=== PATIENT | male | born 1950 | race Caucasian/White ===

== ENCOUNTER 2018-10-20 14:41 | Emergency (ER) | payer MEDICARE, OTHER ==
[~2018-10-20] VITALS: Ht 172.7 cm; Wt 79.8 kg
[~2018-10-20 14:41] MED LIST: ASP81TEC PO; AZTH250C PO; ENLP5T PO; GLYB5TAB6 PO; INSU100I10 SQ; LEVO500T69 PO; SIMV20TA3 PO; SITA100T PO
--- OUTSIDE RECORDS SUMMARY | 2018-10-20 14:47 | XMS REPORT | CCD ---
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 Name Role Phone PP Unavailable CCM Unavailable Summary Purpose Interface Exchange Insurance Providers Payer name Policy type / Coverage type Covered constitution party ID Effective Begin Date Effective End Date [employer] Commercial Insurance [id number] Unknown Unknown WPS Medicare Part B Commercial Insurance [id number] Unknown Unknown Family history Mother Diagnosis Age At Onset Hypertension Unknown Father Diagnosis Age At Onset Cancer Unknown Social History Social History Element Codes Description Effective Dates Tobacco history SNOMED CT: 339644090 Currently uses smokeless tobacco Chews 11/26/2015 Frequency of drinks SNOMED CT: 938821335 14 drinks per week About 2 beers per night- More on Fridays11/26/2015 Marital status Unknown [place] 11/11/2014 Number of children Unknown 3 11/11/[address]: 710190 Currently drinks alcohol beer 11/11/2014 Allergies, Adverse Reactions, Alerts Substance Reaction Codes Entered Date Inactivated Date Status * NO KNOWN FOOD ALLERGIES Unknown 11/11/2014 No Inactive Date Active * NO KNOWN DRUG ALLERGIES Unknown 11/11/2014 No Inactive Date Active Past Medical History Illness Codes Condition Status Onset Date Resolved Date Essential (primary) hypertension ICD-9: 401.1 ICD-10: I10 Active 06/23/2016 Unknown Mixed hyperlipidemia ICD-9: 272.2 ICD-10: E78.2 Active 06/13/2017 Unknown Type 2 diabetes mellitus with hyperglycemia ICD-9: 250.02 ICD-10: E11.65 Active 11/10/2014 Unknown Diabetes Unknown Active 06/13/2017 Unknown Dysuria ICD-9: 788.1 ICD-10: R30.0 Active 06/13/2017 Unknown Type 2 diabetes mellitus without complications ICD-9: 250.00 ICD-10: E11.9 Active 02/24/2016 Unknown Essential (primary) hypertension ICD-9: 401.9 ICD-10: I10 Active 11/10/2014 Unknown Hyperlipidemia, unspecified ICD-9: 272.4 ICD-10: E78.5 Active 11/10/2014 Unknown ESSENTIAL HYPERTENSION ICD-9: 401.9 Active 11/10/2014 Unknown Hyperlipidemia Unknown Active 11/11/2014 Unknown Hypertension Unknown Active 11/11/2014 Unknown Diabetes mellitus out of control ICD-9: 250.02 Active 2014 Unknown HYPERLIPIDEMIA ICD-9: 272.4 Active 11/10/2014 Unknown Problems Condition Codes Effective Dates Condition Status Essential (primary) hypertension ICD-9: 401.1 ICD-10: I10 06/23/2016 Active Mixed hyperlipidemia ICD-9: 272.2 ICD-10: E78.2 06/13/2017 Active Type 2 diabetes mellitus with hyperglycemia ICD-9: 250.02 ICD-10: E11.65 11/10/2014 Active Diabetes Unknown 06/13/2017 Active Dysuria ICD-9: 788.1 ICD-10: R30.0 06/13/2017 Active Type 2 diabetes mellitus without complications ICD-9: 250.00 ICD-10: E11.9 02/24/2016 Active Essential (primary) hypertension ICD-9: 401.9 ICD-10: I10 11/10/2014 Active Hyperlipidemia, unspecified ICD-9: 272.4 ICD-10: E78.5 11/10/2014 Active ESSENTIAL HYPERTENSION ICD-9: 401.9 11/10/2014 Active Hyperlipidemia Unknown 11/11/2014 Active Hypertension Unknown 11/11/2014 Active Diabetes mellitus out of control ICD-9: 250.02 11/10/2014 Active HYPERLIPIDEMIA ICD-9: 272.4 11/10/2014 Active Medications Medication Codes Instructions Start Date Stop Date Status Fill Instructions Lantus Solostar U-100 Insulin 100 unit/mL (3 mL) subcutaneous pen RxNorm: 942530 INJECT 30 UNITS UNDER THE SKIN TWO TIMES A DAY 10/0603/04/2019 Active Lantus Solostar U-100 Insulin 100 unit/mL (3 mL) subcutaneous pen RxNorm: 083683 INJECT 30 UNITS UNDER THE SKIN TWO TIMES A DAY 08/0110/05/2018 Inactive Lantus Solostar U-100 Insulin 100 unit/mL (3 mL) subcutaneous pen RxNorm: 108658 Unit(s) INJECT 35 UNITS UNDER THE SKIN TWO TIMES A DAY 07/10/2018 07/31/2018 Inactive Updated script atorvastatin 40 mg tablet RxNorm: 072084 TAKE ONE TABLET BY MOUTH DAILY 06/15/2018 12/11/2018 Active Lantus Solostar U-100 Insulin 100 unit/mL (3 mL) subcutaneous pen RxNorm: 981785 INJECT 30 UNITS UNDER THE SKIN TWO TIMES A DAY 05/0407/09/2018 Inactive Lantus Solostar U-100 Insulin 100 unit/mL (3 mL) subcutaneous pen RxNorm: 183262 INJECT 30 UNITS UNDER THE SKIN TWO TIMES A DAY 01/2004/29/2018 Inactive atorvastatin 40 mg tablet RxNorm: 253228 TAKE ONE TABLET BY MOUTH DAILY 12/12/2017 06/09/2018 Inactive Lantus Solostar U-100 Insulin 100 unit/mL (3 mL) subcutaneous pen RxNorm: 121058 INJECT 30 UNITS UNDER THE SKIN TWO TIMES A DAY 11/0701/19/2018 Inactive enalapril maleate 10 mg tablet RxNorm: 277311 1 Tablet(s) PO daily TAKE ONE TABLET BY MOUTH DAILY 10/11/20172018 Active enalapril maleate 10 mg tablet RxNorm: 827291 TAKE ONE TABLET BY MOUTH DAILY 07/11/2017 10/10/2017 Inactive enalapril maleate 10 mg tablet RxNorm: 843643 1 Tablet(s) PO daily TAKE ONE TABLET BY MOUTH DAILY 07/11/20172017 Inactive Lantus Solostar 100 unit/mL (3 mL) subcutaneous insulin pen RxNorm: 947699 INJECT 55 UNITS UNDER THE SKIN DAILY 07/05/2017 07/09/2018 Inactive Request already responded to by other means (e.g. phone or fax) OneTouch Verio strips RxNorm: USE TO TEST BLOOD SUGAR DAILY 11/06/2017 Inactive Lantus Solostar U-100 Insulin 100 unit/mL (3 mL) subcutaneous pen RxNorm: 033697 30 Unit(s) SQ BID 06/28/201707/2017 Inactive Lantus Solostar 100 unit/mL (3 mL) subcutaneous insulin pen RxNorm: 175398 30 Unit(s) BID 06/14/2017 06/17/2017 Inactive Lantus Solostar 100 unit/mL (3 mL) subcutaneous insulin pen RxNorm: 362809 INJECT 55 UNITS UNDER THE SKIN DAILY 03/09/2017 06/13/2017 Inactive enalapril maleate 10 mg tablet RxNorm: 325157 TAKE ONE TABLET BY MOUTH DAILY 12/31/2016 06/28/2017 Inactive atorvastatin 40 mg tablet RxNorm: 799602 TAKE ONE TABLET BY MOUTH DAILY 11/19/2016 11/13/2017 Inactive Lantus Solostar 100 unit/mL (3 mL) subcutaneous insulin pen RxNorm: 737687 55 Unit(s) daily 10/12/2016 03/08/2017 Inactive Lantus Solostar 100 unit/mL (3 mL) subcutaneous insulin pen RxNorm: 909001 INJECT 40 UNITS UNDER THE SKIN EVERY EVENING 07/22/2016 10/11/2016 Inactive enalapril maleate 10 mg tablet RxNorm: 830419 TAKE ONE TABLET BY MOUTH DAILY 03/23/2016 12/17/2016 Inactive Lantus Solostar 100 unit/mL (3 mL) subcutaneous insulin pen RxNorm: 063679 40 Unit(s) SQ QPM 01/14/2016 07/21/2016 Inactive atorvastatin 40 mg tablet RxNorm: 393486 1 Tablet(s) PO daily 11/20/2015 11/13/2016 Inactive Lantus Solostar 100 unit/mL (3 mL) subcutaneous insulin pen RxNorm: 312283 40 Unit(s) SQ QPM 01/22/2015 01/13/2016 Inactive please use for next fill 90 day supply OneTouch Verio strips RxNorm: 1 test Miscellaneous TID as needed 01/22/2015 06/27/2017 Inactive BD Pen Mini subcutaneous RxNorm: 1 SQ daily 01/21/2015 No Stop Date Active needles to fit lantus pen Lantus Solostar 100 unit/mL (3 mL) subcutaneous insulin pen RxNorm: 183579 35 u x 3 days then 40 u daily there after Unit(s) SQ QPM 201401/21/2015 Inactive please use for next fill 90 day supply glyburide 5 mg tablet RxNorm: 797641 1 Tablet(s) PO BID 201401/17/2015 Inactive enalapril maleate 10 mg tablet RxNorm: 893274 1 Tablet(s) PO daily 11/11/2014 11/10/2014 Inactive atorvastatin 40 mg tablet RxNorm: 123599 1 Tablet(s) PO daily 11/11/2014 11/10/2014 Inactive Lantus Solostar 100 unit/mL (3 mL) subcutaneous insulin pen RxNorm: 214882 30 Unit(s) SQ QPM 11/11/2014 01/20/2015 Inactive atorvastatin 40 mg tablet RxNorm: 804824 1 Tablet(s) PO daily 11/11/2014 11/05/2015 Inactive enalapril maleate 10 mg tablet RxNorm: 577226 1 Tablet(s) PO daily 11/11/2014 11/05/2015 Inactive BD Pen Mini subcutaneous RxNorm: 1 SQ daily No Start Date 01/20/2015 Inactive needles to fit lantus pen glyburide 5 mg tablet RxNorm: 766402 1 Tablet(s) PO daily No Start Date 11/10/2014 Inactive Medication Administered No Medication Administered data Immunizations No Immunization data Assessments Condition Codes Effective Dates Type 2 diabetes mellitus with hyperglycemia ICD-10: E11.65 ICD-9: 250.02 07/05/2018 Mixed hyperlipidemia ICD-10: E78.2 ICD-9: 272.2 07/05/2018 Essential (primary) hypertension ICD-10: I10 ICD-9: 401.1 07/05/2018 Type 2 diabetes mellitus without complications ICD-10: E11.9 ICD-9: 250.00 06/13/2017 Dysuria ICD-10: R30.0 ICD-9: 788.1 06/13/2017 Essential (primary) hypertension ICD-10: I10 ICD-9: 401.9 11/26/2015 Hyperlipidemia, unspecified ICD-10: E78.5 ICD-9: 272.4 11/20/2015 ESSENTIAL HYPERTENSION ICD-9: 401.9 01/22 Diabetes mellitus out of control ICD-9: 250.02 01/22/2015 HYPERLIPIDEMIA ICD-9: 272.4 11/11/2014 Reason For Visit Reason For Visit Effective Dates Notes diabetes mellitus 07/05/2018 diabetes mellitus 06/13/2017 diabetes mellitus 10/12/2016 diabetes mellitus 06/23/2016 diabetes mellitus 02/25/2016 diabetes mellitus 01/14/2016 diabetes mellitus 12/10/2015 diabetes mellitus 11/26/2015 diabetes mellitus 01/22/2015 diabetes mellitus 11/11/2014 Results Observation Observation Code Item Item Code Result Date Lipid Ord30 CHOL 106 mg/dL 07/06/2018 Lipid Ord30 HDL 33.0 mg/dl 07/06/2018 Lipid Ord30 TRIG 76 mg/dL 07/06/2018 Lipid Ord30 LDL 58 mg/dL 07/06/2018 Lipid Ord30 C/HDL 3.2 Ratio 07/06/2018 Comp Metabolic Tbd630 NA 140 mEq/L 07/06/2018 Comp Metabolic Hmp015 K 4.4 mEq/L 07/06/2018 Comp Metabolic Liv181 CL 103 mEq/L 07/06/2018 Comp Metabolic Gtj373 CO2 31.0 mEq/L 07/06/2018 Comp Metabolic Ngl462 ANION GAP 10 07/06/2018 Comp Metabolic Hve407 GLUCOSE 151 mg/dL 07/06/2018 Comp Metabolic Mzd683 Creat 0.8 mg/dL 07/06/2018 Comp Metabolic Hwi037 eGFR 105 ml/min/1.73m2 07/06/2018 Comp Metabolic Fiw329 BUN 10 mg/dL 07/06/2018 Comp Metabolic Ahb545 B/C Ratio 12.8 Ratio 07/06/2018 Comp Metabolic Kln430 CALCIUM 8.8 mg/dL 07/06/2018 Comp Metabolic Ozm049 ALK PHOS 87 U/L 07/06/2018 Comp Metabolic Moi641 AST(SGOT) 16 U/L 07/06/2018 Comp Metabolic Fzc280 ALT(SGPT) 23 U/L 07/06/2018 Comp Metabolic Bom934 BILI T 1.0 mg/dL 07/06/2018 Comp Metabolic Soo653 ALBUMIN 4.1 g/dL 07/06/2018 Comp Metabolic Cxi181 TPRO 6.4 g/dL 07/06/2018 Comp Metabolic Muu055 GLOB 2.3 g/dL 07/06/2018 Comp Metabolic Yub618 A/G Ratio 1.8 Ratio 07/06/2018 Comp Metabolic Ymh539 Osmo 281 mOsmo 07/06/2018 Cbc With Differential Ord2 WBC 7.46 K/ul 07/06/2018 Cbc With Differential Ord2 RBC 4.71 M/ul 07/06/2018 Cbc With Differential Ord2 HGB 14.3 g/dl 07/06/2018 Cbc With Differential Ord2 HCT 43.0 % 07/06/2018 Cbc With Differential Ord2 Neut% 62.9 % 07/06/2018 Cbc With Differential Ord2 MCV 91.3 fl 07/06/2018 Cbc With Differential Ord2 Lymph% 26.8 % 07/06/2018 Cbc With Differential Ord2 MCH 30.4 pg 07/06/2018 Cbc With Differential Ord2 [place]% 8.8 % 07/06/2018 Cbc With Differential Ord2 MCHC 33.3 pg 07/06/2018 Cbc With Differential Ord2 Eos% 1.2 % 07/06/2018 Cbc With Differential Ord2 PLT 220 K/ul 07/06/2018 Cbc With Differential Ord2 Baso% 0.3 % 07/06/2018 Cbc With Differential Ord2 RDW 13.9 % 07/06/2018 Cbc With Differential Ord2 Neut ABS# 4.69 K/ul 07/06/2018 Cbc With Differential Ord2 Lymph ABS# 2.00 K/ul 07/06/2018 Cbc With Differential Ord2 [place] ABS# 0.7 K/ul 07/06/2018 Cbc With Differential Ord2 Eos ABS# 0.1 K/ul 07/06/2018 Cbc With Differential Ord2 Baso ABS# 0.0 K/ul 07/06/2018 %Hba1C Bmw516 % HbA1c 40404-2 7.9 % 07/06/2018 %Hba1C Jiy826 Gluc Ave 180 mg/dL 07/06/2018 Total Psa Ord10 PSA 1.18 ng/mL 07/06/2018 Tsh Ord6 TSH (3rd IS) 2.07 uIU/mL 07/06/2018 Microalbumin Hln581 MicroAlb <0.7 mg/dL 06/13/2017 Urinalysis Ord28 U-Color Yellow 06/13/2017 Urinalysis Ord28 U-Clarity Clear 06/13/2017 Urinalysis Ord28 U-Gluc 100 mg/dL 06/13/2017 Urinalysis Ord28 U-Bili Negative 06/13/2017 Urinalysis Ord28 U-Ketone Negative 06/13/2017 Urinalysis Ord28 U-SG 1.020 06/13/2017 Urinalysis Ord28 U-Blood Negative 06/13/2017 Urinalysis Ord28 U-pH 5.5 06/13/2017 Urinalysis Ord28 U-Protein Negative 06/13/2017 Urinalysis Ord28 U-Urobilin 0.2 E.U./dL E.U./dL 06/13/2017 Urinalysis Ord28 U-Nitrites Negative 06/13/2017 Urinalysis Ord28 U-Leuk Negative 06/13/2017 Urinalysis Ord28 U-Bact None 06/13/2017 Urinalysis Ord28 U-Squamous Epi 0-5 per/HPF 06/13/2017 Urinalysis Ord28 U-Crystal None per/HPF 06/13/2017 Urinalysis Ord28 U-Mucus 1+ 06/13/2017 Urinalysis Ord28 U-Renal tubular epi None 06/13/2017 Urinalysis Ord28 U-RBC RARE per/HPF 06/13/2017 Urinalysis Ord28 U-Transitional epi None per/HPF 06/13/2017 Urinalysis Ord28 U-WBC None per/HPF 06/13/2017 Urinalysis Ord28 U-Cast None per/HPF 06/13/2017 Urinalysis Ord28 U-VOL VOLUME SUFFICIENT (10mL) 06/13/2017 Urinalysis Ord28 U-Yeast NEGATIVE 06/13/2017 Urinalysis Ord28 U-Com Urine saved if culture needed (specimen acceptable for 48 hours from collection if refrigerated) 06/13/2017 Cbc With Differential Ord2 WBC 8.36 K/ul 06/13/2017 Cbc With Differential Ord2 RBC 4.60 M/ul 06/13/2017 Cbc With Differential Ord2 HGB 14.2 g/dl 06/13/2017 Cbc With Differential Ord2 HCT 41.6 % 06/13/2017 Cbc With Differential Ord2 Neut% 68.1 % 06/13/2017 Cbc With Differential Ord2 MCV 90.4 fl 06/13/2017 Cbc With Differential Ord2 Lymph% 21.7 % 06/13/2017 Cbc With Differential Ord2 MCH 30.9 pg 06/13/2017 Cbc With Differential Ord2 [place]% 9.1 % 06/13/2017 Cbc With Differential Ord2 MCHC 34.1 pg 06/13/2017 Cbc With Differential Ord2 Eos% 0.7 % 06/13/2017 Cbc With Differential Ord2 PLT 230 K/ul 06/13/2017 Cbc With Differential Ord2 Baso% 0.4 % 06/13/2017 Cbc With Differential Ord2 RDW 13.8 % 06/13/2017 Cbc With Differential Ord2 Neut ABS# 5.70 K/ul 06/13/2017 Cbc With Differential Ord2 Lymph ABS# 1.81 K/ul 06/13/2017 Cbc With Differential Ord2 [place] ABS# 0.8 K/ul 06/13/2017 Cbc With Differential Ord2 Eos ABS# 0.1 K/ul 06/13/2017 Cbc With Differential Ord2 Baso ABS# 0.0 K/ul 06/13/2017 Lipid Ord30 CHOL 138 mg/dL 06/13/2017 Lipid Ord30 HDL 58.0 mg/dl 06/13/2017 Lipid Ord30 TRIG 83 mg/dL 06/13/2017 Lipid Ord30 LDL 63 mg/dL 06/13/2017 Lipid Ord30 C/HDL 2.4 Ratio 06/13/2017 Comp Metabolic Enr680 NA 140 mEq/L 06/13/2017 Comp Metabolic Zdh407 K 4.6 mEq/L 06/13/2017 Comp Metabolic Fct382 CL 105 mEq/L 06/13/2017 Comp Metabolic Jlf934 CO2 28.0 mEq/L 06/13/2017 Comp Metabolic Cii067 ANION GAP 12 06/13/2017 Comp Metabolic Qaf830 GLUCOSE 126 mg/dL 06/13/2017 Comp Metabolic Avu601 Creat 0.8 mg/dL 06/13/2017 Comp Metabolic Qxq330 eGFR 104 ml/min/1.73m2 06/13/2017 Comp Metabolic Qth036 BUN 14 mg/dL 06/13/2017 Comp Metabolic Blh801 B/C Ratio 17.7 Ratio 06/13/2017 Comp Metabolic Fhg368 CALCIUM 9.4 mg/dL 06/13/2017 Comp Metabolic Aac876 ALK PHOS 74 U/L 06/13/2017 Comp Metabolic Ekf953 AST(SGOT) 19 U/L 06/13/2017 Comp Metabolic Xqj319 ALT(SGPT) 22 U/L 06/13/2017 Comp Metabolic Rfm663 BILI T 1.2 mg/dL 06/13/2017 Comp Metabolic Lwy052 ALBUMIN 4.5 g/dL 06/13/2017 Comp Metabolic Ndx199 TPRO 6.6 g/dL 06/13/2017 Comp Metabolic Rin968 GLOB 2.1 g/dL 06/13/2017 Comp Metabolic Lam526 A/G Ratio 2.1 Ratio 06/13/2017 Comp Metabolic Eus912 Osmo 281 mOsmo 06/13/2017 %Hba1C Nsu388 % HbA1c 04467-4 7.6 % 06/13/2017 %Hba1C Xfi334 Gluc Ave 171 mg/dL 06/13/2017 Tsh Ord6 hTSH II 2.04 uIU/mL 09/14/2016 Comp Metabolic Uvn427 NA 138 mEq/L 09/14/2016 Comp Metabolic Ezk278 K 4.5 mEq/L 09/14/2016 Comp Metabolic Zyr259 CL 103 mEq/L 09/14/2016 Comp Metabolic Qtc823 CO2 29.0 mEq/L 09/14/2016 Comp Metabolic Wsd956 ANION GAP 11 09/14/2016 Comp Metabolic Scj967 GLUCOSE 234 mg/dL 09/14/2016 Comp Metabolic Rtt714 Creat 0.9 mg/dL 09/14/2016 Comp Metabolic Lvs661 eGFR 86 ml/min/1.73m2 09/14/2016 Comp Metabolic Qoh074 BUN 16 mg/dL 09/14/2016 Comp Metabolic Zfv276 B/C Ratio 17.2 Ratio 09/14/2016 Comp Metabolic Fxs841 CALCIUM 9.0 mg/dL 09/14/2016 Comp Metabolic Llm178 ALK PHOS 69 U/L 09/14/2016 Comp Metabolic Ogk907 AST(SGOT) 21 U/L 09/14/2016 Comp Metabolic Wvt431 ALT(SGPT) 26 U/L 09/14/2016 Comp Metabolic Rhv396 BILI T 1.1 mg/dL 09/14/2016 Comp Metabolic Ask803 ALBUMIN 4.2 g/dL 09/14/2016 Comp Metabolic Atj822 TPRO 6.2 g/dL 09/14/2016 Comp Metabolic Ibl117 GLOB 2.0 g/dL 09/14/2016 Comp Metabolic Jif989 A/G Ratio 2.1 Ratio 09/14/2016 Comp Metabolic Amb101 Osmo 284 mOsmo 09/14/2016 Cbc With Differential Ord2 WBC 6.67 K/ul 09/14/2016 Cbc With Differential Ord2 RBC 4.42 M/ul 09/14/2016 Cbc With Differential Ord2 HGB 13.9 g/dl 09/14/2016 Cbc With Differential Ord2 HCT 40.6 % 09/14/2016 Cbc With Differential Ord2 Neut% 66.8 % 09/14/2016 Cbc With Differential Ord2 MCV 91.9 fl 09/14/2016 Cbc With Differential Ord2 Lymph% 23.8 % 09/14/2016 Cbc With Differential Ord2 MCH 31.4 pg 09/14/2016 Cbc With Differential Ord2 [place]% 8.5 % 09/14/2016 Cbc With Differential Ord2 MCHC 34.2 pg 09/14/2016 Cbc With Differential Ord2 Eos% 0.6 % 09/14/2016 Cbc With Differential Ord2 PLT 192 K/ul 09/14/2016 Cbc With Differential Ord2 Baso% 0.3 % 09/14/2016 Cbc With Differential Ord2 RDW 14.3 % 09/14/2016 Cbc With Differential Ord2 Neut ABS# 4.45 K/ul 09/14/2016 Cbc With Differential Ord2 Lymph ABS# 1.59 K/ul 09/14/2016 Cbc With Differential Ord2 [place] ABS# 0.6 K/ul 09/14/2016 Cbc With Differential Ord2 Eos ABS# 0.0 K/ul 09/14/2016 Cbc With Differential Ord2 Baso ABS# 0.0 K/ul 09/14/2016 Lipid Ord30 CHOL 133 mg/dL 09/14/2016 Lipid Ord30 HDL 66.0 mg/dl 09/14/2016 Lipid Ord30 TRIG 50 mg/dL 09/14/2016 Lipid Ord30 LDL 57 mg/dL 09/14/2016 Lipid Ord30 C/HDL 2.0 Ratio 09/14/2016 %Hba1C Khp927 % HbA1c 54236-4 7.2 % 09/14/2016 %Hba1C Lgi954 Gluc Ave 160 mg/dL 09/14/2016 %Hba1C Zsh497 % HbA1c 15164-3 7.3 % 02/23/2016 %Hba1C Iab554 Gluc Ave 163 mg/dL 02/23/2016 Comp Metabolic Osg444 NA 137 mEq/L 11/24/2015 Comp Metabolic Kzb916 K 4.1 mEq/L 11/24/2015 Comp Metabolic Snk284 CL 102 mEq/L 11/24/2015 Comp Metabolic Ykb659 CO2 28.0 mEq/L 11/24/2015 Comp Metabolic Gxf840 ANION GAP 11 11/24/2015 Comp Metabolic Iok903 GLUCOSE 102 mg/dL 11/24/2015 Comp Metabolic Eep991 Creat 0.8 mg/dL 11/24/2015 Comp Metabolic Gnf523 eGFR 98 ml/min/1.73m2 11/24/2015 Comp Metabolic Rtu313 BUN 17 mg/dL 11/24/2015 Comp Metabolic Gcl589 B/C Ratio 20.5 Ratio 11/24/2015 Comp Metabolic Mif270 CALCIUM 8.8 mg/dL 11/24/2015 Comp Metabolic Dyr956 ALK PHOS 61 U/L 11/24/2015 Comp Metabolic Wbj294 AST(SGOT) 23 U/L 11/24/2015 Comp Metabolic Wwx713 ALT(SGPT) 24 U/L 11/24/2015 Comp Metabolic Tqs342 BILI T 1.1 mg/dL 11/24/2015 Comp Metabolic Rmc387 ALBUMIN 4.0 g/dL 11/24/2015 Comp Metabolic Exg745 TPRO 6.2 g/dL 11/24/2015 Comp Metabolic Sca437 GLOB 2.2 g/dL 11/24/2015 Comp Metabolic Kpz278 A/G Ratio 1.8 Ratio 11/24/2015 Comp Metabolic Bac279 Osmo 276 mOsmo 11/24/2015 %Hba1C Rqg874 % HbA1c 33613-0 10.2 % 11/24/2015 %Hba1C Exs015 Gluc Ave 246 mg/dL 11/24/2015 Cbc With Differential Ord2 WBC 7.78 K/ul 11/24/2015 Cbc With Differential Ord2 RBC 4.70 M/ul 11/24/2015 Cbc With Differential Ord2 HGB 14.5 g/dl 11/24/2015 Cbc With Differential Ord2 HCT 42.7 % 11/24/2015 Cbc With Differential Ord2 Neut% 72.0 % 11/24/2015 Cbc With Differential Ord2 MCV 90.9 fl 11/24/2015 Cbc With Differential Ord2 Lymph% 14.4 % 11/24/2015 Cbc With Differential Ord2 MCH 30.9 pg 11/24/2015 Cbc With Differential Ord2 [place]% 12.1 % 11/24/2015 Cbc With Differential Ord2 MCHC 34.0 pg 11/24/2015 Cbc With Differential Ord2 Eos% 1.2 % 11/24/2015 Cbc With Differential Ord2 PLT 216 K/ul 11/24/2015 Cbc With Differential Ord2 Baso% 0.3 % 11/24/2015 Cbc With Differential Ord2 RDW 13.6 % 11/24/2015 Cbc With Differential Ord2 Neut ABS# 5.61 K/ul 11/24/2015 Cbc With Differential Ord2 Lymph ABS# 1.12 K/ul 11/24/2015 Cbc With Differential Ord2 [place] ABS# 0.9 K/ul 11/24/2015 Cbc With Differential Ord2 Eos ABS# 0.1 K/ul 11/24/2015 Cbc With Differential Ord2 Baso ABS# 0.0 K/ul 11/24/2015 Cbc With Differential Ord2 New Analyzer Notice Please note new ref ranges starting 07-16-2015 due to implemntation of new five part differential hematolgy analyzer. 11/24/2015 Tsh Ord6 hTSH II 1.40 uIU/mL 11/24/2015 Lipid Ord30 CHOL 137 mg/dL 11/24/2015 Lipid Ord30 HDL 63.0 mg/dl 11/24/2015 Lipid Ord30 TRIG 63 mg/dL 11/24/2015 Lipid Ord30 LDL 61 mg/dL 11/24/2015 Lipid Ord30 C/HDL 2.2 Ratio 11/24/2015 Comp Metabolic Yer593 NA 140 mEq/L 01/17/2015 Comp Metabolic Cdc823 K 4.3 mEq/L 01/17/2015 Comp Metabolic Sjg409 CL 104 mEq/L 01/17/2015 Comp Metabolic Bdn178 CO2 27.0 mEq/L 01/17/2015 Comp Metabolic Sxk171 ANION GAP 13 01/17/2015 Comp Metabolic Goi761 GLUCOSE 146 mg/dL 01/17/2015 Comp Metabolic Jad312 Creat 0.8 mg/dL 01/17/2015 Comp Metabolic Lyi847 eGFR 97 ml/min/1.73m2 01/17/2015 Comp Metabolic Dqf840 BUN 14 mg/dL 01/17/2015 Comp Metabolic Vyx898 B/C Ratio 16.7 Ratio 01/17/2015 Comp Metabolic Jmp993 CALCIUM 9.5 mg/dL 01/17/2015 Comp Metabolic Xzp033 ALK PHOS 70 U/L 01/17/2015 Comp Metabolic Ojm397 AST(SGOT) 19 U/L 01/17/2015 Comp Metabolic Hme403 ALT(SGPT) 27 U/L 01/17/2015 Comp Metabolic Aiu584 BILI T 1.3 mg/dL 01/17/2015 Comp Metabolic Huh584 ALBUMIN 4.3 g/dL 01/17/2015 Comp Metabolic Oru128 TPRO 6.7 g/dL 01/17/2015 Comp Metabolic Zlo732 GLOB 2.4 g/dL 01/17/2015 Comp Metabolic Fvb582 A/G Ratio 1.8 Ratio 01/17/2015 Comp Metabolic Xge765 Osmo 283 mOsmo 01/17/2015 Lipid Ord30 CHOL 131 mg/dL 01/17/2015 Lipid Ord30 HDL 58.0 mg/dl 01/17/2015 Lipid Ord30 TRIG 61 mg/dL 01/17/2015 Lipid Ord30 LDL 61 mg/dL 01/17/2015 Lipid Ord30 C/HDL 2.3 Ratio 01/17/2015 Cbc With Differential Ord2 WBC 7.7 K/uL 01/17/2015 Cbc With Differential Ord2 LYM 1.5 K/uL 01/17/2015 Cbc With Differential Ord2 LYM% 20.1 % 01/17/2015 Cbc With Differential Ord2 NEUT/GRAN 5.7 K/uL 01/17/2015 Cbc With Differential Ord2 NEUT/GRAN % 73.5 % 01/17/2015 Cbc With Differential Ord2 MID 0.5 K/uL 01/17/2015 Cbc With Differential Ord2 MID% 6.4 % 01/17/2015 Cbc With Differential Ord2 RBC 4.68 M/uL 01/17/2015 Cbc With Differential Ord2 HGB 14.5 g/dL 01/17/2015 Cbc With Differential Ord2 HCT 43.7 % 01/17/2015 Cbc With Differential Ord2 MCV 93 fL 01/17/2015 Cbc With Differential Ord2 MCH 31 pg 01/17/2015 Cbc With Differential Ord2 MCHC 33 g/dL 01/17/2015 Cbc With Differential Ord2 PLT 238 K/uL 01/17/2015 Cbc With Differential Ord2 RDW 14.0 % 01/17/2015 Tsh Ord6 hTSH II 1.88 uIU/mL 01/17/2015 %Hba1C Pgg432 % HbA1c 21616-1 8.8 % 01/17/2015 %Hba1C Avz680 Gluc Ave 206 mg/dL 01/17/2015 Review of Systems System Result Effective Dates Constitutional No recent illness 2018 Constitutional No chills 07/05/2018 Constitutional No fatigue 07/05/2018 Constitutional No fever 07/05/2018 Ears/Nose/Throat/Neck No dizziness 2018 Ears/Nose/Throat/Neck No headache 2018 Cardiovascular No chest pain/pressure 08/2018 Cardiovascular hypertension 07/05/2018 Cardiovascular No near-syncope/dizziness 07/05/2018 Cardiovascular No palpitations 2018 Respiratory No chest congestion 2018 Respiratory No cough 07/05/2018 Gastrointestinal No abdominal pain 2018 Gastrointestinal No constipation 2018 Gastrointestinal No diarrhea 07/05/2018 Gastrointestinal No nausea 07/05/2018 Gastrointestinal No vomiting 07/05/2018 Genitourinary/Nephrology No dysuria 07/05 Musculoskeletal No stiffness 07/05/2018 Musculoskeletal No arthralgia(s) 2018 Dermatologic No rash 07/05/2018 Dermatologic No scar 07/05/2018 Neurologic No alteration of consciousness 07/05/2018 Psychiatric No anxiety 07/05/2018 Psychiatric No depression 07/05/2018 Endocrine diabetes mellitus type 2 2018 Constitutional No recent illness 2016 Constitutional No chills 06/13/2017 Constitutional No fatigue 06/13/2017 Constitutional No fever 06/13/2017 Ears/Nose/Throat/Neck No dizziness 2016 Ears/Nose/Throat/Neck No headache 2016 Cardiovascular No chest pain/pressure 05/2017 Cardiovascular No near-syncope/dizziness 06/13/2017 Cardiovascular No palpitations 2016 Respiratory No chest congestion 2016 Respiratory No cough 06/13/2017 Gastrointestinal No abdominal pain 2016 Gastrointestinal No constipation 2016 Gastrointestinal No diarrhea 06/13/2017 Gastrointestinal No nausea 06/13/2017 Gastrointestinal No vomiting 06/13/2017 Genitourinary/Nephrology No dysuria 06/13 Musculoskeletal No stiffness 06/13/2017 Musculoskeletal No arthralgia(s) 2016 Dermatologic No rash 06/13/2017 Dermatologic No scar 06/13/2017 Neurologic No alteration of consciousness 06/13/2017 Psychiatric No anxiety 06/13/2017 Psychiatric No depression 06/13/2017 Endocrine diabetes mellitus type 2 2016 Cardiovascular hypertension 06/13/2017 Constitutional No recent illness 2016 Constitutional No chills 10/12/2016 Constitutional No fatigue 10/12/2016 Constitutional No fever 10/12/2016 Ears/Nose/Throat/Neck No dizziness 2016 Ears/Nose/Throat/Neck No headache 2016 Cardiovascular No chest pain/pressure 05/2017 Cardiovascular No near-syncope/dizziness 10/12/2016 Cardiovascular No palpitations 2016 Respiratory No chest congestion 2016 Respiratory No cough 10/12/2016 Gastrointestinal No abdominal pain 2016 Gastrointestinal No constipation 2016 Gastrointestinal No diarrhea 10/12/2016 Gastrointestinal No nausea 10/12/2016 Gastrointestinal No vomiting 10/12/2016 Genitourinary/Nephrology No dysuria 10/12 Musculoskeletal No stiffness 10/12/2016 Musculoskeletal No arthralgia(s) 2016 Dermatologic No rash 10/12/2016 Dermatologic No scar 10/12/2016 Neurologic No alteration of consciousness 10/12/2016 Psychiatric No anxiety 10/12/2016 Psychiatric No depression 10/12/2016 Endocrine diabetes mellitus type 2 2016 Constitutional No recent illness 2015 Constitutional No chills 06/23/2016 Constitutional No fever 06/23/2016 Cardiovascular No chest pain/pressure Cardiovascular No near-syncope/dizziness 06/23/2016 Cardiovascular No palpitations 2015 Respiratory No chest congestion 2015 Respiratory No cough 06/23/2016 Gastrointestinal No constipation 2015 Gastrointestinal No diarrhea 06/23/2016 Neurologic No alteration of consciousness 06/23/2016 Psychiatric No anxiety 06/23/2016 Psychiatric No depression 06/23/2016 Endocrine diabetes mellitus type 2 2015 Constitutional No fatigue 06/23/2016 Ears/Nose/Throat/Neck No dizziness 2015 Ears/Nose/Throat/Neck No headache 2015 Gastrointestinal No abdominal pain 2015 Gastrointestinal No nausea 06/23/2016 Gastrointestinal No vomiting 06/23/2016 Genitourinary/Nephrology No dysuria 06/23 Musculoskeletal No stiffness 06/23/2016 Musculoskeletal No arthralgia(s) 2015 Dermatologic No rash 06/23/2016 Dermatologic No scar 06/23/2016 Constitutional No recent illness 2015 Constitutional No chills 02/25/2016 Constitutional No fever 02/25/2016 Cardiovascular No chest pain/pressure Cardiovascular No near-syncope/dizziness 02/25/2016 Cardiovascular No palpitations 2015 Respiratory No chest congestion 2015 Respiratory No cough 02/25/2016 Gastrointestinal No constipation 2015 Gastrointestinal No diarrhea 02/25/2016 Neurologic No alteration of consciousness 02/25/2016 Psychiatric No anxiety 02/25/2016 Psychiatric No depression 02/25/2016 Endocrine diabetes mellitus type 2 2015 Constitutional No recent illness 2015 Constitutional No chills 01/14/2016 Constitutional No fatigue 01/14/2016 Constitutional No fever 01/14/2016 Ears/Nose/Throat/Neck No dizziness 2015 Ears/Nose/Throat/Neck No headache 2015 Cardiovascular No chest pain/pressure Cardiovascular No near-syncope/dizziness 01/14/2016 Cardiovascular No palpitations 2015 Respiratory No chest congestion 2015 Respiratory No cough 01/14/2016 Gastrointestinal No abdominal pain 2015 Gastrointestinal No constipation 2015 Gastrointestinal No diarrhea 01/14/2016 Gastrointestinal No nausea 01/14/2016 Gastrointestinal No vomiting 01/14/2016 Genitourinary/Nephrology No dysuria 01/13 Musculoskeletal No stiffness 01/14/2016 Musculoskeletal No arthralgia(s) 2015 Dermatologic No rash 01/14/2016 Dermatologic No scar 01/14/2016 Neurologic No alteration of consciousness 01/14/2016 Psychiatric No anxiety 01/14/2016 Psychiatric No depression 01/14/2016 Endocrine diabetes mellitus type 2 2015 Constitutional No recent illness 2015 Constitutional No chills 12/10/2015 Constitutional No fatigue 12/10/2015 Constitutional No fever 12/10/2015 Ears/Nose/Throat/Neck No dizziness 2015 Ears/Nose/Throat/Neck No headache 2015 Cardiovascular No chest pain/pressure 02/2016 Cardiovascular No near-syncope/dizziness 12/10/2015 Cardiovascular No palpitations 2015 Respiratory No chest congestion 2015 Respiratory No cough 12/10/2015 Gastrointestinal No abdominal pain 2015 Gastrointestinal No constipation 2015 Gastrointestinal No diarrhea 12/10/2015 Gastrointestinal No nausea 12/10/2015 Gastrointestinal No vomiting 12/10/2015 Genitourinary/Nephrology No dysuria 12/09 Musculoskeletal No stiffness 12/10/2015 Musculoskeletal No arthralgia(s) 2015 Dermatologic No rash 12/10/2015 Dermatologic No scar 12/10/2015 Neurologic No alteration of consciousness 12/10/2015 Psychiatric No anxiety 12/10/2015 Psychiatric No depression 12/10/2015 Endocrine diabetes mellitus type 2 2015 Constitutional No recent illness 2015 Constitutional No chills 11/26/2015 Constitutional No fatigue 11/26/2015 Constitutional No fever 11/26/2015 Ears/Nose/Throat/Neck No dizziness 2015 Ears/Nose/Throat/Neck No headache 2015 Cardiovascular No chest pain/pressure Cardiovascular No near-syncope/dizziness 11/26/2015 Cardiovascular No palpitations 2015 Respiratory No chest congestion 2015 Respiratory No cough 11/26/2015 Gastrointestinal No abdominal pain 2015 Gastrointestinal No constipation 2015 Gastrointestinal No diarrhea 11/26/2015 Gastrointestinal No nausea 11/26/2015 Gastrointestinal No vomiting 11/26/2015 Genitourinary/Nephrology No dysuria 11/25 Musculoskeletal No stiffness 11/26/2015 Musculoskeletal No arthralgia(s) 2015 Dermatologic No rash 11/26/2015 Dermatologic No scar 11/26/2015 Neurologic No alteration of consciousness 11/26/2015 Psychiatric No anxiety 11/26/2015 Psychiatric No depression 11/26/2015 Endocrine diabetes mellitus type 2 2015 Constitutional No recent illness 2014 Constitutional No chills 01/22/2015 Constitutional No fatigue 01/22/2015 Constitutional No fever 01/22/2015 Ears/Nose/Throat/Neck No dizziness 2014 Ears/Nose/Throat/Neck No headache 2014 Cardiovascular No chest pain/pressure Cardiovascular No near-syncope/dizziness 01/22/2015 Cardiovascular No palpitations 2014 Respiratory No chest congestion 2014 Respiratory No cough 01/22/2015 Gastrointestinal No abdominal pain 2014 Gastrointestinal No constipation 2014 Gastrointestinal No diarrhea 01/22/2015 Gastrointestinal No nausea 01/22/2015 Gastrointestinal No vomiting 01/22/2015 Genitourinary/Nephrology No dysuria 01/22 Musculoskeletal No stiffness 01/22/2015 Musculoskeletal No arthralgia(s) 2014 Dermatologic No rash 01/22/2015 Dermatologic No scar 01/22/2015 Neurologic No alteration of consciousness 01/22/2015 Psychiatric No anxiety 01/22/2015 Psychiatric No depression 01/22/2015 Endocrine diabetes mellitus type 2 2014 Constitutional No chills 11/11/2014 Constitutional No fatigue 11/11/2014 Constitutional No fever 11/11/2014 Constitutional No recent illness 2014 Ears/Nose/Throat/Neck No dizziness 2014 Ears/Nose/Throat/Neck No headache 2014 Cardiovascular No chest pain/pressure 05/2015 Cardiovascular No near-syncope/dizziness 11/11/2014 Cardiovascular No palpitations 2014 Respiratory No chest congestion 2014 Respiratory No cough 11/11/2014 Gastrointestinal No abdominal pain 2014 Gastrointestinal No constipation 2014 Gastrointestinal No diarrhea 11/11/2014 Gastrointestinal No nausea 11/11/2014 Gastrointestinal No vomiting 11/11/2014 Genitourinary/Nephrology No dysuria 11/11 Neurologic No alteration of consciousness 11/11/2014 Psychiatric No anxiety 11/11/2014 Psychiatric No depression 11/11/2014 Dermatologic No rash 11/11/2014 Dermatologic No scar 11/11/2014 Musculoskeletal No stiffness 11/11/2014 Musculoskeletal No arthralgia(s) 2014 Physical Exam Exam Name System Name Item Name Status Result Effective Dates Notes Full Exam - General 1994 Constitutional general appearance Development: well developed 07/05/2018 None Full Exam - General 1994 Constitutional general appearance Development: appears stated age 0107/05/2018 None Full Exam - General 1994 Constitutional general appearance Hygiene/Attention to Grooming: good hygiene 07/05/2018 None Full Exam - General 1994 Eyes pupils and irises Overall: pupils equal, round, reactive to light and accomodation 07/05/2018 None Full Exam - General 1994 Ears/Nose/Throat otoscopic exam Overall: external auditory canals clear 07/05/2018 None Full Exam - General 1994 Ears/Nose/Throat otoscopic exam Overall: tympanic membranes clear 07/05/2018 None Full Exam - General 1994 Ears/Nose/Throat oral cavity/pharynx/larynx Overall: oral mucosa clear 07/05/2018 None Full Exam - General 1994 Ears/Nose/Throat oral cavity/pharynx/larynx Overall: oropharyngeal mucosa clear 07/05/2018 None Full Exam - General 1994 Ears/Nose/Throat oral cavity/pharynx/larynx Overall: no masses 07/05/2018 None Full Exam - General 1994 Respiratory auscultation Overall: breath sounds clear bilaterally 07/05/2018 None Full Exam - General 1994 Respiratory respiratory effort/rhythm Overall: no retractions 07/05/2018 None Full Exam - General 1994 Respiratory respiratory effort/rhythm Overall: normal rate 07/05/2018 None Full Exam - General 1994 Cardiovascular extremities Overall: no clubbing 07/05/2018 None Full Exam - General 1994 Cardiovascular auscultation of heart Overall: regular rate 07/05/2018 None Full Exam - General 1994 Cardiovascular auscultation of heart Overall: normal heart sounds 07/05/2018 None Full Exam - General 1994 Abdomen abdominal exam Overall: no tenderness 07/05/2018 None Full Exam - General 1994 Abdomen abdominal exam Overall: normal bowel sounds 07/05/2018 None Full Exam - General 1994 Lymphatic neck nodes Overall: anterior cervical chain benign 07/05/2018 None Full Exam - General 1994 Lymphatic neck nodes Overall: posterior cervical chain benign 07/05/2018 None Full Exam - General 1994 Musculoskeletal gait and station Overall: normal gait 07/05/2018 None Full Exam - General 1994 Musculoskeletal gait and station Overall: normal station 07/05/2018 None Full Exam - General 1994 Musculoskeletal head and neck Overall: head atraumatic 07/05/2018 None Full Exam - General 1994 Musculoskeletal head and neck Overall: cervical spine benign 07/05/2018 None Full Exam - General 1994 Neurologic gait Overall: no ataxia, no unsteadiness 07/05/2018 None Full Exam - General 1994 Psychiatric orientation/consciousness Overall: oriented to person, place and time 07/05/2018 None Full Exam - General 1994 Psychiatric mood and affect Overall: normal mood and affect 07/05/2018 None Full Exam - General 1994 Constitutional general appearance Development: well developed 06/13/2017 None Full Exam - General 1994 Constitutional general appearance Development: appears stated age 1206/13/2017 None Full Exam - General 1994 Constitutional general appearance Hygiene/Attention to Grooming: good hygiene 06/13/2017 None Full Exam - General 1994 Ears/Nose/Throat otoscopic exam Overall: external auditory canals clear 06/13/2017 None Full Exam - General 1994 Ears/Nose/Throat otoscopic exam Overall: tympanic membranes clear 06/13/2017 None Full Exam - General 1994 Ears/Nose/Throat oral cavity/pharynx/larynx Overall: oral mucosa clear 06/13/2017 None Full Exam - General 1994 Ears/Nose/Throat oral cavity/pharynx/larynx Overall: oropharyngeal mucosa clear 06/13/2017 None Full Exam - General 1994 Ears/Nose/Throat oral cavity/pharynx/larynx Overall: no masses 06/13/2017 None Full Exam - General 1994 Respiratory auscultation Overall: breath sounds clear bilaterally 06/13/2017 None Full Exam - General 1994 Respiratory respiratory effort/rhythm Overall: no retractions 06/13/2017 None Full Exam - General 1994 Respiratory respiratory effort/rhythm Overall: normal rate 06/13/2017 None Full Exam - General 1994 Cardiovascular extremities Overall: no clubbing 06/13/2017 None Full Exam - General 1994 Cardiovascular auscultation of heart Overall: regular rate 06/13/2017 None Full Exam - General 1994 Cardiovascular auscultation of heart Overall: normal heart sounds 06/13/2017 None Full Exam - General 1994 Abdomen abdominal exam Overall: no tenderness 06/13/2017 None Full Exam - General 1994 Abdomen abdominal exam Overall: normal bowel sounds 06/13/2017 None Full Exam - General 1994 Musculoskeletal gait and station Overall: normal gait 06/13/2017 None Full Exam - General 1994 Musculoskeletal gait and station Overall: normal station 06/13/2017 None Full Exam - General 1994 Musculoskeletal head and neck Overall: head atraumatic 06/13/2017 None Full Exam - General 1994 Musculoskeletal head and neck Overall: cervical spine benign 06/13/2017 None Full Exam - General 1994 Psychiatric orientation/consciousness Overall: oriented to person, place and time 06/13/2017 None Full Exam - General 1994 Psychiatric mood and affect Overall: normal mood and affect 06/13/2017 None Full Exam - General 1994 Eyes pupils and irises Overall: pupils equal, round, reactive to light and accomodation 06/13/2017 None Full Exam - General 1994 Lymphatic neck nodes Overall: anterior cervical chain benign 06/13/2017 None Full Exam - General 1994 Lymphatic neck nodes Overall: posterior cervical chain benign 06/13/2017 None Full Exam - General 1994 Neurologic gait Overall: no ataxia, no unsteadiness 06/13/2017 None Full Exam - General 1994 Constitutional general appearance Development: well developed 10/12/2016 None Full Exam - General 1994 Constitutional general appearance Development: appears stated age 0410/12/2016 None Full Exam - General 1994 Constitutional general appearance Hygiene/Attention to Grooming: good hygiene 10/12/2016 None Full Exam - General 1994 Respiratory auscultation Overall: breath sounds clear bilaterally 10/12/2016 None Full Exam - General 1994 Respiratory respiratory effort/rhythm Overall: no retractions 10/12/2016 None Full Exam - General 1994 Respiratory respiratory effort/rhythm Overall: normal rate 10/12/2016 None Full Exam - General 1994 Cardiovascular extremities Overall: no clubbing 10/12/2016 None Full Exam - General 1994 Cardiovascular auscultation of heart Overall: regular rate 10/12/2016 None Full Exam - General 1994 Cardiovascular auscultation of heart Overall: normal heart sounds 10/12/2016 None Full Exam - General 1994 Psychiatric orientation/consciousness Overall: oriented to person, place and time 10/12/2016 None Full Exam - General 1994 Psychiatric mood and affect Overall: normal mood and affect 10/12/2016 None Full Exam - General 1994 Ears/Nose/Throat otoscopic exam Overall: tympanic membranes clear 10/12/2016 None Full Exam - General 1994 Ears/Nose/Throat otoscopic exam Overall: external auditory canals clear 10/12/2016 None Full Exam - General 1994 Ears/Nose/Throat oral cavity/pharynx/larynx Overall: oropharyngeal mucosa clear 10/12/2016 None Full Exam - General 1994 Ears/Nose/Throat oral cavity/pharynx/larynx Overall: no masses 10/12/2016 None Full Exam - General 1994 Ears/Nose/Throat oral cavity/pharynx/larynx Overall: oral mucosa clear 10/12/2016 None Full Exam - General 1994 Abdomen abdominal exam Overall: no tenderness 10/12/2016 None Full Exam - General 1994 Abdomen abdominal exam Overall: normal bowel sounds 10/12/2016 None Full Exam - General 1994 Musculoskeletal gait and station Overall: normal station 10/12/2016 None Full Exam - General 1994 Musculoskeletal gait and station Overall: normal gait 10/12/2016 None Full Exam - General 1994 Musculoskeletal head and neck Overall: cervical spine benign 10/12/2016 None Full Exam - General 1994 Musculoskeletal head and neck Overall: head atraumatic 10/12/2016 None Full Exam - General 1994 Constitutional general appearance Development: well developed 06/23/2016 None Full Exam - General 1994 Constitutional general appearance Development: appears stated age 1206/23/2016 None Full Exam - General 1994 Constitutional general appearance Hygiene/Attention to Grooming: good hygiene 06/23/2016 None Full Exam - General 1994 Respiratory auscultation Overall: breath sounds clear bilaterally 06/23/2016 None Full Exam - General 1994 Respiratory respiratory effort/rhythm Overall: no retractions 06/23/2016 None Full Exam - General 1994 Respiratory respiratory effort/rhythm Overall: normal rate 06/23/2016 None Full Exam - General 1994 Cardiovascular extremities Overall: no clubbing 06/23/2016 None Full Exam - General 1994 Cardiovascular auscultation of heart Overall: regular rate 06/23/2016 None Full Exam - General 1994 Cardiovascular auscultation of heart Overall: normal heart sounds 06/23/2016 None Full Exam - General 1994 Psychiatric orientation/consciousness Overall: oriented to person, place and time 06/23/2016 None Full Exam - General 1994 Psychiatric mood and affect Overall: normal mood and affect 06/23/2016 None Full Exam - General 1994 Eyes conjunctiva /eyelids Overall: conjunctiva clear 06/23/2016 None Full Exam - General 1994 Eyes conjunctiva /eyelids Overall: cornea clear 06/23/2016 None Full Exam - General 1994 Eyes conjunctiva /eyelids Overall: eyelids normal 06/23/2016 None Full Exam - General 1994 Eyes pupils and irises Overall: pupils equal, round, reactive to light and accomodation 06/23/2016 None Full Exam - General 1994 Ears/Nose/Throat otoscopic exam Overall: external auditory canals clear 06/23/2016 None Full Exam - General 1994 Ears/Nose/Throat otoscopic exam Overall: tympanic membranes clear 06/23/2016 None Full Exam - General 1994 Ears/Nose/Throat lips/teeth/gingiva Overall: benign lips 06/23/2016 None Full Exam - General 1994 Ears/Nose/Throat lips/teeth/gingiva Overall: normal dentition 06/23/2016 None Full Exam - General 1994 Ears/Nose/Throat oral cavity/pharynx/larynx Overall: oral mucosa clear 06/23/2016 None Full Exam - General 1994 Ears/Nose/Throat oral cavity/pharynx/larynx Overall: oropharyngeal mucosa clear 06/23/2016 None Full Exam - General 1994 Ears/Nose/Throat oral cavity/pharynx/larynx Overall: hypopharynx benign 06/23/2016 None Full Exam - General 1994 Ears/Nose/Throat oral cavity/pharynx/larynx Overall: no masses 06/23/2016 None Full Exam - General 1994 Abdomen abdominal exam Overall: no tenderness 06/23/2016 None Full Exam - General 1994 Abdomen abdominal exam Overall: normal bowel sounds 06/23/2016 None Full Exam - General 1994 Lymphatic neck nodes Overall: anterior cervical chain benign 06/23/2016 None Full Exam - General 1994 Lymphatic neck nodes Overall: posterior cervical chain benign 06/23/2016 None Full Exam - General 1994 Musculoskeletal spine, ribs and pelvis Overall: spine benign 06/23/2016 None Full Exam - General 1994 Musculoskeletal spine, ribs and pelvis Overall: sacroiliac joint benign 06/23/2016 None Full Exam - General 1994 Musculoskeletal spine, ribs and pelvis Overall: good posture 06/23/2016 None Full Exam - General 1994 Musculoskeletal head and neck Overall: head atraumatic 06/23/2016 None Full Exam - General 1994 Musculoskeletal head and neck Overall: cervical spine benign 06/23/2016 None Full Exam - General 1994 Integument inspection of skin Overall: few scattered moles, no gross abnormalities 06/23/2016 None Full Exam - General 1994 Neurologic deep tendon reflexes Overall: deep tendon reflexes intact 06/23/2016 None Full Exam - General 1994 Neurologic cranial nerves Overall: crainial nerves 2 - 12 grossly intact 06/23/2016 None Full Exam - General 1994 Constitutional general appearance Development: well developed 02/25/2016 None Full Exam - General 1994 Constitutional general appearance Development: appears stated age 0802/25/2016 None Full Exam - General 1994 Constitutional general appearance Hygiene/Attention to Grooming: good hygiene 02/25/2016 None Full Exam - General 1994 Respiratory auscultation Overall: breath sounds clear bilaterally 02/25/2016 None Full Exam - General 1994 Respiratory respiratory effort/rhythm Overall: no retractions 02/25/2016 None Full Exam - General 1994 Respiratory respiratory effort/rhythm Overall: normal rate 02/25/2016 None Full Exam - General 1994 Cardiovascular extremities Overall: no clubbing 02/25/2016 None Full Exam - General 1994 Cardiovascular auscultation of heart Overall: regular rate 02/25/2016 None Full Exam - General 1994 Cardiovascular auscultation of heart Overall: normal heart sounds 02/25/2016 None Full Exam - General 1994 Psychiatric orientation/consciousness Overall: oriented to person, place and time 02/25/2016 None Full Exam - General 1994 Psychiatric mood and affect Overall: normal mood and affect 02/25/2016 None Full Exam - General 1994 Constitutional general appearance Development: well developed 01/14/2016 None Full Exam - General 1994 Constitutional general appearance Development: appears stated age 0701/14/2016 None Full Exam - General 1994 Constitutional general appearance Hygiene/Attention to Grooming: good hygiene 01/14/2016 None Full Exam - General 1994 Respiratory auscultation Overall: breath sounds clear bilaterally 01/14/2016 None Full Exam - General 1994 Respiratory respiratory effort/rhythm Overall: no retractions 01/14/2016 None Full Exam - General 1994 Respiratory respiratory effort/rhythm Overall: normal rate 01/14/2016 None Full Exam - General 1994 Cardiovascular extremities Overall: no clubbing 01/14/2016 None Full Exam - General 1994 Cardiovascular auscultation of heart Overall: regular rate 01/14/2016 None Full Exam - General 1994 Cardiovascular auscultation of heart Overall: normal heart sounds 01/14/2016 None Full Exam - General 1994 Psychiatric orientation/consciousness Overall: oriented to person, place and time 01/14/2016 None Full Exam - General 1994 Psychiatric mood and affect Overall: normal mood and affect 01/14/2016 None Full Exam - General 1994 Constitutional general appearance Development: well developed 12/10/2015 None Full Exam - General 1994 Constitutional general appearance Development: appears stated age 0612/10/2015 None Full Exam - General 1994 Constitutional general appearance Hygiene/Attention to Grooming: good hygiene 12/10/2015 None Full Exam - General 1994 Respiratory auscultation Overall: breath sounds clear bilaterally 12/10/2015 None Full Exam - General 1994 Respiratory respiratory effort/rhythm Overall: no retractions 12/10/2015 None Full Exam - General 1994 Respiratory respiratory effort/rhythm Overall: normal rate 12/10/2015 None Full Exam - General 1994 Cardiovascular extremities Overall: no clubbing 12/10/2015 None Full Exam - General 1994 Cardiovascular auscultation of heart Overall: regular rate 12/10/2015 None Full Exam - General 1994 Cardiovascular auscultation of heart Overall: normal heart sounds 12/10/2015 None Full Exam - General 1994 Psychiatric orientation/consciousness Overall: oriented to person, place and time 12/10/2015 None Full Exam - General 1994 Psychiatric mood and affect Overall: normal mood and affect 12/10/2015 None Full Exam - General 1994 Constitutional general appearance Development: well developed 11/26/2015 None Full Exam - General 1994 Constitutional general appearance Development: appears stated age 0511/26/2015 None Full Exam - General 1994 Constitutional general appearance Hygiene/Attention to Grooming: good hygiene 11/26/2015 None Full Exam - General 1994 Eyes conjunctiva /eyelids Overall: conjunctiva clear 11/26/2015 None Full Exam - General 1994 Eyes conjunctiva /eyelids Overall: cornea clear 11/26/2015 None Full Exam - General 1994 Eyes conjunctiva /eyelids Overall: eyelids normal 11/26/2015 None Full Exam - General 1994 Eyes pupils and irises Overall: pupils equal, round, reactive to light and accomodation 11/26/2015 None Full Exam - General 1994 Ears/Nose/Throat otoscopic exam Overall: external auditory canals clear 11/26/2015 None Full Exam - General 1994 Ears/Nose/Throat otoscopic exam Overall: tympanic membranes clear 11/26/2015 None Full Exam - General 1994 Ears/Nose/Throat lips/teeth/gingiva Overall: benign lips 11/26/2015 None Full Exam - General 1994 Ears/Nose/Throat lips/teeth/gingiva Overall: normal dentition 11/26/2015 None Full Exam - General 1994 Ears/Nose/Throat oral cavity/pharynx/larynx Overall: oral mucosa clear 11/26/2015 None Full Exam - General 1994 Ears/Nose/Throat oral cavity/pharynx/larynx Overall: oropharyngeal mucosa clear 11/26/2015 None Full Exam - General 1994 Ears/Nose/Throat oral cavity/pharynx/larynx Overall: hypopharynx benign 11/26/2015 None Full Exam - General 1994 Ears/Nose/Throat oral cavity/pharynx/larynx Overall: no masses 11/26/2015 None Full Exam - General 1994 Respiratory auscultation Overall: breath sounds clear bilaterally 11/26/2015 None Full Exam - General 1994 Respiratory respiratory effort/rhythm Overall: no retractions 11/26/2015 None Full Exam - General 1994 Respiratory respiratory effort/rhythm Overall: normal rate 11/26/2015 None Full Exam - General 1994 Cardiovascular extremities Overall: no clubbing 11/26/2015 None Full Exam - General 1994 Cardiovascular auscultation of heart Overall: regular rate 11/26/2015 None Full Exam - General 1994 Cardiovascular auscultation of heart Overall: normal heart sounds 11/26/2015 None Full Exam - General 1994 Abdomen abdominal exam Overall: no tenderness 11/26/2015 None Full Exam - General 1994 Abdomen abdominal exam Overall: normal bowel sounds 11/26/2015 None Full Exam - General 1994 Lymphatic neck nodes Overall: anterior cervical chain benign 11/26/2015 None Full Exam - General 1994 Lymphatic neck nodes Overall: posterior cervical chain benign 11/26/2015 None Full Exam - General 1994 Musculoskeletal spine, ribs and pelvis Overall: spine benign 11/26/2015 None Full Exam - General 1994 Musculoskeletal spine, ribs and pelvis Overall: sacroiliac joint benign 11/26/2015 None Full Exam - General 1994 Musculoskeletal spine, ribs and pelvis Overall: good posture 11/26/2015 None Full Exam - General 1994 Musculoskeletal head and neck Overall: head atraumatic 11/26/2015 None Full Exam - General 1994 Musculoskeletal head and neck Overall: cervical spine benign 11/26/2015 None Full Exam - General 1994 Integument inspection of skin Overall: few scattered moles, no gross abnormalities 11/26/2015 None Full Exam - General 1994 Neurologic deep tendon reflexes Overall: deep tendon reflexes intact 11/26/2015 None Full Exam - General 1994 Neurologic cranial nerves Overall: crainial nerves 2 - 12 grossly intact 11/26/2015 None Full Exam - General 1994 Psychiatric orientation/consciousness Overall: oriented to person, place and time 11/26/2015 None Full Exam - General 1994 Psychiatric mood and affect Overall: normal mood and affect 11/26/2015 None Full Exam - General 1994 Constitutional general appearance Development: well developed 01/22/2015 None Full Exam - General 1994 Constitutional general appearance Development: appears stated age 0701/22/2015 None Full Exam - General 1994 Constitutional general appearance Hygiene/Attention to Grooming: good hygiene 01/22/2015 None Full Exam - General 1994 Eyes conjunctiva /eyelids Overall: conjunctiva clear 01/22/2015 None Full Exam - General 1994 Eyes conjunctiva /eyelids Overall: cornea clear 01/22/2015 None Full Exam - General 1994 Eyes conjunctiva /eyelids Overall: eyelids normal 01/22/2015 None Full Exam - General 1994 Eyes pupils and irises Overall: pupils equal, round, reactive to light and accomodation 01/22/2015 None Full Exam - General 1994 Ears/Nose/Throat otoscopic exam Overall: external auditory canals clear 01/22/2015 None Full Exam - General 1994 Ears/Nose/Throat otoscopic exam Overall: tympanic membranes clear 01/22/2015 None Full Exam - General 1994 Ears/Nose/Throat lips/teeth/gingiva Overall: benign lips 01/22/2015 None Full Exam - General 1994 Ears/Nose/Throat lips/teeth/gingiva Overall: normal dentition 01/22/2015 None Full Exam - General 1994 Ears/Nose/Throat oral cavity/pharynx/larynx Overall: oral mucosa clear 01/22/2015 None Full Exam - General 1994 Ears/Nose/Throat oral cavity/pharynx/larynx Overall: oropharyngeal mucosa clear 01/22/2015 None Full Exam - General 1994 Ears/Nose/Throat oral cavity/pharynx/larynx Overall: hypopharynx benign 01/22/2015 None Full Exam - General 1994 Ears/Nose/Throat oral cavity/pharynx/larynx Overall: no masses 01/22/2015 None Full Exam - General 1994 Respiratory auscultation Overall: breath sounds clear bilaterally 01/22/2015 None Full Exam - General 1994 Respiratory respiratory effort/rhythm Overall: no retractions 01/22/2015 None Full Exam - General 1994 Respiratory respiratory effort/rhythm Overall: normal rate 01/22/2015 None Full Exam - General 1994 Cardiovascular extremities Overall: no clubbing 01/22/2015 None Full Exam - General 1994 Cardiovascular auscultation of heart Overall: regular rate 01/22/2015 None Full Exam - General 1994 Cardiovascular auscultation of heart Overall: normal heart sounds 01/22/2015 None Full Exam - General 1994 Abdomen abdominal exam Overall: no tenderness 01/22/2015 None Full Exam - General 1994 Abdomen abdominal exam Overall: normal bowel sounds 01/22/2015 None Full Exam - General 1994 Lymphatic neck nodes Overall: anterior cervical chain benign 01/22/2015 None Full Exam - General 1994 Lymphatic neck nodes Overall: posterior cervical chain benign 01/22/2015 None Full Exam - General 1994 Musculoskeletal spine, ribs and pelvis Overall: spine benign 01/22/2015 None Full Exam - General 1994 Musculoskeletal spine, ribs and pelvis Overall: sacroiliac joint benign 01/22/2015 None Full Exam - General 1994 Musculoskeletal spine, ribs and pelvis Overall: good posture 01/22/2015 None Full Exam - General 1994 Musculoskeletal head and neck Overall: head atraumatic 01/22/2015 None Full Exam - General 1994 Musculoskeletal head and neck Overall: cervical spine benign 01/22/2015 None Full Exam - General 1994 Integument inspection of skin Overall: few scattered moles, no gross abnormalities 01/22/2015 None Full Exam - General 1994 Neurologic deep tendon reflexes Overall: deep tendon reflexes intact 01/22/2015 None Full Exam - General 1994 Neurologic cranial nerves Overall: crainial nerves 2 - 12 grossly intact 01/22/2015 None Full Exam - General 1994 Psychiatric orientation/consciousness Overall: oriented to person, place and time 01/22/2015 None Full Exam - General 1994 Psychiatric mood and affect Overall: normal mood and affect 01/22/2015 None Full Exam - General 1994 Constitutional general appearance Development: appears stated age 0511/11/2014 None Full Exam - General 1994 Constitutional general appearance Development: well developed 11/11/2014 None Full Exam - General 1994 Constitutional general appearance Hygiene/Attention to Grooming: good hygiene 11/11/2014 None Full Exam - General 1994 Eyes conjunctiva /eyelids Overall: conjunctiva clear 11/11/2014 None Full Exam - General 1994 Eyes conjunctiva /eyelids Overall: cornea clear 11/11/2014 None Full Exam - General 1994 Eyes conjunctiva /eyelids Overall: eyelids normal 11/11/2014 None Full Exam - General 1994 Eyes pupils and irises Overall: pupils equal, round, reactive to light and accomodation 11/11/2014 None Full Exam - General 1994 Ears/Nose/Throat otoscopic exam Overall: external auditory canals clear 11/11/2014 None Full Exam - General 1994 Ears/Nose/Throat otoscopic exam Overall: tympanic membranes clear 11/11/2014 None Full Exam - General 1994 Ears/Nose/Throat lips/teeth/gingiva Overall: benign lips 11/11/2014 None Full Exam - General 1994 Ears/Nose/Throat lips/teeth/gingiva Overall: normal dentition 11/11/2014 None Full Exam - General 1994 Ears/Nose/Throat oral cavity/pharynx/larynx Overall: hypopharynx benign 11/11/2014 None Full Exam - General 1994 Ears/Nose/Throat oral cavity/pharynx/larynx Overall: no masses 11/11/2014 None Full Exam - General 1994 Ears/Nose/Throat oral cavity/pharynx/larynx Overall: oral mucosa clear 11/11/2014 None Full Exam - General 1994 Ears/Nose/Throat oral cavity/pharynx/larynx Overall: oropharyngeal mucosa clear 11/11/2014 None Full Exam - General 1994 Respiratory auscultation Overall: breath sounds clear bilaterally 11/11/2014 None Full Exam - General 1994 Respiratory respiratory effort/rhythm Overall: no retractions 11/11/2014 None Full Exam - General 1994 Respiratory respiratory effort/rhythm Overall: normal rate 11/11/2014 None Full Exam - General 1994 Cardiovascular extremities Overall: no clubbing 11/11/2014 None Full Exam - General 1994 Cardiovascular auscultation of heart Overall: normal heart sounds 11/11/2014 None Full Exam - General 1994 Cardiovascular auscultation of heart Overall: regular rate 11/11/2014 None Full Exam - General 1994 Abdomen abdominal exam Overall: no tenderness 11/11/2014 None Full Exam - General 1994 Abdomen abdominal exam Overall: normal bowel sounds 11/11/2014 None Full Exam - General 1994 Integument inspection of skin Overall: few scattered moles, no gross abnormalities 11/11/2014 None Full Exam - General 1994 Neurologic deep tendon reflexes Overall: deep tendon reflexes intact 11/11/2014 None Full Exam - General 1994 Neurologic cranial nerves Overall: crainial nerves 2 - 12 grossly intact 11/11/2014 None Full Exam - General 1994 Psychiatric orientation/consciousness Overall: oriented to person, place and time 11/11/2014 None Full Exam - General 1994 Psychiatric mood and affect Overall: normal mood and affect 11/11/2014 None Full Exam - General 1994 Lymphatic neck nodes Overall: anterior cervical chain benign 11/11/2014 None Full Exam - General 1994 Lymphatic neck nodes Overall: posterior cervical chain benign 11/11/2014 None Full Exam - General 1994 Musculoskeletal spine, ribs and pelvis Overall: good posture 11/11/2014 None Full Exam - General 1994 Musculoskeletal spine, ribs and pelvis Overall: sacroiliac joint benign 11/11/2014 None Full Exam - General 1994 Musculoskeletal spine, ribs and pelvis Overall: spine benign 11/11/2014 None Full Exam - General 1994 Musculoskeletal head and neck Overall: cervical spine benign 11/11/2014 None Full Exam - General 1994 Musculoskeletal head and neck Overall: head atraumatic 11/11/2014 None Procedures Procedure Codes Date URINALYSIS NONAUTO W/O SCOPE CPT-4: 64225 06/13/2017 TOBACCO-USE [employer] 3-[address]: 561471148 CPT-4: G0436 11/26/2015 Vital Signs Date Vital 07/05/2018 Blood Pressure 1: 156/82 Code : 8480-6 Blood Pressure 1: 138/70 Code: 8480-6 BMI: 26.9 Code: 60879-8 Heart Rate 1: 76 bpm Height: 5'9" SpO2: 98% Weight: 182 lbs 06/13/2017 Blood Pressure 1: 136/68 Code : 8480-6 BMI: 25.8 Code : 94483-4 Heart Rate 1 : 80 bpm Height: 5'9" SpO2: 98% Weight: 175 lbs 10/12/2016 Blood Pressure 1: 154/80 Code : 8480-6 BMI: 25.5 Code : 89040-1 Heart Rate 1 : 83 bpm Height: 5'9" SpO2: 98% Weight: 173 lbs 06/23/2016 Blood Pressure 1: 132/78 Code : 8480-6 BMI: 24.4 Code : 26618-1 Heart Rate 1 : 64 bpm Height: 5'9" SpO2: 97% Weight: 165 lbs 02/25/2016 Blood Pressure 1: 134/72 Code : 8480-6 BMI: 24.4 Code : 95931-7 Heart Rate 1 : 75 bpm Height: 5'9" SpO2: 99% Weight: 165 lbs 01/14/2016 Blood Pressure 1: 140/68 Code : 8480-6 BMI: 24.8 Code : 99204-3 Heart Rate 1 : 76 bpm Height: 5'9" SpO2: 98% Weight: 168 lbs 12/10/2015 Blood Pressure 1: 134/68 Code : 8480-6 BMI: 24.8 Code : 42573-3 Heart Rate 1 : 87 bpm Height: 5'9" SpO2: 98% Weight: 168 lbs 11/26/2015 Blood Pressure 1: 160/78 Code : 8480-6 BMI: 26.1 Code : 89074-6 Heart Rate 1 : 71 bpm Height: 5'9" SpO2: 98% Weight: 177 lbs 01/22/2015 Blood Pressure 1: 138/72 Code : 8480-6 BMI: 27.3 Code : 73548-3 Heart Rate 1 : 77 bpm Height: 5'9" SpO2: 98% Weight: 185 lbs 11/11/2014 Blood Pressure 1: 132/80 Code : 8480-6 BMI: 27.2 Code : 96559-7 Heart Rate 1 : 72 bpm Height: 5'9" Weight: 184 lbs Functional Status No Functional Status data History of Present Illness Symptom Name Status Result Effective Date Notes Quality insulin dependent 07/05/2018 None Alleviating Factors insulin 07/05/2018 (lantus) Exacerbating Factors diet 07/05/2018 None Pertinent Findings Denies dizziness 07/05/2018 None Pertinent Findings Denies dyspnea 07/05/2018 None Pertinent Findings Denies nausea 07/05/2018 None Pertinent Findings Denies numbness 07/05/2018 None Pertinent Findings Denies tingling 07/05/2018 None Quality primary hypertension 07/05/2018 None Onset and Resolution ongoing 07/05/2018 None Onset of Symptom during adulthood 07/05/2018 None Blood Pressure Values not checking blood pressure at home 07/05/2018 None Alleviating Factors medication 07/05/2018 None Pertinent Findings Denies dizziness 07/05/2018 None Pertinent Findings Denies dyspnea 07/05/2018 None Pertinent Findings Denies edema 07/05/2018 None Onset and Resolution gradual in onset 07/05/2018 None Onset of Symptom during adulthood 07/05/2018 None Significant Medications statin 07/05/2018 None Alleviating Factors medication 07/05/2018 None Exacerbating Factors diet 07/05/2018 None Quality chronic 07/05 None Quality chronic 07/05 None Test results Pt checking blood glucose at home, see scanned readings 07/05/2018 None Glucose monitoring occasional glucose testing 07/05/2018 None diabetes mellitus Quality insulin dependent 06/13/2017 None diabetes mellitus Alleviating Factors insulin 06/13/2017 (lantus) diabetes mellitus Exacerbating Factors diet 06/13/2017 None diabetes mellitus Pertinent Findings Denies dizziness 06/13/2017 None diabetes mellitus Pertinent Findings Denies dyspnea 06/13/2017 None diabetes mellitus Pertinent Findings Denies nausea 06/13/2017 None diabetes mellitus Pertinent Findings Denies numbness 06/13/2017 None diabetes mellitus Pertinent Findings Denies tingling 06/13/2017 None hypertension Onset and Resolution ongoing 06/13/2017 None hypertension Onset of Symptom during adulthood 06/13/2017 None hypertension Blood Pressure Values not checking blood pressure at home 06/13/2017 None hypertension Alleviating Factors medication 06/13/2017 None hypertension Pertinent Findings Denies dizziness 06/13/2017 None hypertension Pertinent Findings Denies dyspnea 06/13/2017 None hypertension Pertinent Findings Denies edema 06/13/2017 None hyperlipidemia Onset and Resolution gradual in onset 06/13/2017 None hyperlipidemia Onset of Symptom during adulthood 06/13/2017 None hyperlipidemia Alleviating Factors medication 06/13/2017 None hyperlipidemia Exacerbating Factors diet 06/13/2017 None hypertension Quality primary hypertension 06/13/2017 None hyperlipidemia Significant Medications statin 06/13/2017 None diabetes mellitus Test results Pt checking blood glucose at home, see scanned readings 2016 None diabetes mellitus Glucose monitoring occasional glucose testing 06/13/2017 None diabetes mellitus Quality insulin dependent 10/12/2016 None diabetes mellitus Alleviating Factors diet 10/12/2016 None diabetes mellitus Alleviating Factors insulin 10/12/2016 Lantus diabetes mellitus Exacerbating Factors diet 10/12/2016 None diabetes mellitus Pertinent Findings Denies dizziness 10/12/2016 None diabetes mellitus Pertinent Findings Denies dyspnea 10/12/2016 None diabetes mellitus Pertinent Findings Denies nausea 10/12/2016 None diabetes mellitus Pertinent Findings Denies numbness 10/12/2016 None diabetes mellitus Pertinent Findings Denies tingling 10/12/2016 None hypertension Onset and Resolution ongoing 10/12/2016 None hypertension Onset of Symptom during adulthood 10/12/2016 None hypertension Blood Pressure Values not checking blood pressure at home 10/12/2016 None hypertension Alleviating Factors medication 10/12/2016 None hypertension Pertinent Findings Denies dizziness 10/12/2016 None hypertension Pertinent Findings Denies dyspnea 10/12/2016 None hypertension Pertinent Findings Denies edema 10/12/2016 None hyperlipidemia Onset and Resolution gradual in onset 10/12/2016 None hyperlipidemia Onset and Resolution ongoing 10/12/2016 None hyperlipidemia Onset of Symptom during adulthood 10/12/2016 None hyperlipidemia Alleviating Factors medication 10/12/2016 None hyperlipidemia Exacerbating Factors diet 10/12/2016 None diabetes mellitus Test results Pt checking blood glucose at home, see scanned readings 2016 None diabetes mellitus Glucose monitoring occasional glucose testing 10/12/2016 None hyperlipidemia Quality stable 10/12/2016 None diabetes mellitus Quality insulin dependent 06/23/2016 None diabetes mellitus Alleviating Factors diet 06/23/2016 None diabetes mellitus Alleviating Factors insulin 06/23/2016 Lantus diabetes mellitus Exacerbating Factors diet 06/23/2016 None diabetes mellitus Pertinent Findings Denies dizziness 06/23/2016 None diabetes mellitus Pertinent Findings Denies dyspnea 06/23/2016 None diabetes mellitus Pertinent Findings Denies nausea 06/23/2016 None diabetes mellitus Pertinent Findings Denies numbness 06/23/2016 None diabetes mellitus Pertinent Findings Denies tingling 06/23/2016 None hypertension Onset and Resolution ongoing 06/23/2016 None hypertension Onset of Symptom during adulthood 06/23/2016 None hypertension Blood Pressure Values not checking blood pressure at home 06/23/2016 None hypertension Alleviating Factors medication 06/23/2016 None hypertension Pertinent Findings Denies dizziness 06/23/2016 None hypertension Pertinent Findings Denies dyspnea 06/23/2016 None hypertension Pertinent Findings Denies edema 06/23/2016 None diabetes mellitus Quality insulin dependent 02/25/2016 None diabetes mellitus Alleviating Factors diet 02/25/2016 None diabetes mellitus Alleviating Factors insulin 02/25/2016 Lantus diabetes mellitus Exacerbating Factors diet 02/25/2016 None diabetes mellitus Pertinent Findings Denies dizziness 02/25/2016 None diabetes mellitus Pertinent Findings Denies dyspnea 02/25/2016 None diabetes mellitus Pertinent Findings Denies nausea 02/25/2016 None diabetes mellitus Pertinent Findings Denies numbness 02/25/2016 None diabetes mellitus Pertinent Findings Denies tingling 02/25/2016 None hypertension Onset and Resolution ongoing 02/25/2016 None hypertension Onset of Symptom during adulthood 02/25/2016 None hypertension Blood Pressure Values not checking blood pressure at home 02/25/2016 None hypertension Alleviating Factors medication 02/25/2016 None hypertension Pertinent Findings Denies dizziness 02/25/2016 None hypertension Pertinent Findings Denies dyspnea 02/25/2016 None hypertension Pertinent Findings Denies edema 02/25/2016 None diabetes mellitus Test results Pt checking blood glucose at home, see scanned readings 2015 None diabetes mellitus Glucose monitoring daily 02/25/2016 -one to two times per day diabetes mellitus Quality insulin dependent 01/14/2016 None diabetes mellitus Alleviating Factors diet 01/14/2016 None diabetes mellitus Alleviating Factors insulin 01/14/2016 Lantus diabetes mellitus Exacerbating Factors diet 01/14/2016 None diabetes mellitus Pertinent Findings Denies dizziness 01/14/2016 None diabetes mellitus Pertinent Findings Denies dyspnea 01/14/2016 None diabetes mellitus Pertinent Findings Denies nausea 01/14/2016 None diabetes mellitus Pertinent Findings Denies numbness 01/14/2016 None diabetes mellitus Pertinent Findings Denies tingling 01/14/2016 None hypertension Onset and Resolution ongoing 01/14/2016 None hypertension Onset of Symptom during adulthood 01/14/2016 None hypertension Blood Pressure Values not checking blood pressure at home 01/14/2016 None hypertension Alleviating Factors medication 01/14/2016 None hypertension Pertinent Findings Denies dizziness 01/14/2016 None hypertension Pertinent Findings Denies dyspnea 01/14/2016 None hypertension Pertinent Findings Denies edema 01/14/2016 None diabetes mellitus Quality insulin dependent 12/10/2015 None diabetes mellitus Alleviating Factors insulin 12/10/2015 Lantus diabetes mellitus Exacerbating Factors diet 12/10/2015 None diabetes mellitus Pertinent Findings Denies dizziness 12/10/2015 None diabetes mellitus Pertinent Findings Denies dyspnea 12/10/2015 None diabetes mellitus Pertinent Findings Denies nausea 12/10/2015 None diabetes mellitus Pertinent Findings Denies numbness 12/10/2015 None diabetes mellitus Pertinent Findings Denies tingling 12/10/2015 None hypertension Onset and Resolution ongoing 12/10/2015 None hypertension Onset of Symptom during adulthood 12/10/2015 None hypertension Blood Pressure Values not checking blood pressure at home 12/10/2015 None hypertension Alleviating Factors medication 12/10/2015 None hypertension Pertinent Findings Denies dizziness 12/10/2015 None hypertension Pertinent Findings Denies dyspnea 12/10/2015 None hypertension Pertinent Findings Denies edema 12/10/2015 None diabetes mellitus Test results Pt checking blood glucose at home, see scanned readings 2015 None diabetes mellitus Glucose monitoring occasional glucose testing 12/10/2015 None diabetes mellitus Alleviating Factors diet 12/10/2015 None diabetes mellitus Quality insulin dependent 11/26/2015 None diabetes mellitus Test results Pt not checking blood glucose readings at home 11/26/2015 None diabetes mellitus Glucose monitoring does not test 11/26/2015 None diabetes mellitus Alleviating Factors insulin 11/26/2015 Lantus diabetes mellitus Exacerbating Factors diet 11/26/2015 None diabetes mellitus Pertinent Findings Denies dizziness 11/26/2015 None diabetes mellitus Pertinent Findings Denies dyspnea 11/26/2015 None diabetes mellitus Pertinent Findings Denies nausea 11/26/2015 None diabetes mellitus Pertinent Findings Denies numbness 11/26/2015 None diabetes mellitus Pertinent Findings Denies tingling 11/26/2015 None hypertension Onset and Resolution ongoing 11/26/2015 None hypertension Onset of Symptom during adulthood 11/26/2015 None hypertension Blood Pressure Values not checking blood pressure at home 11/26/2015 None hypertension Alleviating Factors medication 11/26/2015 None hypertension Pertinent Findings Denies dizziness 11/26/2015 None hypertension Pertinent Findings Denies dyspnea 11/26/2015 None hypertension Pertinent Findings Denies edema 11/26/2015 None hyperlipidemia Onset and Resolution gradual in onset 11/26/2015 None hyperlipidemia Onset and Resolution ongoing 11/26/2015 None hyperlipidemia Onset of Symptom during adulthood 11/26/2015 None hyperlipidemia Alleviating Factors medication 11/26/2015 None hyperlipidemia Exacerbating Factors diet 11/26/2015 None diabetes mellitus Quality non-insulin dependent 01/22/2015 None diabetes mellitus Pertinent Findings Denies dizziness 01/22/2015 None diabetes mellitus Pertinent Findings Denies dyspnea 01/22/2015 None diabetes mellitus Pertinent Findings Denies numbness 01/22/2015 None hyperlipidemia Onset and Resolution ongoing 01/22/2015 None hyperlipidemia Pertinent Findings Denies edema 01/22/2015 None hyperlipidemia Pertinent Findings Denies nausea 01/22/2015 None blood pressure followup Quality chronic 01/22/2015 None blood pressure followup Onset and Resolution ongoing 01/22/2015 None blood pressure followup Blood Pressure Values not checking blood pressure at home 01/22/2015 None blood pressure followup Frequency of Episodes unchanged 01/22/2015 None blood pressure followup Triggers stress 01/22/2015 None blood pressure followup Alleviating Factors diet changes 01/22/2015 None blood pressure followup Alleviating Factors exercise 01/22/2015 None blood pressure followup Alleviating Factors medication 01/22/2015 None diabetes mellitus Onset of Symptom onset as an adult 01/22/2015 None diabetes mellitus Quality non-insulin dependent 11/11/2014 None diabetes mellitus Test results Pt checking blood glucose readings, did not bring results to clinic 11/11/2014 None diabetes mellitus Blood glucose levels greater than 120 11/11/2014 120-130 diabetes mellitus Glucose monitoring occasional glucose testing 11/11/2014 weekly diabetes mellitus Pertinent Findings Denies dizziness 11/11/2014 None diabetes mellitus Pertinent Findings Denies dyspnea 11/11/2014 None diabetes mellitus Pertinent Findings Denies numbness 11/11/2014 None hyperlipidemia Onset and Resolution ongoing 11/11/2014 None hyperlipidemia Pertinent Findings Denies edema 11/11/2014 None hyperlipidemia Pertinent Findings Denies nausea 11/11/2014 None blood pressure followup Alleviating Factors diet changes 11/11/2014 None blood pressure followup Alleviating Factors exercise 11/11/2014 None blood pressure followup Alleviating Factors medication 11/11/2014 None blood pressure followup Blood Pressure Values not checking blood pressure at home 11/11/2014 None blood pressure followup Frequency of Episodes unchanged 11/11/2014 None blood pressure followup Onset and Resolution ongoing 11/11/2014 None blood pressure followup Quality chronic 11/11/2014 None blood pressure followup Triggers stress 11/11/2014 None Advance Directives No Advance Directive data Encounters Encounter Performer Location Codes Date [id number]) [id number] EST. PATIENT, LEVEL IV Diagnosis: Essential (primary) hypertension[ICD10: I10] Diagnosis: Type 2 diabetes mellitus with hyperglycemia[ICD10: E11.65] Diagnosis: Mixed hyperlipidemia[ICD10: E78.2] Sammi Carrillo MD, [facility] CPT-4: 33509 07/05/2018 ([id number]) [id number] EST. PATIENT, LEVEL IV Diagnosis: Type 2 diabetes mellitus without complications[ICD10: E11.9] Diagnosis: Essential (primary) hypertension[ICD10: I10] Diagnosis: Mixed hyperlipidemia[ICD10: E78.2] Diagnosis: Dysuria[ICD10: R30.0] Sammi Carrillo MD, [facility] CPT-4: 49062 06/13/2017 ([id number]) 23757 EST. PATIENT, LEVEL IV Diagnosis: Essential (primary) hypertension[ICD10: I10] Diagnosis: Type 2 diabetes mellitus with hyperglycemia[ICD10: E11.65] Sammi Carrillo MD [facility] CPT-4: 94559 10/12/2016 ([id number]) 70160 EST. PATIENT, LEVEL IV Diagnosis: Type 2 diabetes mellitus without complications[ICD10: E11.9] Diagnosis: Essential (primary) hypertension[ICD10: I10] Sammi Carrillo MD [facility] CPT-4: 48025 06/23/2016 ([id number]) 20209 EST. PATIENT, LEVEL III Diagnosis: Type 2 diabetes mellitus without complications[ICD10: E11.9] DORETHA Castro MD CPT-4: 51171 02/25/2016 ([id number]) 63660 EST. PATIENT, LEVEL III Diagnosis: Type 2 diabetes mellitus without complications[ICD10: E11.9] Sammi Carrillo MD [facility] CPT-4: 20403 01/14/2016 ([id number]) 26841 EST. PATIENT, LEVEL III Diagnosis: Type 2 diabetes mellitus with hyperglycemia[ICD10: E11.65] Sammi Carrillo MD , [facility] CPT-4: 95743 12/10/2015 ([id number]) 30865 EST. PATIENT, LEVEL IV Diagnosis: Type 2 diabetes mellitus with hyperglycemia[ICD10: E11.65] Diagnosis: Essential (primary) hypertension[ICD10: I10] Sammi Carrillo MD, [facility] CPT-4: 98661 11/26/2015 ([id number]) 16033 EST. PATIENT, LEVEL IV Diagnosis: ESSENTIAL HYPERTENSION[ICD9: 401.9] Diagnosis: Diabetes mellitus out of control[ICD9: 250.02] Sammi Carrillo MD, [facility] CPT-4: 87346 01/22/2015 ([id number]) OFFICE VISIT, NEW - LEVEL 4 Diagnosis: ESSENTIAL HYPERTENSION[ICD9: 401.9] Diagnosis: Diabetes mellitus out of control[ICD9: 250.02] Diagnosis: HYPERLIPIDEMIA[ICD9: 272.4] Sammi Carrillo MD, [facility] CPT- 4: 37183 11/11/2014 Plan of Care Planned Activity Notes Codes Status Date Visit Plan: Hypertension - well controlled - continue with current medications, continue with no added salt diet. Pt has been encouraged to exercise daily. The pt has been advised to call the office if there are any acute concerns about change in blood pressure readings at home. Diabetes Mellitus - controlled - per recent FSBS reports. I have recommended for the patient to have follow up labs prior to the next office visit. The patient has been instructed to continue with current medications as previously directed, continue with regular FSBS monitoring to assure continued control of diabetes. Pt to call for any acute concerns, complaints, or if the blood glucose readings are starting to become less controlled. Hyperlipidemia - pt has been counseled about appropriate diet, exercise, and need for low fat food choices. I have discussed the need for the patient to take medications as prescribed. If the patient has negative side effects from the medication, they are to CALL the office and not abruptly discontinue the medication without discussion with a practitioner in the office. We will check labs in 3-6 months for follow up on the patient's chronic medical problem and to assure normal liver response to medications. 07/05/2018 Appointment: Sammi Carrillo WPtel: [address] [place], [place] [id number] (15 min) Moderate 07/05/2018 Patient Education: Patient Medication Summary Completed 07/05/2018 Patient Education: Diabetes Completed 07/05/2018 Patient Education: Cholesterol Management Completed 07/05/2018 Visit Plan: Diabetes Mellitus - uncertain of level of control - pt has very few FSBS readings from last office visit - check labs today. The patient has been instructed to continue with current medications as previously directed, continue with regular FSBS monitoring to assure continued control of diabetes. Pt to call for any acute concerns, complaints, or if the blood glucose readings are starting to become less controlled. We will send new medication orders pending the outcome of his Hgba1c. Hypertension - well controlled - continue with current medications, continue with no added salt diet. Pt has been encouraged to exercise daily. The pt has been advised to call the office if there are any acute concerns about change in blood pressure readings at home. Hyperlipidemia - pt has been counseled about appropriate diet , exercise, and need for low fat food choices. I have discussed the need for the patient to take medications as prescribed. If the patient has negative side effects from the medication, they are to CALL the office and not abruptly discontinue the medication without discussion with a practitioner in the office. We will check labs in 3-6 months for follow up on the patient's chronic medical problem and to assure normal liver response to medications. Dysuria - check ua - negative. 06/13/2017 Appointment: Sammi Carrillotel: [phone] [phone] [place] (15 min) Moderate 06/13/2017 Patient Education: Patient Medication Summary Completed 06/13/2017 Appointment: Sammi Carrillo WPtel: [phone] [phone] [place] (15 min) Moderate 02/09/2017 Visit Plan: Diabetes Mellitus - Uncontrolled - per recent FSBS reports. I have recommended for the patient to have follow up labs prior to the next office visit. The patient has been instructed to continue with current medications as previously directed, continue with regular FSBS monitoring to assure continued control of diabetes. Pt to call for any acute concerns, complaints, or if the blood glucose readings are starting to become less controlled. I have recommended for the patient to follow more strictly to the diabetic diet as discussed in clinic to allow for greater blood glucose control. Hypertension - well controlled - continue with current medications, continue with no added salt diet. Pt has been encouraged to exercise daily. The pt has been advised to call the office if there are any acute concerns about change in blood pressure readings at home. 10/12/2016 Appointment: Sammi Carrillo WPtel: [phone] [phone] [place] (15 min) Moderate 10/12/2016 Patient Education: Patient Medication Summary Completed 10/12/2016 Visit Plan: Diabetes Mellitus - controlled - per recent FSBS reports. I have recommended for the patient to have follow up labs prior to the next office visit. The patient has been instructed to continue with current medications as previously directed, continue with regular FSBS monitoring to assure continued control of diabetes. Pt to call for any acute concerns, complaints, or if the blood glucose readings are starting to become less controlled. Hypertension - well controlled - continue with current medications, continue with no added salt diet. Pt has been encouraged to exercise daily. The pt has been advised to call the office if there are any acute concerns about change in blood pressure readings at home. 06/23/2016 Appointment: Sammi Carrillol: [phone] [phone] (15 min) Moderate 06/23/2016 Patient Education: Patient Medication Summary Completed 06/23/2016 Visit Plan: Diabetes Mellitus - controlled - per recent FSBS reports. I have recommended for the patient to have follow up labs prior to the next office visit. The patient has been instructed to continue with current medications as previously directed, continue with regular FSBS monitoring to assure continued control of diabetes. Pt to call for any acute concerns, complaints, or if the blood glucose readings are starting to become less controlled. 02/25/2016 Appointment: Sammi Carrillo WPtel: [phone] [phone] (15 min) Moderate 02/25/2016 Patient Education: Patient Medication Summary Completed 02/25/2016 Visit Plan: DM - not yet optimally controlled - but it has been improving based on recent FSBS reports - recommended to continue with decrease in carbs, improved dietary control and improved fluid intake. 01/14/2016 [phone] ([facility] min) Moderate 01/14/2016 Patient Education: Patient Medication Summary Completed 01/14/2016 Visit Plan: Diabetes Mellitus - Uncontrolled - per recent FSBS reports. I have recommended for the patient to have follow up labs prior to the next office visit. The patient has been instructed to continue with current medications as previously directed, continue with regular FSBS monitoring to assure continued control of diabetes. Pt to call for any acute concerns, complaints, or if the blood glucose readings are starting to become less controlled. I have recommended for the patient to follow more strictly to the diabetic diet as discussed in clinic to allow for greater blood glucose control. 12/10/2015 Patient Education: Patient Medication Summary Completed 12/10/2015 Visit Plan: Diabetes Mellitus - Uncontrolled - per recent FSBS reports. I have recommended for the patient to have follow up labs prior to the next office visit. The patient has been instructed to continue with current medications as previously directed, continue with regular FSBS monitoring to assure continued control of diabetes. Pt to call for any acute concerns, complaints, or if the blood glucose readings are starting to become less controlled. I have recommended for the patient to follow more strictly to the diabetic diet as discussed in clinic to allow for greater blood glucose control. Hypertension - well controlled - continue with current medications, continue with no added salt diet. Pt has been encouraged to exercise daily. The pt has been advised to call the office if there are any acute concerns about change in blood pressure readings at home. 11/26/2015 Appointment: Sammi Carrillo WPtel: [phone] [phone] (15 min) Moderate 11/26/2015 Patient Education: Patient Medication Summary Completed 11/26/2015 Patient Education: Smoking and Tobacco Addiction Completed 11/26/2015 Patient Education: Hypertension Completed 11/26/2015 Patient Education: Patient Medication Summary Completed 11/20/2015 Appointment: Sammi Carrillo WPtel: [phone] [phone] (15 min) Moderate 03/05/2015 Visit Plan: Diabetes Mellitus - Uncontrolled - per recent FSBS reports. I have recommended for the patient to have follow up labs prior to the next office visit. The patient has been instructed to continue with current medications as previously directed, continue with regular FSBS monitoring to assure continued control of diabetes. Pt to call for any acute concerns, complaints, or if the blood glucose readings are starting to become less controlled. I have recommended for the patient to follow more strictly to the diabetic diet as discussed in clinic to allow for greater blood glucose control. Lantus dose increased. Hypertension - well controlled - continue with current medications, continue with no added salt diet. Pt has been encouraged to exercise daily. The pt has been advised to call the office if there are any acute concerns about change in blood pressure readings at home. 01/22/2015 Appointment: Sammi Carrillo [facility]Ptel[phone] [id number] [place] Follow up 01/22/2015 Patient Education: Patient Medication Summary Completed 01/22/2015 Patient Education: Hypertension Completed 01/22/2015 Visit Plan: Diabetes Mellitus - Uncontrolled - per recent FSBS reports. I have recommended for the patient to have follow up labs prior to the next office visit. The patient has been instructed to continue with current medications as previously directed, continue with regular FSBS monitoring to assure continued control of diabetes. Pt to call for any acute concerns, complaints, or if the blood glucose readings are starting to become less controlled. I have recommended for the patient to follow more strictly to the diabetic diet as discussed in clinic to allow for greater blood glucose control. Hypertension - well controlled - continue with current medications, continue with no added salt diet. Pt has been encouraged to exercise daily. The pt has been advised to call the office if there are any acute concerns about change in blood pressure readings at home. Hyperlipidemia - pt has been counseled about appropriate diet, exercise, and need for low fat food choices. I have discussed the need for the patient to take medications as prescribed. If the patient has negative side effects from the medication, they are to CALL the office and not abruptly discontinue the medication without discussion with a practitioner in the office. We will check labs in 3-6 months for follow up on the patient's chronic medical problem and to assure normal liver response to medications. 11/11/2014 Appointment: Sammi Carrillo [facility]Ptel[phone] [id number] [place] ([place] New Patient 11/11/2014 Patient Education: Patient Medication Summary Completed 11/11/2014 Patient Education: Hypertension Completed 11/11/2014 Instructions Comment increase lantus to 55 units daily call with blood glucose report in 2 weeks.. Diabetes Mellitus - Uncontrolled - per recent FSBS reports. I have recommended for the patient to have follow up labs prior to the next office visit. The patient has been instructed to continue with current medications as previously directed, continue with regular FSBS monitoring to assure continued control of diabetes. Pt to call for any acute concerns, complaints, or if the blood glucose readings are starting to become less controlled. I have recommended for the patient to follow more strictly to the diabetic diet as discussed in clinic to allow for greater blood glucose control. Hypertension - well controlled - continue with current medications, continue with no added salt diet. Pt has been encouraged to exercise daily. The pt has been advised to call the office if there are any acute concerns about change in blood pressure readings at home. . Diabetes Mellitus - controlled - per recent FSBS reports. I have recommended for the patient to have follow up labs prior to the next office visit. The patient has been instructed to continue with current medications as previously directed, continue with regular FSBS monitoring to assure continued control of diabetes. Pt to call for any acute concerns, complaints, or if the blood glucose readings are starting to become less controlled. Hypertension - well controlled - continue with current medications, continue with no added salt diet. Pt has been encouraged to exercise daily. The pt has been advised to call the office if there are any acute concerns about change in blood pressure readings at home. . Diabetes Mellitus - Uncontrolled - per recent FSBS reports. I have recommended for the patient to have follow up labs prior to the next office visit. The patient has been instructed to continue with current medications as previously directed, continue with regular FSBS monitoring to assure continued control of diabetes. Pt to call for any acute concerns, complaints, or if the blood glucose readings are starting to become less controlled. I have recommended for the patient to follow more strictly to the diabetic diet as discussed in clinic to allow for greater blood glucose control. Lantus dose increased. Hypertension - well controlled - continue with current medications, continue with no added salt diet. Pt has been encouraged to exercise daily. The pt has been advised to call the office if there are any acute concerns about change in blood pressure readings at home. get labs one week prior your appointment in 4 months . Diabetes Mellitus - controlled - per recent FSBS reports. I have recommended for the patient to have follow up labs prior to the next office visit. The patient has been instructed to continue with current medications as previously directed, continue with regular FSBS monitoring to assure continued control of diabetes. Pt to call for any acute concerns, complaints, or if the blood glucose readings are starting to become less controlled. Monitor your blood pressure at home and record. Bring in your readings to your next appointment, or as directed. Call for chest pain, shortness of breath, headaches, or other concerns. check blood glucose twice daily for two week make sure that the blood glucose readings are at least 2 hours after a meal or right before bedtime. bring the blood glucose log to dr carrillo's office for our review take the glyburide one pill TWICE daily . Diabetes Mellitus - Uncontrolled - per recent FSBS reports. I have recommended for the patient to have follow up labs prior to the next office visit. The patient has been instructed to continue with current medications as previously directed, continue with regular FSBS monitoring to assure continued control of diabetes. Pt to call for any acute concerns, complaints, or if the blood glucose readings are starting to become less controlled. I have recommended for the patient to follow more strictly to the diabetic diet as discussed in clinic to allow for greater blood glucose control. Hypertension - well controlled - continue with current medications, continue with no added salt diet. Pt has been encouraged to exercise daily. The pt has been advised to call the office if there are any acute concerns about change in blood pressure readings at home. Hyperlipidemia - pt has been counseled about appropriate diet, exercise, and need for low fat food choices. I have discussed the need for the patient to take medications as prescribed. If the patient has negative side effects from the medication, they are to CALL the office and not abruptly discontinue the medication without discussion with a practitioner in the office. We will check labs in 3-6 months for follow up on the patient's chronic medical problem and to assure normal liver response to medications. . Diabetes Mellitus - Uncontrolled - per recent FSBS reports. I have recommended for the patient to have follow up labs prior to the next office visit. The patient has been instructed to continue with current medications as previously directed, continue with regular FSBS monitoring to assure continued control of diabetes. Pt to call for any acute concerns, complaints, or if the blood glucose readings are starting to become less controlled. I have recommended for the patient to follow more strictly to the diabetic diet as discussed in clinic to allow for greater blood glucose control. Hypertension - well controlled - continue with current medications, continue with no added salt diet. Pt has been encouraged to exercise daily. The pt has been advised to call the office if there are any acute concerns about change in blood pressure readings at home. . Diabetes Mellitus - uncertain of level of control - pt has very few FSBS readings from last office visit - check labs today. The patient has been instructed to continue with current medications as previously directed, continue with regular FSBS monitoring to assure continued control of diabetes. Pt to call for any acute concerns, complaints, or if the blood glucose readings are starting to become less controlled. We will send new medication orders pending the outcome of his Hgba1c. Hypertension - well controlled - continue with current medications, continue with no added salt diet. Pt has been encouraged to exercise daily. The pt has been advised to call the office if there are any acute concerns about change in blood pressure readings at home. Hyperlipidemia - pt has been counseled about appropriate diet, exercise, and need for low fat food choices. I have discussed the need for the patient to take medications as prescribed. If the patient has negative side effects from the medication, they are to CALL the office and not abruptly discontinue the medication without discussion with a practitioner in the office. We will check labs in 3-6 months for follow up on the patient's chronic medical problem and to assure normal liver response to medications. Dysuria - check ua - negative. . DM - not yet optimally controlled - but it has been improving based on recent FSBS reports - recommended to continue with decrease in carbs, improved dietary control and improved fluid intake. . Diabetes Mellitus - Uncontrolled - per recent FSBS reports. I have recommended for the patient to have follow up labs prior to the next office visit. The patient has been instructed to continue with current medications as previously directed, continue with regular FSBS monitoring to assure continued control of diabetes. Pt to call for any acute concerns, complaints, or if the blood glucose readings are starting to become less controlled. I have recommended for the patient to follow more strictly to the diabetic diet as discussed in clinic to allow for greater blood glucose control. . Hypertension - well controlled - continue with current medications, continue with no added salt diet. Pt has been encouraged to exercise daily. The pt has been advised to call the office if there are any acute concerns about change in blood pressure readings at home. Diabetes Mellitus - controlled - per recent FSBS reports. I have recommended for the patient to have follow up labs prior to the next office visit. The patient has been instructed to continue with current medications as previously directed, continue with regular FSBS monitoring to assure continued control of diabetes. Pt to call for any acute concerns, complaints, or if the blood glucose readings are starting to become less controlled. Hyperlipidemia - pt has been counseled about appropriate diet, exercise, and need for low fat food choices. I have discussed the need for the patient to take medications as prescribed. If the patient has negative side effects from the medication, they are to CALL the office and not abruptly discontinue the medication without discussion with a practitioner in the office. We will check labs in 3-6 months for follow up on the patient's chronic medical problem and to assure normal liver response to medications.
--- OUTSIDE RECORDS SUMMARY | 2018-10-20 14:48 | XMS REPORT | CCD ---
Author Author Sammi Carrillo Organization Sammi Carrillo MD, [facility] Address [address] [place] [address] Phone Care Team Providers Care Nutrition Intern Name Role Phone PP Unavailable CCM Unavailable Summary Purpose Interface Exchange Insurance Providers Payer name Policy type / Coverage type Covered libertarian ID Effective Begin Date Effective End Date [id number] Commercial Insurance [id number] Unknown Unknown WPS Medicare Part B Commercial Insurance [id number] Unknown Unknown Family history Mother Diagnosis Age At Onset Hypertension Unknown Father Diagnosis Age At Onset Cancer Unknown Social History Social History Element Codes Description Effective Dates Tobacco history SNOMED CT: 138827769 Currently uses smokeless tobacco Chews 11/26/2015 Frequency of drinks SNOMED CT: 973831685 14 drinks per week About 2 beers per night- More on Fridays11/26/2015 Marital status Unknown Myah 11/11/2014 Number of children Unknown 3 11/11/[address]: 235408 Currently drinks alcohol beer 11/11/2014 Allergies, Adverse [...] 100 unit/mL (3 mL) subcutaneous pen RxNorm: 802086 INJECT 30 UNITS UNDER THE SKIN TWO TIMES A DAY 08/0104/27/2019 Active Lantus Solostar U-100 Insulin 100 unit/mL (3 mL) subcutaneous pen RxNorm: 806937 Unit(s) INJECT 35 UNITS UNDER THE SKIN TWO TIMES A DAY 07/10/2018 07/31/2018 Inactive Updated script atorvastatin 40 mg tablet RxNorm: 220124 TAKE ONE TABLET BY MOUTH DAILY 06/15/2018 12/11/2018 Active Lantus Solostar U-100 Insulin 100 unit/mL (3 mL) subcutaneous pen RxNorm: 686650 INJECT 30 UNITS UNDER THE SKIN TWO TIMES A DAY 05/0407/09/2018 Inactive Lantus Solostar U-100 Insulin 100 unit/mL (3 mL) subcutaneous pen RxNorm: 725540 INJECT 30 UNITS UNDER THE SKIN TWO TIMES A DAY 01/2004/29/2018 Inactive atorvastatin 40 mg tablet RxNorm: 289810 TAKE ONE TABLET BY MOUTH DAILY 12/12/2017 06/09/2018 Inactive Lantus Solostar U-100 Insulin 100 unit/mL (3 mL) subcutaneous pen RxNorm: 582405 INJECT 30 UNITS UNDER THE SKIN TWO TIMES A DAY 11/0701/19/2018 Inactive enalapril maleate 10 mg tablet RxNorm: 546972 1 Tablet(s) PO daily TAKE ONE TABLET BY MOUTH DAILY 10/11/20172018 Active enalapril maleate 10 mg tablet RxNorm: 285925 TAKE ONE TABLET BY MOUTH DAILY 07/11/2017 10/10/2017 Inactive enalapril maleate 10 mg tablet RxNorm: 157868 1 Tablet(s) PO daily TAKE ONE TABLET BY MOUTH DAILY 07/11/20172017 Inactive Lantus Solostar 100 unit/mL (3 mL) subcutaneous insulin pen RxNorm: 695469 INJECT 55 UNITS UNDER THE SKIN DAILY 07/05/2017 07/09/2018 Inactive Request already responded to by other means (e.g. phone or fax) OneTouch Verio strips RxNorm: USE TO TEST BLOOD SUGAR DAILY 11/06/2017 Inactive Lantus Solostar U-100 Insulin 100 unit/mL (3 mL) subcutaneous pen RxNorm: 796920 30 Unit(s) SQ BID 06/28/201707/2017 Inactive Lantus Solostar 100 unit/mL (3 mL) subcutaneous insulin pen RxNorm: 711357 30 Unit(s) BID 06/14/2017 06/17/2017 Inactive Lantus Solostar 100 unit/mL (3 mL) subcutaneous insulin pen RxNorm: 511680 INJECT 55 UNITS UNDER THE SKIN DAILY 03/09/2017 06/13/2017 Inactive enalapril maleate 10 mg tablet RxNorm: 350199 TAKE ONE TABLET BY MOUTH DAILY 12/31/2016 06/28/2017 Inactive atorvastatin 40 mg tablet RxNorm: 191668 TAKE ONE TABLET BY MOUTH DAILY 11/19/2016 11/13/2017 Inactive Lantus Solostar 100 unit/mL (3 mL) subcutaneous insulin pen RxNorm: 555439 55 Unit(s) daily 10/12/2016 03/08/2017 Inactive Lantus Solostar 100 unit/mL (3 mL) subcutaneous insulin pen RxNorm: 501917 INJECT 40 UNITS UNDER THE SKIN EVERY EVENING 07/22/2016 10/11/2016 Inactive enalapril maleate 10 mg tablet RxNorm: 872789 TAKE ONE TABLET BY MOUTH DAILY 03/23/2016 12/17/2016 Inactive Lantus Solostar 100 unit/mL (3 mL) subcutaneous insulin pen RxNorm: 768554 40 Unit(s) SQ QPM 01/14/2016 07/21/2016 Inactive atorvastatin 40 mg tablet RxNorm: 317957 1 Tablet(s) PO daily 11/20/2015 11/13/2016 Inactive Lantus Solostar 100 unit/mL (3 mL) subcutaneous insulin pen RxNorm: 900285 40 Unit(s) SQ QPM 01/22/2015 01/13/2016 Inactive please use for next fill 90 day supply OneTouch Verio strips RxNorm: 1 test Miscellaneous TID as needed 01/22/2015 06/27/2017 Inactive BD Pen Mini subcutaneous RxNorm: 1 SQ daily 01/21/2015 No Stop Date Active needles to fit lantus pen Lantus Solostar 100 unit/mL (3 mL) subcutaneous insulin pen RxNorm: 148588 35 u x 3 days then 40 u daily there after Unit(s) SQ QPM 201401/21/2015 Inactive please use for next fill 90 day supply glyburide 5 mg tablet RxNorm: 637709 1 Tablet(s) PO BID 201401/17/2015 Inactive enalapril maleate 10 mg tablet RxNorm: 815007 1 Tablet(s) PO daily 11/11/2014 11/10/2014 Inactive atorvastatin 40 mg tablet RxNorm: 083861 1 Tablet(s) PO daily 11/11/2014 11/10/2014 Inactive Lantus Solostar 100 unit/mL (3 mL) subcutaneous insulin pen RxNorm: 282022 30 Unit(s) SQ QPM 11/11/2014 01/20/2015 Inactive atorvastatin 40 mg tablet RxNorm: 852556 1 Tablet(s) PO daily 11/11/2014 11/05/2015 Inactive enalapril maleate 10 mg tablet RxNorm: 055960 1 Tablet(s) PO daily 11/11/2014 11/05/2015 Inactive BD Pen Mini subcutaneous RxNorm: 1 SQ daily No Start Date 01/20/2015 Inactive needles to fit lantus pen glyburide 5 mg tablet RxNorm: 862310 1 Tablet(s) PO daily No Start Date 11/10/2014 Inactive Medication Administered No Medication Administered data Immunizations No Immunization data Assessments Condition Codes Effective Dates Essential (primary) hypertension ICD-10: I10 ICD-9: 401.1 07/05/2018 Mixed hyperlipidemia ICD-10: E78.2 ICD-9: 272.2 07/05/2018 Type 2 diabetes mellitus with hyperglycemia ICD-10: E11.65 ICD-9: 250.02 07/05/2018 Type 2 diabetes mellitus without complications ICD-10: E11.9 ICD-9: 250.00 06/13/2017 Dysuria ICD-10: R30.0 ICD-9: 788.1 06/13/2017 Essential (primary) hypertension ICD-10: I10 ICD-9: 401.9 11/26/2015 Hyperlipidemia, unspecified ICD-10: E78.5 ICD-9: 272.4 11/20/2015 Diabetes mellitus out of control ICD-9: 250.02 01/22/2015 ESSENTIAL HYPERTENSION ICD-9: 401.9 01/22 HYPERLIPIDEMIA ICD-9: 272.4 11/11/2014 Reason For Visit [...] Ord30 C/HDL 3.2 Ratio 07/06/2018 Comp Metabolic Ydm991 NA 140 mEq/L 07/06/2018 Comp Metabolic Joc789 K 4.4 mEq/L 07/06/2018 Comp Metabolic Vwi643 CL 103 mEq/L 07/06/2018 Comp Metabolic Snm557 CO2 31.0 mEq/L 07/06/2018 Comp Metabolic Cpr503 ANION GAP 10 07/06/2018 Comp Metabolic Xgf905 GLUCOSE 151 mg/dL 07/06/2018 Comp Metabolic Yka102 Creat 0.8 mg/dL 07/06/2018 Comp Metabolic Vce326 eGFR 105 ml/min/1.73m2 07/06/2018 Comp Metabolic Yxu539 BUN 10 mg/dL 07/06/2018 Comp Metabolic Xqi351 B/C Ratio 12.8 Ratio 07/06/2018 Comp Metabolic Bqh419 CALCIUM 8.8 mg/dL 07/06/2018 Comp Metabolic Ebr864 ALK PHOS 87 U/L 07/06/2018 Comp Metabolic Gnz629 AST(SGOT) 16 U/L 07/06/2018 Comp Metabolic Ecb403 ALT(SGPT) 23 U/L 07/06/2018 Comp Metabolic Zem653 BILI T 1.0 mg/dL 07/06/2018 Comp Metabolic Mye113 ALBUMIN 4.1 g/dL 07/06/2018 Comp Metabolic Oek560 TPRO 6.4 g/dL 07/06/2018 Comp Metabolic Wwu174 GLOB 2.3 g/dL 07/06/2018 Comp Metabolic Psi901 A/G Ratio 1.8 Ratio 07/06/2018 Comp Metabolic Wlk094 Osmo 281 mOsmo 07/06/2018 Cbc With Differential [...] 30.4 pg 07/06/2018 Cbc With Differential Ord2 Twiggs% 8.8 % 07/06/2018 Cbc With Differential Ord2 [...] 2.00 K/ul 07/06/2018 Cbc With Differential Ord2 [place] ABS# 0.7 K/ul 07/06/2018 Cbc With Differential Ord2 Eos ABS# 0.1 K/ul 07/06/2018 Cbc With Differential Ord2 Baso ABS# 0.0 K/ul 07/06/2018 Tsh Ord6 TSH (3rd IS) 2.07 uIU/mL 07/06/2018 Total Psa Ord10 PSA 1.18 ng/mL 07/06/2018 %Hba1C Cyb024 % HbA1c 37052-9 7.9 % 07/06/2018 %Hba1C Yvh993 Gluc Ave 180 mg/dL 07/06/2018 Lipid Ord30 CHOL 138 mg/dL 06/13/2017 Lipid Ord30 HDL 58.0 mg/dl 06/13/2017 Lipid Ord30 TRIG 83 mg/dL 06/13/2017 Lipid Ord30 LDL 63 mg/dL 06/13/2017 Lipid Ord30 C/HDL 2.4 Ratio 06/13/2017 Comp Metabolic Jom443 NA 140 mEq/L 06/13/2017 Comp Metabolic Ljg085 K 4.6 mEq/L 06/13/2017 Comp Metabolic Rqd948 CL 105 mEq/L 06/13/2017 Comp Metabolic Gch485 CO2 28.0 mEq/L 06/13/2017 Comp Metabolic Cll157 ANION GAP 12 06/13/2017 Comp Metabolic Zzz811 GLUCOSE 126 mg/dL 06/13/2017 Comp Metabolic Yqk046 Creat 0.8 mg/dL 06/13/2017 Comp Metabolic Cyy661 eGFR 104 ml/min/1.73m2 06/13/2017 Comp Metabolic Zzk979 BUN 14 mg/dL 06/13/2017 Comp Metabolic Nvz879 B/C Ratio 17.7 Ratio 06/13/2017 Comp Metabolic Jrg552 CALCIUM 9.4 mg/dL 06/13/2017 Comp Metabolic Pgh382 ALK PHOS 74 U/L 06/13/2017 Comp Metabolic Xvd534 AST(SGOT) 19 U/L 06/13/2017 Comp Metabolic Xeq340 ALT(SGPT) 22 U/L 06/13/2017 Comp Metabolic Jec478 BILI T 1.2 mg/dL 06/13/2017 Comp Metabolic Kup980 ALBUMIN 4.5 g/dL 06/13/2017 Comp Metabolic Rvo933 TPRO 6.6 g/dL 06/13/2017 Comp Metabolic Mqy060 GLOB 2.1 g/dL 06/13/2017 Comp Metabolic Nno164 A/G Ratio 2.1 Ratio 06/13/2017 Comp Metabolic Zsk474 Osmo 281 mOsmo 06/13/2017 %Hba1C Hmc869 % HbA1c 30986-2 7.6 % 06/13/2017 %Hba1C Lbb604 Gluc Ave 171 mg/dL 06/13/2017 Cbc With Differential Ord2 WBC 8.36 K/ul 06/13/2017 Cbc With Differential Ord2 RBC 4.60 M/ul 06/13/2017 Cbc With Differential Ord2 HGB 14.2 g/dl 06/13/2017 Cbc With Differential Ord2 HCT 41.6 % 06/13/2017 Cbc With Differential Ord2 Neut% 68.1 % 06/13/2017 Cbc With Differential Ord2 MCV 90.4 fl 06/13/2017 Cbc With Differential Ord2 Lymph% 21.7 % 06/13/2017 Cbc With Differential Ord2 Twiggs% 9.1 % 06/13/2017 Cbc With Differential Ord2 MCH 30.9 pg 06/13/2017 Cbc With Differential Ord2 Eos% 0.7 % 06/13/2017 Cbc With Differential Ord2 MCHC 34.1 pg 06/13/2017 Cbc With Differential Ord2 PLT 230 K/ul 06/13/2017 Cbc With Differential Ord2 Baso% 0.4 % 06/13/2017 Cbc With Differential Ord2 Neut ABS# 5.70 K/ul 06/13/2017 Cbc With Differential Ord2 RDW 13.8 % 06/13/2017 Cbc With Differential Ord2 Lymph ABS# 1.81 K/ul 06/13/2017 Cbc With Differential Ord2 [place] ABS# 0.8 K/ul 06/13/2017 Cbc With Differential Ord2 Eos ABS# 0.1 K/ul 06/13/2017 Cbc With Differential Ord2 Baso ABS# 0.0 K/ul 06/13/2017 Urinalysis Ord28 U-Color Yellow 06/13/2017 Urinalysis [...] U-VOL VOLUME SUFFICIENT (10mL) 06/13/2017 Urinalysis Ord28 U-Com Urine saved if culture needed (specimen acceptable for 48 hours from collection if refrigerated) 06/13/2017 Urinalysis Ord28 U-Yeast NEGATIVE 06/13/2017 Microalbumin Adi941 MicroAlb <0.7 mg/dL 06/13/2017 %Hba1C Yuf799 % HbA1c 39791-7 7.2 % 09/14/2016 %Hba1C Xvr559 Gluc Ave 160 mg/dL 09/14/2016 Lipid Ord30 CHOL 133 mg/dL 09/14/2016 Lipid Ord30 HDL 66.0 mg/dl 09/14/2016 Lipid Ord30 TRIG 50 mg/dL 09/14/2016 Lipid Ord30 LDL 57 mg/dL 09/14/2016 Lipid Ord30 C/HDL 2.0 Ratio 09/14/2016 Cbc With Differential Ord2 WBC 6.67 [...] 31.4 pg 09/14/2016 Cbc With Differential Ord2 [place]% 8.5 % 09/14/2016 Cbc With Differential Ord2 MCHC 34.2 pg 09/14/2016 Cbc With Differential Ord2 Eos% 0.6 % 09/14/2016 Cbc With Differential Ord2 Baso% 0.3 % 09/14/2016 Cbc With Differential Ord2 PLT 192 K/ul 09/14/2016 Cbc With Differential Ord2 RDW 14.3 % 09/14/2016 Cbc With Differential Ord2 Neut ABS# 4.45 K/ul 09/14/2016 Cbc With Differential Ord2 Lymph ABS# 1.59 K/ul 09/14/2016 Cbc With Differential Ord2 [place] ABS# 0.6 K/ul 09/14/2016 Cbc With Differential Ord2 Eos ABS# 0.0 K/ul 09/14/2016 Cbc With Differential Ord2 Baso ABS# 0.0 K/ul 09/14/2016 Comp Metabolic Faz577 NA 138 mEq/L 09/14/2016 Comp Metabolic Jlo984 K 4.5 mEq/L 09/14/2016 Comp Metabolic Cgz603 CL 103 mEq/L 09/14/2016 Comp Metabolic Fxq129 CO2 29.0 mEq/L 09/14/2016 Comp Metabolic Cta534 ANION GAP 11 09/14/2016 Comp Metabolic Thc358 GLUCOSE 234 mg/dL 09/14/2016 Comp Metabolic Srp651 Creat 0.9 mg/dL 09/14/2016 Comp Metabolic Cku075 eGFR 86 ml/min/1.73m2 09/14/2016 Comp Metabolic Tfs734 BUN 16 mg/dL 09/14/2016 Comp Metabolic Rqy541 B/C Ratio 17.2 Ratio 09/14/2016 Comp Metabolic Scc603 CALCIUM 9.0 mg/dL 09/14/2016 Comp Metabolic Fvm132 ALK PHOS 69 U/L 09/14/2016 Comp Metabolic Wpb806 AST(SGOT) 21 U/L 09/14/2016 Comp Metabolic Qal169 ALT(SGPT) 26 U/L 09/14/2016 Comp Metabolic Hok842 BILI T 1.1 mg/dL 09/14/2016 Comp Metabolic Xwg114 ALBUMIN 4.2 g/dL 09/14/2016 Comp Metabolic Eqq110 TPRO 6.2 g/dL 09/14/2016 Comp Metabolic Ndl057 GLOB 2.0 g/dL 09/14/2016 Comp Metabolic Uux511 A/G Ratio 2.1 Ratio 09/14/2016 Comp Metabolic Lbc214 Osmo 284 mOsmo 09/14/2016 Tsh Ord6 hTSH II 2.04 uIU/mL 09/14/2016 %Hba1C Fdn829 % HbA1c 07354-5 7.3 % 02/23/2016 %Hba1C Pus831 Gluc Ave 163 mg/dL 02/23/2016 %Hba1C Slq800 % HbA1c 68895-7 10.2 % 11/24/2015 %Hba1C Foy588 Gluc Ave 246 mg/dL 11/24/2015 Lipid Ord30 CHOL 137 mg/dL 11/24/2015 Lipid Ord30 HDL 63.0 mg/dl 11/24/2015 Lipid Ord30 TRIG 63 mg/dL 11/24/2015 Lipid Ord30 LDL 61 mg/dL 11/24/2015 Lipid Ord30 C/HDL 2.2 Ratio 11/24/2015 Tsh Ord6 hTSH II 1.40 uIU/mL 11/24/2015 Cbc With Differential Ord2 WBC 7.78 K/ul 11/24/2015 Cbc With Differential Ord2 RBC 4.70 M/ul 11/24/2015 Cbc With Differential Ord2 HGB 14.5 g/dl 11/24/2015 Cbc With Differential Ord2 HCT 42.7 % 11/24/2015 Cbc With Differential Ord2 Neut% 72.0 % 11/24/2015 Cbc With Differential Ord2 MCV 90.9 fl 11/24/2015 Cbc With Differential Ord2 Lymph% 14.4 % 11/24/2015 Cbc With Differential Ord2 [place]% 12.1 % 11/24/2015 Cbc With Differential Ord2 MCH 30.9 pg 11/24/2015 Cbc With Differential Ord2 Eos% 1.2 % 11/24/2015 Cbc With Differential Ord2 MCHC 34.0 pg 11/24/2015 Cbc With Differential Ord2 PLT 216 K/ul 11/24/2015 Cbc With Differential Ord2 Baso% 0.3 % 11/24/2015 Cbc With Differential Ord2 RDW 13.6 % 11/24/2015 Cbc With Differential Ord2 Neut ABS# 5.61 K/ul 11/24/2015 Cbc With Differential Ord2 Lymph ABS# 1.12 K/ul 11/24/2015 Cbc With Differential Ord2 [place] ABS# 0.9 K/ul 11/24/2015 Cbc With Differential Ord2 Eos ABS# 0.1 K/ul 11/24/2015 Cbc With Differential Ord2 Baso ABS# 0.0 K/ul 11/24/2015 Cbc With Differential Ord2 New Analyzer Notice Please note new ref ranges starting 07-16-2015 due to implemntation of new five part differential hematolgy analyzer. 11/24/2015 Comp Metabolic Noj976 NA 137 mEq/L 11/24/2015 Comp Metabolic Euf750 K 4.1 mEq/L 11/24/2015 Comp Metabolic Idq752 CL 102 mEq/L 11/24/2015 Comp Metabolic Qdk479 CO2 28.0 mEq/L 11/24/2015 Comp Metabolic Zcm412 ANION GAP 11 11/24/2015 Comp Metabolic Ico144 GLUCOSE 102 mg/dL 11/24/2015 Comp Metabolic Hzx063 Creat 0.8 mg/dL 11/24/2015 Comp Metabolic Ibo420 eGFR 98 ml/min/1.73m2 11/24/2015 Comp Metabolic Mim147 BUN 17 mg/dL 11/24/2015 Comp Metabolic Goo647 B/C Ratio 20.5 Ratio 11/24/2015 Comp Metabolic Zhu552 CALCIUM 8.8 mg/dL 11/24/2015 Comp Metabolic Ffb878 ALK PHOS 61 U/L 11/24/2015 Comp Metabolic Awe611 AST(SGOT) 23 U/L 11/24/2015 Comp Metabolic Wmi217 ALT(SGPT) 24 U/L 11/24/2015 Comp Metabolic Qzm133 BILI T 1.1 mg/dL 11/24/2015 Comp Metabolic Rhm667 ALBUMIN 4.0 g/dL 11/24/2015 Comp Metabolic Nmx607 TPRO 6.2 g/dL 11/24/2015 Comp Metabolic Fkh126 GLOB 2.2 g/dL 11/24/2015 Comp Metabolic Wfw135 A/G Ratio 1.8 Ratio 11/24/2015 Comp Metabolic Oag714 Osmo 276 mOsmo 11/24/2015 Comp Metabolic Eat629 NA 140 mEq/L 01/17/2015 Comp Metabolic Hpw227 K 4.3 mEq/L 01/17/2015 Comp Metabolic Vjc525 CL 104 mEq/L 01/17/2015 Comp Metabolic Kri973 CO2 27.0 mEq/L 01/17/2015 Comp Metabolic Mcg373 ANION GAP 13 01/17/2015 Comp Metabolic Bpa908 GLUCOSE 146 mg/dL 01/17/2015 Comp Metabolic Wtn768 Creat 0.8 mg/dL 01/17/2015 Comp Metabolic Qwk803 eGFR 97 ml/min/1.73m2 01/17/2015 Comp Metabolic Hoo880 BUN 14 mg/dL 01/17/2015 Comp Metabolic Crx078 B/C Ratio 16.7 Ratio 01/17/2015 Comp Metabolic Qks779 CALCIUM 9.5 mg/dL 01/17/2015 Comp Metabolic Ocy985 ALK PHOS 70 U/L 01/17/2015 Comp Metabolic Tra888 AST(SGOT) 19 U/L 01/17/2015 Comp Metabolic Tcl786 ALT(SGPT) 27 U/L 01/17/2015 Comp Metabolic Cmk573 BILI T 1.3 mg/dL 01/17/2015 Comp Metabolic Xil322 ALBUMIN 4.3 g/dL 01/17/2015 Comp Metabolic Mor942 TPRO 6.7 g/dL 01/17/2015 Comp Metabolic Vpx626 GLOB 2.4 g/dL 01/17/2015 Comp Metabolic Joa055 A/G Ratio 1.8 Ratio 01/17/2015 Comp Metabolic Zvq861 Osmo 283 mOsmo 01/17/2015 Lipid Ord30 CHOL 131 mg/dL 01/17/2015 Lipid Ord30 HDL 58.0 mg/dl 01/17/2015 Lipid Ord30 TRIG 61 mg/dL 01/17/2015 Lipid Ord30 LDL 61 mg/dL 01/17/2015 Lipid Ord30 C/HDL 2.3 Ratio 01/17/2015 Tsh Ord6 hTSH II 1.88 uIU/mL 01/17/2015 Cbc With Differential Ord2 WBC 7.7 [...] With Differential Ord2 RDW 14.0 % 01/17/2015 %Hba1C Niv237 % HbA1c 54688-7 8.8 % 01/17/2015 %Hba1C Ows759 Gluc Ave 206 mg/dL 01/17/2015 Review of [...] Codes Date URINALYSIS NONAUTO W/O SCOPE CPT-4: 73230 06/13/2017 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-[address]: 812737121 CPT-4: G0436 11/26/2015 Vital Signs Date Vital 07/05/2018 Blood Pressure 1: 156/82 Code : 8480-6 Blood Pressure 1: 138/70 Code: 8480-6 BMI: 26.9 Code: 24177-2 Heart Rate 1: 76 bpm Height: 5'9" SpO2: 98% Weight: 182 lbs 06/13/2017 Blood Pressure 1: 136/68 Code : 8480-6 BMI: 25.8 Code : 07804-7 Heart Rate 1 : 80 bpm Height: 5'9" SpO2: 98% Weight: 175 lbs 10/12/2016 Blood Pressure 1: 154/80 Code : 8480-6 BMI: 25.5 Code : 99807-8 Heart Rate 1 : 83 bpm Height: 5'9" SpO2: 98% Weight: 173 lbs 06/23/2016 Blood Pressure 1: 132/78 Code : 8480-6 BMI: 24.4 Code : 83386-4 Heart Rate 1 : 64 bpm Height: 5'9" SpO2: 97% Weight: 165 lbs 02/25/2016 Blood Pressure 1: 134/72 Code : 8480-6 BMI: 24.4 Code : 62576-0 Heart Rate 1 : 75 bpm Height: 5'9" SpO2: 99% Weight: 165 lbs 01/14/2016 Blood Pressure 1: 140/68 Code : 8480-6 BMI: 24.8 Code : 28448-0 Heart Rate 1 : 76 bpm Height: 5'9" SpO2: 98% Weight: 168 lbs 12/10/2015 Blood Pressure 1: 134/68 Code : 8480-6 BMI: 24.8 Code : 10081-1 Heart Rate 1 : 87 bpm Height: 5'9" SpO2: 98% Weight: 168 lbs 11/26/2015 Blood Pressure 1: 160/78 Code : 8480-6 BMI: 26.1 Code : 77727-4 Heart Rate 1 : 71 bpm Height: 5'9" SpO2: 98% Weight: 177 lbs 01/22/2015 Blood Pressure 1: 138/72 Code : 8480-6 BMI: 27.3 Code : 35581-1 Heart Rate 1 : 77 bpm Height: 5'9" SpO2: 98% Weight: 185 lbs 11/11/2014 Blood Pressure 1: 132/80 Code : 8480-6 BMI: 27.2 Code : 49670-5 Heart Rate 1 : 72 bpm Height: [...] data Encounters Encounter Performer Location Codes Date ([id number]) 33174 EST. PATIENT, LEVEL IV Diagnosis: Essential (primary) hypertension[ICD10: I10] Diagnosis: Type 2 diabetes mellitus with hyperglycemia[ICD10: E11.65] Diagnosis: Mixed hyperlipidemia[ICD10: E78.2] Sammi Carrillo MD, [facility] CPT-4: 51089 07/05/2018 ([id number]) 04806 EST. PATIENT, LEVEL IV Diagnosis: Type 2 diabetes mellitus without complications[ICD10: E11.9] Diagnosis: Essential (primary) hypertension[ICD10: I10] Diagnosis: Mixed hyperlipidemia[ICD10: E78.2] Diagnosis: Dysuria[ICD10: R30.0] [facility] CPT-4: 17251 06/13/2017 ([id number]) 78141 EST. PATIENT, LEVEL IV Diagnosis: Essential (primary) hypertension[ICD10: I10] Diagnosis: Type 2 diabetes mellitus with hyperglycemia[ICD10: E11.65] [facility] CPT-4: 98557 10/12/2016 ([id number]) 41155 EST. PATIENT, LEVEL IV Diagnosis: Type 2 diabetes mellitus without complications[ICD10: E11.9] Diagnosis: Essential (primary) hypertension[ICD10: I10] DORETHA Castro MD CPT-4: 61646 06/23/2016 ([id number]) 21745 EST. PATIENT, LEVEL III Diagnosis: Type 2 diabetes mellitus without complications[ICD10: E11.9] DORETHA Castro MD CPT-4: 65999 02/25/2016 ([id number]) 91950 EST. PATIENT, LEVEL III Diagnosis: Type 2 diabetes mellitus without complications[ICD10: E11.9] DORETHA Castro MD CPT-4: 56772 01/14/2016 ([id number]) 59080 EST. PATIENT, LEVEL III Diagnosis: Type 2 diabetes mellitus with hyperglycemia[ICD10: E11.65] DORETHA Castro MD CPT-4: 12293 12/10/2015 ([id number]) 89382 EST. PATIENT, LEVEL IV Diagnosis: Type 2 diabetes mellitus with hyperglycemia[ICD10: E11.65] Diagnosis: Essential (primary) hypertension[ICD10: I10] DORETHA Castro MD CPT-4: 31058 11/26/2015 ([id number]) 03337 EST. PATIENT, LEVEL IV Diagnosis: ESSENTIAL HYPERTENSION[ICD9: 401.9] Diagnosis: Diabetes mellitus out of control[ICD9: 250.02] DORETHA Castro MD CPT-4: 58532 01/22/2015 ([id number]) OFFICE VISIT, NEW - LEVEL 4 Diagnosis: ESSENTIAL HYPERTENSION[ICD9: 401.9] Diagnosis: Diabetes mellitus out of control[ICD9: 250.02] Diagnosis: HYPERLIPIDEMIA[ICD9: 272.4] Sammi Carrillo MD [facility] CPT- 4: 13384 11/11/2014 Plan of Care Planned Activity Notes [...] to medications. 07/05/2018 Appointment: Sammi Carrillo [facility]el: [facility] [place] (15 min) Moderate 07/05/2018 Patient Education: Patient [...] ua - negative. 06/13/2017 Appointment: Sammi Carrillotel: [phone] [facility] [place] (15 min) Moderate 06/13/2017 Patient Education: Patient Medication Summary Completed 06/13/2017 Appointment: Ruth Ann Carrilloy WPtel[place] [phone] [place] [place] (15 min) Moderate 02/09/2017 Visit Plan: [...] blood pressure readings at home. 10/12/2016 Appointment: Marta Sammi WPtel: [phone] [facility] [place] (15 min) Moderate 10/12/2016 Patient Education: [...] pressure readings at home. 06/23/2016 Appointment: Sammi Carrillo WPtel: [phone] [facility] [place] (15 min) Moderate 06/23/2016 Patient Education: Patient [...] less controlled. 02/25/2016 Appointment: Sammi Carrillo [facility]Ptel[place] [phone] [place] (15 min) Moderate 02/25/2016 Patient Education: Patient Medication Summary Completed 02/25/2016 Visit Plan: DM - not yet optimally controlled - but it has been improving based on recent FSBS reports - recommended to continue with decrease in carbs, improved dietary control and improved fluid intake. 01/14/2016 Appointment: Sammi Carrillo [facility]Ptel[phone] [place] (15 min) Moderate 01/14/2016 Patient Education: Patient [...] blood pressure readings at home. 11/26/2015 Appointment: MartaSammi WPtel: [phone] [facility] (15 min) Moderate 11/26/2015 Patient Education: Patient Medication Summary Completed 11/26/2015 Patient Education: Smoking and Tobacco Addiction Completed 11/26/2015 Patient Education: Hypertension Completed 11/26/2015 Patient Education: Patient Medication Summary Completed 11/20/2015 Appointment: Marta Sammi WPtel: [phone] [facility] (15 min) Moderate 03/05/2015 Visit Plan: Diabetes [...] at home. 01/22/2015 Appointment: Sammi Carrillo WPtel: [facility] Follow up 01/22/2015 Patient Education: Patient Medication [...] medications. 11/11/2014 Appointment: Sammi Carrillo WPtel: [phone] [place] [place] New Patient 11/11/2014 Patient Education: [...]
--- OUTSIDE RECORDS SUMMARY | 2018-10-20 14:50 | XMS REPORT | CCD ---
Author Author Sammi Carrillo Organization Sammi Carrillo MD, [facility] Address [address] [place] [address] Phone Care Team Providers Care Dietitian Teaching Name Role Phone PP Unavailable CCM Unavailable Summary Purpose Interface Exchange Insurance Providers Payer name Policy type / Coverage type Covered constitution party ID Effective Begin Date Effective End Date [employer] Commercial Insurance [id number] Unknown Unknown WPS Medicare Part B Commercial Insurance [id number] Unknown Unknown Family history Mother Diagnosis Age At Onset Hypertension Unknown Father Diagnosis Age At Onset Cancer Unknown Social History Social History Element Codes Description Effective Dates Tobacco history SNOMED CT: 440976576 Currently uses smokeless tobacco Chews 11/26/2015 Frequency of drinks SNOMED CT: 925225267 14 drinks per week About 2 beers per night- More on Fridays11/26/2015 Marital status Unknown Myah 11/11/2014 Number of children Unknown 3 11/11/[address]: 436289 Currently drinks alcohol beer 11/11/2014 Allergies, Adverse [...] 100 unit/mL (3 mL) subcutaneous pen RxNorm: 098724 Unit(s) INJECT 35 UNITS UNDER THE SKIN TWO TIMES A DAY 07/10/2018 10/17/2018 Active Updated script atorvastatin 40 mg tablet RxNorm: 107217 TAKE ONE TABLET BY MOUTH DAILY 06/15/2018 12/11/2018 Active Lantus Solostar U-100 Insulin 100 unit/mL (3 mL) subcutaneous pen RxNorm: 990540 INJECT 30 UNITS UNDER THE SKIN TWO TIMES A DAY 05/0407/09/2018 Inactive Lantus Solostar U-100 Insulin 100 unit/mL (3 mL) subcutaneous pen RxNorm: 206517 INJECT 30 UNITS UNDER THE SKIN TWO TIMES A DAY 01/2004/29/2018 Inactive atorvastatin 40 mg tablet RxNorm: 461639 TAKE ONE TABLET BY MOUTH DAILY 12/12/2017 06/09/2018 Inactive Lantus Solostar U-100 Insulin 100 unit/mL (3 mL) subcutaneous pen RxNorm: 641418 INJECT 30 UNITS UNDER THE SKIN TWO TIMES A DAY 11/0701/19/2018 Inactive enalapril maleate 10 mg tablet RxNorm: 089253 1 Tablet(s) PO daily TAKE ONE TABLET BY MOUTH DAILY 10/11/20172018 Active enalapril maleate 10 mg tablet RxNorm: 229387 TAKE ONE TABLET BY MOUTH DAILY 07/11/2017 10/10/2017 Inactive enalapril maleate 10 mg tablet RxNorm: 161222 1 Tablet(s) PO daily TAKE ONE TABLET BY MOUTH DAILY 07/11/20172017 Inactive Lantus Solostar 100 unit/mL (3 mL) subcutaneous insulin pen RxNorm: 375984 INJECT 55 UNITS UNDER THE SKIN DAILY 07/05/2017 07/09/2018 Inactive Request already responded to by other means (e.g. phone or fax) OneTouch Verio strips RxNorm: USE TO TEST BLOOD SUGAR DAILY 11/06/2017 Inactive Lantus Solostar U-100 Insulin 100 unit/mL (3 mL) subcutaneous pen RxNorm: 501603 30 Unit(s) SQ BID 06/28/201707/2017 Inactive Lantus Solostar 100 unit/mL (3 mL) subcutaneous insulin pen RxNorm: 906462 30 Unit(s) BID 06/14/2017 06/17/2017 Inactive Lantus Solostar 100 unit/mL (3 mL) subcutaneous insulin pen RxNorm: 479224 INJECT 55 UNITS UNDER THE SKIN DAILY 03/09/2017 06/13/2017 Inactive enalapril maleate 10 mg tablet RxNorm: 330673 TAKE ONE TABLET BY MOUTH DAILY 12/31/2016 06/28/2017 Inactive atorvastatin 40 mg tablet RxNorm: 367869 TAKE ONE TABLET BY MOUTH DAILY 11/19/2016 11/13/2017 Inactive Lantus Solostar 100 unit/mL (3 mL) subcutaneous insulin pen RxNorm: 996776 55 Unit(s) daily 10/12/2016 03/08/2017 Inactive Lantus Solostar 100 unit/mL (3 mL) subcutaneous insulin pen RxNorm: 894434 INJECT 40 UNITS UNDER THE SKIN EVERY EVENING 07/22/2016 10/11/2016 Inactive enalapril maleate 10 mg tablet RxNorm: 709488 TAKE ONE TABLET BY MOUTH DAILY 03/23/2016 12/17/2016 Inactive Lantus Solostar 100 unit/mL (3 mL) subcutaneous insulin pen RxNorm: 724493 40 Unit(s) SQ QPM 01/14/2016 07/21/2016 Inactive atorvastatin 40 mg tablet RxNorm: 133815 1 Tablet(s) PO daily 11/20/2015 11/13/2016 Inactive Lantus Solostar 100 unit/mL (3 mL) subcutaneous insulin pen RxNorm: 765319 40 Unit(s) SQ QPM 01/22/2015 01/13/2016 Inactive please use for next fill 90 day supply OneTouch Verio strips RxNorm: 1 test Miscellaneous TID as needed 01/22/2015 06/27/2017 Inactive BD Pen Mini subcutaneous RxNorm: 1 SQ daily 01/21/2015 No Stop Date Active needles to fit lantus pen Lantus Solostar 100 unit/mL (3 mL) subcutaneous insulin pen RxNorm: 008773 35 u x 3 days then 40 u daily there after Unit(s) SQ QPM 201401/21/2015 Inactive please use for next fill 90 day supply glyburide 5 mg tablet RxNorm: 824235 1 Tablet(s) PO BID 201401/17/2015 Inactive enalapril maleate 10 mg tablet RxNorm: 117952 1 Tablet(s) PO daily 11/11/2014 11/10/2014 Inactive atorvastatin 40 mg tablet RxNorm: 831469 1 Tablet(s) PO daily 11/11/2014 11/10/2014 Inactive Lantus Solostar 100 unit/mL (3 mL) subcutaneous insulin pen RxNorm: 714877 30 Unit(s) SQ QPM 11/11/2014 01/20/2015 Inactive atorvastatin 40 mg tablet RxNorm: 277446 1 Tablet(s) PO daily 11/11/2014 11/05/2015 Inactive enalapril maleate 10 mg tablet RxNorm: 304681 1 Tablet(s) PO daily 11/11/2014 11/05/2015 Inactive BD Pen Mini subcutaneous RxNorm: 1 SQ daily No Start Date 01/20/2015 Inactive needles to fit lantus pen glyburide 5 mg tablet RxNorm: 894510 1 Tablet(s) PO daily No Start Date [...] Ord30 C/HDL 3.2 Ratio 07/06/2018 Comp Metabolic Yno280 NA 140 mEq/L 07/06/2018 Comp Metabolic Jeb435 K 4.4 mEq/L 07/06/2018 Comp Metabolic Whj198 CL 103 mEq/L 07/06/2018 Comp Metabolic Udu236 CO2 31.0 mEq/L 07/06/2018 Comp Metabolic Rcz389 ANION GAP 10 07/06/2018 Comp Metabolic Qbm663 GLUCOSE 151 mg/dL 07/06/2018 Comp Metabolic Ext727 Creat 0.8 mg/dL 07/06/2018 Comp Metabolic Ahz543 eGFR 105 ml/min/1.73m2 07/06/2018 Comp Metabolic Sbu079 BUN 10 mg/dL 07/06/2018 Comp Metabolic Ase593 B/C Ratio 12.8 Ratio 07/06/2018 Comp Metabolic Yyh576 CALCIUM 8.8 mg/dL 07/06/2018 Comp Metabolic Dxg896 ALK PHOS 87 U/L 07/06/2018 Comp Metabolic Cfp627 AST(SGOT) 16 U/L 07/06/2018 Comp Metabolic Hrl364 ALT(SGPT) 23 U/L 07/06/2018 Comp Metabolic Sve666 BILI T 1.0 mg/dL 07/06/2018 Comp Metabolic Ltz871 ALBUMIN 4.1 g/dL 07/06/2018 Comp Metabolic Hgl754 TPRO 6.4 g/dL 07/06/2018 Comp Metabolic Hcz512 GLOB 2.3 g/dL 07/06/2018 Comp Metabolic Hkf560 A/G Ratio 1.8 Ratio 07/06/2018 Comp Metabolic Jhe771 Osmo 281 mOsmo 07/06/2018 Cbc With Differential Ord2 WBC 7.46 K/ul 07/06/2018 Cbc With Differential Ord2 RBC 4.71 M/ul 07/06/2018 Cbc With Differential Ord2 HGB 14.3 g/dl 07/06/2018 Cbc With Differential Ord2 Neut% 62.9 % 07/06/2018 Cbc With Differential Ord2 HCT 43.0 % 07/06/2018 Cbc With Differential Ord2 Lymph% 26.8 % 07/06/2018 Cbc With Differential Ord2 MCV 91.3 fl 07/06/2018 Cbc With Differential Ord2 Tompkins% 8.8 % 07/06/2018 Cbc With Differential Ord2 MCH 30.4 pg 07/06/2018 Cbc With Differential Ord2 Eos% 1.2 % 07/06/2018 Cbc With Differential Ord2 MCHC 33.3 pg 07/06/2018 Cbc With Differential Ord2 PLT 220 K/ul 07/06/2018 Cbc With Differential Ord2 Baso% 0.3 % 07/06/2018 Cbc With Differential Ord2 Neut ABS# 4.69 K/ul 07/06/2018 Cbc With Differential Ord2 RDW 13.9 % 07/06/2018 Cbc With Differential Ord2 Lymph ABS# 2.00 K/ul 07/06/2018 Cbc With Differential Ord2 [place]kins ABS# 0.7 K/ul 07/06/2018 Cbc With Differential Ord2 Eos ABS# 0.1 K/ul 07/06/2018 Cbc With Differential Ord2 Baso ABS# 0.0 K/ul 07/06/2018 %Hba1C Dtd925 % HbA1c 55565-7 7.9 % 07/06/2018 %Hba1C Fcl139 Gluc Ave 180 mg/dL 07/06/2018 Total Psa Ord10 PSA 1.18 ng/mL 07/06/2018 Tsh Ord6 TSH (3rd IS) 2.07 uIU/mL 07/06/2018 Microalbumin Vzf946 MicroAlb <0.7 mg/dL 06/13/2017 Urinalysis Ord28 U-Color [...] 14.2 g/dl 06/13/2017 Cbc With Differential Ord2 Neut% 68.1 % 06/13/2017 Cbc With Differential Ord2 HCT 41.6 % 06/13/2017 Cbc With Differential Ord2 MCV 90.4 fl 06/13/2017 Cbc With Differential Ord2 Lymph% 21.7 % 06/13/2017 Cbc With Differential Ord2 MCH 30.9 pg 06/13/2017 Cbc With Differential Ord2 Tompkins% 9.1 % 06/13/2017 Cbc With Differential Ord2 Eos% 0.7 % 06/13/2017 Cbc With Differential Ord2 MCHC 34.1 pg 06/13/2017 Cbc With Differential Ord2 PLT 230 K/ul 06/13/2017 Cbc With Differential Ord2 Baso% 0.4 % 06/13/2017 Cbc With Differential Ord2 Neut ABS# 5.70 K/ul 06/13/2017 Cbc With Differential Ord2 RDW 13.8 % 06/13/2017 Cbc With Differential Ord2 Lymph ABS# 1.81 K/ul 06/13/2017 Cbc With Differential Ord2 [place] ABS# 0.8 K/ul 06/13/2017 Cbc With Differential Ord2 Eos ABS# 0.1 K/ul 06/13/2017 Cbc With Differential Ord2 Baso ABS# 0.0 K/ul 06/13/2017 Lipid Ord30 CHOL 138 mg/dL 06/13/2017 Lipid Ord30 HDL 58.0 mg/dl 06/13/2017 Lipid Ord30 TRIG 83 mg/dL 06/13/2017 Lipid Ord30 LDL 63 mg/dL 06/13/2017 Lipid Ord30 C/HDL 2.4 Ratio 06/13/2017 Comp Metabolic Mlx686 NA 140 mEq/L 06/13/2017 Comp Metabolic Ghn068 K 4.6 mEq/L 06/13/2017 Comp Metabolic Tqu186 CL 105 mEq/L 06/13/2017 Comp Metabolic Pat906 CO2 28.0 mEq/L 06/13/2017 Comp Metabolic Dka307 ANION GAP 12 06/13/2017 Comp Metabolic Qat257 GLUCOSE 126 mg/dL 06/13/2017 Comp Metabolic Hji699 Creat 0.8 mg/dL 06/13/2017 Comp Metabolic Jqe705 eGFR 104 ml/min/1.73m2 06/13/2017 Comp Metabolic Uwx001 BUN 14 mg/dL 06/13/2017 Comp Metabolic Nso014 B/C Ratio 17.7 Ratio 06/13/2017 Comp Metabolic Rjg480 CALCIUM 9.4 mg/dL 06/13/2017 Comp Metabolic Irq766 ALK PHOS 74 U/L 06/13/2017 Comp Metabolic Ljg730 AST(SGOT) 19 U/L 06/13/2017 Comp Metabolic Xgr552 ALT(SGPT) 22 U/L 06/13/2017 Comp Metabolic Mxv119 BILI T 1.2 mg/dL 06/13/2017 Comp Metabolic Tpc836 ALBUMIN 4.5 g/dL 06/13/2017 Comp Metabolic Kjx666 TPRO 6.6 g/dL 06/13/2017 Comp Metabolic Nny199 GLOB 2.1 g/dL 06/13/2017 Comp Metabolic Goz401 A/G Ratio 2.1 Ratio 06/13/2017 Comp Metabolic Ysy235 Osmo 281 mOsmo 06/13/2017 %Hba1C Axs503 % HbA1c 00693-4 7.6 % 06/13/2017 %Hba1C Ecl945 Gluc Ave 171 mg/dL 06/13/2017 Tsh Ord6 hTSH II 2.04 uIU/mL 09/14/2016 Comp Metabolic Sgz087 NA 138 mEq/L 09/14/2016 Comp Metabolic Dvg748 K 4.5 mEq/L 09/14/2016 Comp Metabolic Nfc570 CL 103 mEq/L 09/14/2016 Comp Metabolic Pea376 CO2 29.0 mEq/L 09/14/2016 Comp Metabolic Ibt576 ANION GAP 11 09/14/2016 Comp Metabolic Pke707 GLUCOSE 234 mg/dL 09/14/2016 Comp Metabolic Oea242 Creat 0.9 mg/dL 09/14/2016 Comp Metabolic Psh711 eGFR 86 ml/min/1.73m2 09/14/2016 Comp Metabolic Ray994 BUN 16 mg/dL 09/14/2016 Comp Metabolic Agt642 B/C Ratio 17.2 Ratio 09/14/2016 Comp Metabolic Xuj418 CALCIUM 9.0 mg/dL 09/14/2016 Comp Metabolic Arg298 ALK PHOS 69 U/L 09/14/2016 Comp Metabolic Lqw687 AST(SGOT) 21 U/L 09/14/2016 Comp Metabolic Psm103 ALT(SGPT) 26 U/L 09/14/2016 Comp Metabolic Lmw137 BILI T 1.1 mg/dL 09/14/2016 Comp Metabolic Gtw952 ALBUMIN 4.2 g/dL 09/14/2016 Comp Metabolic Dte622 TPRO 6.2 g/dL 09/14/2016 Comp Metabolic Emb582 GLOB 2.0 g/dL 09/14/2016 Comp Metabolic Iys971 A/G Ratio 2.1 Ratio 09/14/2016 Comp Metabolic Gfd336 Osmo 284 mOsmo 09/14/2016 Cbc With Differential Ord2 WBC 6.67 K/ul 09/14/2016 Cbc With Differential Ord2 RBC 4.42 M/ul 09/14/2016 Cbc With Differential Ord2 HGB 13.9 g/dl 09/14/2016 Cbc With Differential Ord2 Neut% 66.8 % 09/14/2016 Cbc With Differential Ord2 HCT 40.6 % 09/14/2016 Cbc With Differential Ord2 MCV 91.9 fl 09/14/2016 Cbc With Differential Ord2 Lymph% 23.8 % 09/14/2016 Cbc With Differential Ord2 MCH 31.4 pg 09/14/2016 Cbc With Differential Ord2 Tompkins% 8.5 % 09/14/2016 Cbc With Differential Ord2 Eos% 0.6 % 09/14/2016 Cbc With Differential Ord2 MCHC 34.2 pg 09/14/2016 Cbc With Differential Ord2 Baso% 0.3 % 09/14/2016 Cbc With Differential Ord2 PLT 192 K/ul 09/14/2016 Cbc With Differential Ord2 Neut ABS# 4.45 K/ul 09/14/2016 Cbc With Differential Ord2 RDW 14.3 % 09/14/2016 Cbc With Differential Ord2 Lymph ABS# 1.59 K/ul 09/14/2016 Cbc With Differential Ord2 [place] ABS# 0.6 K/ul 09/14/2016 Cbc With Differential Ord2 Eos ABS# 0.0 K/ul 09/14/2016 Cbc With Differential Ord2 Baso ABS# 0.0 K/ul 09/14/2016 Lipid Ord30 CHOL 133 mg/dL 09/14/2016 Lipid Ord30 HDL 66.0 mg/dl 09/14/2016 Lipid Ord30 TRIG 50 mg/dL 09/14/2016 Lipid Ord30 LDL 57 mg/dL 09/14/2016 Lipid Ord30 C/HDL 2.0 Ratio 09/14/2016 %Hba1C Yiu332 % HbA1c 35587-3 7.2 % 09/14/2016 %Hba1C Pkd167 Gluc Ave 160 mg/dL 09/14/2016 %Hba1C Wjg332 % HbA1c 71323-2 7.3 % 02/23/2016 %Hba1C Jjk813 Gluc Ave 163 mg/dL 02/23/2016 Comp Metabolic Orx205 NA 137 mEq/L 11/24/2015 Comp Metabolic Lfc130 K 4.1 mEq/L 11/24/2015 Comp Metabolic Xsf018 CL 102 mEq/L 11/24/2015 Comp Metabolic Tzw210 CO2 28.0 mEq/L 11/24/2015 Comp Metabolic Ube658 ANION GAP 11 11/24/2015 Comp Metabolic Caw578 GLUCOSE 102 mg/dL 11/24/2015 Comp Metabolic Gwx535 Creat 0.8 mg/dL 11/24/2015 Comp Metabolic Rcj352 eGFR 98 ml/min/1.73m2 11/24/2015 Comp Metabolic Gld917 BUN 17 mg/dL 11/24/2015 Comp Metabolic Phk366 B/C Ratio 20.5 Ratio 11/24/2015 Comp Metabolic Jzc947 CALCIUM 8.8 mg/dL 11/24/2015 Comp Metabolic Pov595 ALK PHOS 61 U/L 11/24/2015 Comp Metabolic Tek737 AST(SGOT) 23 U/L 11/24/2015 Comp Metabolic Lsz228 ALT(SGPT) 24 U/L 11/24/2015 Comp Metabolic Hxy321 BILI T 1.1 mg/dL 11/24/2015 Comp Metabolic Zqd828 ALBUMIN 4.0 g/dL 11/24/2015 Comp Metabolic Bef538 TPRO 6.2 g/dL 11/24/2015 Comp Metabolic Uyi749 GLOB 2.2 g/dL 11/24/2015 Comp Metabolic Yly416 A/G Ratio 1.8 Ratio 11/24/2015 Comp Metabolic Utc540 Osmo 276 mOsmo 11/24/2015 %Hba1C Nhw337 % HbA1c 08779-4 10.2 % 11/24/2015 %Hba1C Per401 Gluc Ave 246 mg/dL 11/24/2015 Cbc With [...] 30.9 pg 11/24/2015 Cbc With Differential Ord2 [place]pkins% 12.1 % 11/24/2015 Cbc With Differential Ord2 MCHC 34.0 pg 11/24/2015 Cbc With Differential Ord2 Eos% 1.2 % 11/24/2015 Cbc With Differential Ord2 Baso% 0.3 % 11/24/2015 Cbc With Differential Ord2 PLT 216 K/ul 11/24/2015 Cbc With Differential Ord2 RDW 13.6 % 11/24/2015 Cbc With Differential Ord2 Neut ABS# 5.61 K/ul 11/24/2015 Cbc With Differential Ord2 Lymph ABS# 1.12 K/ul 11/24/2015 Cbc With Differential Ord2 [place] ABS# 0.9 K/ul 11/24/2015 Cbc With Differential [...] Ord30 C/HDL 2.2 Ratio 11/24/2015 Comp Metabolic Fmv971 NA 140 mEq/L 01/17/2015 Comp Metabolic Evu654 K 4.3 mEq/L 01/17/2015 Comp Metabolic Tpz757 CL 104 mEq/L 01/17/2015 Comp Metabolic Grg436 CO2 27.0 mEq/L 01/17/2015 Comp Metabolic Beq237 ANION GAP 13 01/17/2015 Comp Metabolic Rym449 GLUCOSE 146 mg/dL 01/17/2015 Comp Metabolic Qcm227 Creat 0.8 mg/dL 01/17/2015 Comp Metabolic Nhn165 eGFR 97 ml/min/1.73m2 01/17/2015 Comp Metabolic Ghb573 BUN 14 mg/dL 01/17/2015 Comp Metabolic Zfo106 B/C Ratio 16.7 Ratio 01/17/2015 Comp Metabolic Xle266 CALCIUM 9.5 mg/dL 01/17/2015 Comp Metabolic Rzf175 ALK PHOS 70 U/L 01/17/2015 Comp Metabolic Jmh350 AST(SGOT) 19 U/L 01/17/2015 Comp Metabolic Jdb407 ALT(SGPT) 27 U/L 01/17/2015 Comp Metabolic Ibz129 BILI T 1.3 mg/dL 01/17/2015 Comp Metabolic Hud996 ALBUMIN 4.3 g/dL 01/17/2015 Comp Metabolic Qno534 TPRO 6.7 g/dL 01/17/2015 Comp Metabolic Itt129 GLOB 2.4 g/dL 01/17/2015 Comp Metabolic Utu898 A/G Ratio 1.8 Ratio 01/17/2015 Comp Metabolic Ome396 Osmo 283 mOsmo 01/17/2015 Lipid Ord30 CHOL [...] Ord6 hTSH II 1.88 uIU/mL 01/17/2015 %Hba1C Scp266 % HbA1c 36136-2 8.8 % 01/17/2015 %Hba1C Wsx528 Gluc Ave 206 mg/dL 01/17/2015 Review of [...] Codes Date URINALYSIS NONAUTO W/O SCOPE CPT-4: 76906 06/13/2017 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 3-[address]: 660539500 CPT-4: G0436 11/26/2015 Vital Signs Date Vital 07/05/2018 Blood Pressure 1: 156/82 Code : 8480-6 Blood Pressure 1: 138/70 Code: 8480-6 BMI: 26.9 Code: 67030-3 Heart Rate 1: 76 bpm Height: 5'9" SpO2: 98% Weight: 182 lbs 06/13/2017 Blood Pressure 1: 136/68 Code : 8480-6 BMI: 25.8 Code : 31731-3 Heart Rate 1 : 80 bpm Height: 5'9" SpO2: 98% Weight: 175 lbs 10/12/2016 Blood Pressure 1: 154/80 Code : 8480-6 BMI: 25.5 Code : 54677-4 Heart Rate 1 : 83 bpm Height: 5'9" SpO2: 98% Weight: 173 lbs 06/23/2016 Blood Pressure 1: 132/78 Code : 8480-6 BMI: 24.4 Code : 14420-8 Heart Rate 1 : 64 bpm Height: 5'9" SpO2: 97% Weight: 165 lbs 02/25/2016 Blood Pressure 1: 134/72 Code : 8480-6 BMI: 24.4 Code : 55789-0 Heart Rate 1 : 75 bpm Height: 5'9" SpO2: 99% Weight: 165 lbs 01/14/2016 Blood Pressure 1: 140/68 Code : 8480-6 BMI: 24.8 Code : 17611-6 Heart Rate 1 : 76 bpm Height: 5'9" SpO2: 98% Weight: 168 lbs 12/10/2015 Blood Pressure 1: 134/68 Code : 8480-6 BMI: 24.8 Code : 33979-0 Heart Rate 1 : 87 bpm Height: 5'9" SpO2: 98% Weight: 168 lbs 11/26/2015 Blood Pressure 1: 160/78 Code : 8480-6 BMI: 26.1 Code : 13140-8 Heart Rate 1 : 71 bpm Height: 5'9" SpO2: 98% Weight: 177 lbs 01/22/2015 Blood Pressure 1: 138/72 Code : 8480-6 BMI: 27.3 Code : 36364-1 Heart Rate 1 : 77 bpm Height: 5'9" SpO2: 98% Weight: 185 lbs 11/11/2014 Blood Pressure 1: 132/80 Code : 8480-6 BMI: 27.2 Code : 87155-0 Heart Rate 1 : 72 bpm Height: [...] data Encounters Encounter Performer Location Codes Date ([id number]) 19892 EST. PATIENT, LEVEL IV Diagnosis: Essential (primary) hypertension[ICD10: I10] Diagnosis: Type 2 diabetes mellitus with hyperglycemia[ICD10: E11.65] Diagnosis: Mixed hyperlipidemia[ICD10: E78.2] Sammi Carrillo MD, [facility] CPT-4: 76202 07/05/2018 ([id number]) 62857 EST. PATIENT, LEVEL IV Diagnosis: Type 2 diabetes mellitus without complications[ICD10: E11.9] Diagnosis: Essential (primary) hypertension[ICD10: I10] Diagnosis: Mixed hyperlipidemia[ICD10: E78.2] Diagnosis: Dysuria[ICD10: R30.0] Sammi Carrillo MD, [facility] CPT-4: 09674 06/13/2017 ([id number]) 11930 EST. PATIENT, LEVEL IV Diagnosis: Essential (primary) hypertension[ICD10: I10] Diagnosis: Type 2 diabetes mellitus with hyperglycemia[ICD10: E11.65] Sammi Carrillo MD , [facility] CPT-4: 38422 10/12/2016 [id number]) 23766 EST. PATIENT, LEVEL IV Diagnosis: Type 2 diabetes mellitus without complications[ICD10: E11.9] Diagnosis: Essential (primary) hypertension[ICD10: I10] Sammi Carrillo MD, [facility] CPT-4: 22746 06/23/2016 ([id number]) 66838 EST. PATIENT, LEVEL III Diagnosis: Type 2 diabetes mellitus without complications[ICD10: E11.9] DORETHA Castro MD CPT-4: 55476 02/25/2016 ([id number]) 23544 EST. PATIENT, LEVEL III Diagnosis: Type 2 diabetes mellitus without complications[ICD10: E11.9] DORETHA Castro MD CPT-4: 99619 01/14/2016 ([id number]) 47719 EST. PATIENT, LEVEL III Diagnosis: Type 2 diabetes mellitus with hyperglycemia[ICD10: E11.65] DORETHA Castro MD CPT-4: 44009 12/10/2015 ([id number]) 58328 EST. PATIENT, LEVEL IV Diagnosis: Type 2 diabetes mellitus with hyperglycemia[ICD10: E11.65] Diagnosis: Essential (primary) hypertension[ICD10: I10] DORETHA Castro MD CPT-4: 89248 11/26/2015 ([id number]) 70540 EST. PATIENT, LEVEL IV Diagnosis: ESSENTIAL HYPERTENSION[ICD9: 401.9] Diagnosis: Diabetes mellitus out of control[ICD9: 250.02] DORETHA Castro MD CPT-4: 07854 01/22/2015 ([id number]) OFFICE VISIT, NEW - LEVEL 4 Diagnosis: ESSENTIAL HYPERTENSION[ICD9: 401.9] Diagnosis: Diabetes mellitus out of control[ICD9: 250.02] Diagnosis: HYPERLIPIDEMIA[ICD9: 272.4] Sammi Carrillo MD [facility] CPT- 4: 46981 11/11/2014 Plan of Care Planned Activity Notes [...] to medications. 07/05/2018 Appointment: Sammi Carrillo WPtel: [phone] [facility] [place] (15 min) Moderate 07/05/2018 Patient Education: Patient [...] check ua - negative. 06/13/2017 [phone] [place] [place] ([place]) Moderate 06/13/2017 Patient Education: Patient Medication Summary Completed 06/13/2017 Appointment: [facility] [phone] [place] (15 min) Moderate 02/09/2017 Visit Plan: Diabetes [...] at home. 10/12/2016 Appointment: [facility] [phone] [place] ([place] min) Moderate 10/12/2016 Patient Education: Patient [...] at home. 06/23/2016 Appointment: [facility] [phone] [place] [place] (15 min) Moderate 06/23/2016 Patient Education: [...] less controlled. 02/25/2016 Appointment: Sammi Carrillo WPtel: [phone] [facility] (15 min) Moderate 02/25/2016 Patient Education: Patient Medication Summary Completed 02/25/2016 Visit Plan: DM - not yet optimally controlled - but it has been improving based on recent FSBS reports - recommended to continue with decrease in carbs, improved dietary control and improved fluid intake. 01/14/2016 Appointment: Sammi Carrillo WPtel: [phone] [phone] (15 min) Moderate 01/14/2016 Patient Education: Patient [...] blood pressure readings at home. 11/26/2015 Appointment: a[facility]mmi [facility]illo [facility] [phone] [place] ([place] min) Moderate 11/26/2015 Patient Education: Patient Medication Summary Completed 11/26/2015 Patient Education: Smoking and Tobacco Addiction Completed 11/26/2015 Patient Education: Hypertension Completed 11/26/2015 Patient Education: Patient Medication Summary Completed 11/20/2015 Appointment: Marta Sammi WPtel: [phone] [phone] (15 min) Moderate 03/05/2015 Visit Plan: Diabetes [...] at home. 01/22/2015 Appointment: Sammi Carrillo WPtel: [facility] Follow up 01/22/2015 Patient Education: Patient Medication [...] to medications. 11/11/2014 Appointment: [facility] [phone] [place] [place] New Patient 11/11/2014 Patient Education: [...]
--- OUTSIDE RECORDS SUMMARY | 2018-10-20 14:52 | XMS REPORT | CCD ---
Author Author Sammi Carrillo Organization Sammi Carrillo MD, [facility] Address [address] [place] [address] Phone Care Team Providers Care Electrician Master Name Role Phone PP Unavailable CCM Unavailable Summary Purpose Interface Exchange Insurance Providers Payer name Policy type / Coverage type Covered green party ID Effective Begin Date Effective End Date Stepcase Commercial Insurance [id number] Unknown Unknown WPS Medicare Part B Commercial Insurance [id number] Unknown Unknown Family history Mother Diagnosis Age At Onset Hypertension Unknown Father Diagnosis Age At Onset Cancer Unknown Social History Social History Element Codes Description Effective Dates Tobacco history SNOMED CT: 619765049 Currently uses smokeless tobacco Chews 11/26/2015 Frequency of drinks SNOMED CT: 525548079 14 drinks per week About 2 beers per night- More on Fridays11/26/2015 Marital status Unknown Myah 11/11/2014 Number of children Unknown 3 11/11/[address]: 891338 Currently drinks alcohol beer 11/11/2014 Allergies, Adverse [...] Start Date Stop Date Status Fill Instructions atorvastatin 40 mg tablet RxNorm: 415893 TAKE ONE TABLET BY MOUTH DAILY 06/15/2018 12/11/2018 Active Lantus Solostar U-100 Insulin 100 unit/mL (3 mL) subcutaneous pen RxNorm: 203269 INJECT 30 UNITS UNDER THE SKIN TWO TIMES A DAY 05/0408/11/2018 Active Lantus Solostar U-100 Insulin 100 unit/mL (3 mL) subcutaneous pen RxNorm: 274542 INJECT 30 UNITS UNDER THE SKIN TWO TIMES A DAY 01/2004/29/2018 Inactive atorvastatin 40 mg tablet RxNorm: 341581 TAKE ONE TABLET BY MOUTH DAILY 12/12/2017 06/09/2018 Inactive Lantus Solostar U-100 Insulin 100 unit/mL (3 mL) subcutaneous pen RxNorm: 733494 INJECT 30 UNITS UNDER THE SKIN TWO TIMES A DAY 11/0701/19/2018 Inactive enalapril maleate 10 mg tablet RxNorm: 270757 1 Tablet(s) PO daily TAKE ONE TABLET BY MOUTH DAILY 10/11/20172018 Active enalapril maleate 10 mg tablet RxNorm: 634815 TAKE ONE TABLET BY MOUTH DAILY 07/11/2017 10/10/2017 Inactive enalapril maleate 10 mg tablet RxNorm: 254105 1 Tablet(s) PO daily TAKE ONE TABLET BY MOUTH DAILY 07/11/20172017 Inactive Lantus Solostar 100 unit/mL (3 mL) subcutaneous insulin pen RxNorm: 830601 INJECT 55 UNITS UNDER THE SKIN DAILY 07/05/2017 12/13/2017 Inactive Request already responded to by other means (e.g. phone or fax) OneTouch Verio strips RxNorm: USE TO TEST BLOOD SUGAR DAILY 11/06/2017 Inactive Lantus Solostar U-100 Insulin 100 unit/mL (3 mL) subcutaneous pen RxNorm: 658555 30 Unit(s) SQ BID 06/28/201707/2017 Inactive Lantus Solostar 100 unit/mL (3 mL) subcutaneous insulin pen RxNorm: 272297 30 Unit(s) BID 06/14/2017 06/17/2017 Inactive Lantus Solostar 100 unit/mL (3 mL) subcutaneous insulin pen RxNorm: 396653 INJECT 55 UNITS UNDER THE SKIN DAILY 03/09/2017 06/13/2017 Inactive enalapril maleate 10 mg tablet RxNorm: 547936 TAKE ONE TABLET BY MOUTH DAILY 12/31/2016 06/28/2017 Inactive atorvastatin 40 mg tablet RxNorm: 018848 TAKE ONE TABLET BY MOUTH DAILY 11/19/2016 11/13/2017 Inactive Lantus Solostar 100 unit/mL (3 mL) subcutaneous insulin pen RxNorm: 731495 55 Unit(s) daily 10/12/2016 03/08/2017 Inactive Lantus Solostar 100 unit/mL (3 mL) subcutaneous insulin pen RxNorm: 185956 INJECT 40 UNITS UNDER THE SKIN EVERY EVENING 07/22/2016 10/11/2016 Inactive enalapril maleate 10 mg tablet RxNorm: 973545 TAKE ONE TABLET BY MOUTH DAILY 03/23/2016 12/17/2016 Inactive Lantus Solostar 100 unit/mL (3 mL) subcutaneous insulin pen RxNorm: 017383 40 Unit(s) SQ QPM 01/14/2016 07/21/2016 Inactive atorvastatin 40 mg tablet RxNorm: 960415 1 Tablet(s) PO daily 11/20/2015 11/13/2016 Inactive Lantus Solostar 100 unit/mL (3 mL) subcutaneous insulin pen RxNorm: 275287 40 Unit(s) SQ QPM 01/22/2015 01/13/2016 Inactive please use for next fill 90 day supply OneTouch Verio strips RxNorm: 1 test Miscellaneous TID as needed 01/22/2015 06/27/2017 Inactive BD Pen Mini subcutaneous RxNorm: 1 SQ daily 01/21/2015 No Stop Date Active needles to fit lantus pen Lantus Solostar 100 unit/mL (3 mL) subcutaneous insulin pen RxNorm: 154668 35 u x 3 days then 40 u daily there after Unit(s) SQ QPM 201401/21/2015 Inactive please use for next fill 90 day supply glyburide 5 mg tablet RxNorm: 113317 1 Tablet(s) PO BID 201401/17/2015 Inactive enalapril maleate 10 mg tablet RxNorm: 308412 1 Tablet(s) PO daily 11/11/2014 11/10/2014 Inactive atorvastatin 40 mg tablet RxNorm: 234360 1 Tablet(s) PO daily 11/11/2014 11/10/2014 Inactive Lantus Solostar 100 unit/mL (3 mL) subcutaneous insulin pen RxNorm: 563359 30 Unit(s) SQ QPM 11/11/2014 01/20/2015 Inactive atorvastatin 40 mg tablet RxNorm: 435142 1 Tablet(s) PO daily 11/11/2014 11/05/2015 Inactive enalapril maleate 10 mg tablet RxNorm: 055520 1 Tablet(s) PO daily 11/11/2014 11/05/2015 Inactive BD Pen Mini subcutaneous RxNorm: 1 SQ daily No Start Date 01/20/2015 Inactive needles to fit lantus pen glyburide 5 mg tablet RxNorm: 032873 1 Tablet(s) PO daily No Start Date [...] Observation Code Item Item Code Result Date Microalbumin Zut008 MicroAlb <0.7 mg/dL 06/13/2017 Urinalysis Ord28 U-Color [...] 30.9 pg 06/13/2017 Cbc With Differential Ord2 [place]% 9.1 % 06/13/2017 Cbc With Differential Ord2 [...] 1.81 K/ul 06/13/2017 Cbc With Differential Ord2 [place] ABS# 0.8 K/ul 06/13/2017 Cbc With Differential Ord2 Eos ABS# 0.1 K/ul 06/13/2017 Cbc With Differential Ord2 Baso ABS# 0.0 K/ul 06/13/2017 Lipid Ord30 CHOL 138 mg/dL 06/13/2017 Lipid Ord30 HDL 58.0 mg/dl 06/13/2017 Lipid Ord30 TRIG 83 mg/dL 06/13/2017 Lipid Ord30 LDL 63 mg/dL 06/13/2017 Lipid Ord30 C/HDL 2.4 Ratio 06/13/2017 Comp Metabolic Scs031 NA 140 mEq/L 06/13/2017 Comp Metabolic Ujq584 K 4.6 mEq/L 06/13/2017 Comp Metabolic Kep249 CL 105 mEq/L 06/13/2017 Comp Metabolic Omn036 CO2 28.0 mEq/L 06/13/2017 Comp Metabolic Nbe402 ANION GAP 12 06/13/2017 Comp Metabolic Dhp224 GLUCOSE 126 mg/dL 06/13/2017 Comp Metabolic Iwg984 Creat 0.8 mg/dL 06/13/2017 Comp Metabolic Rjx945 eGFR 104 ml/min/1.73m2 06/13/2017 Comp Metabolic Orx990 BUN 14 mg/dL 06/13/2017 Comp Metabolic Juj612 B/C Ratio 17.7 Ratio 06/13/2017 Comp Metabolic Pfb571 CALCIUM 9.4 mg/dL 06/13/2017 Comp Metabolic Csd860 ALK PHOS 74 U/L 06/13/2017 Comp Metabolic Wbr576 AST(SGOT) 19 U/L 06/13/2017 Comp Metabolic Vhh199 ALT(SGPT) 22 U/L 06/13/2017 Comp Metabolic Ljc177 BILI T 1.2 mg/dL 06/13/2017 Comp Metabolic Wew444 ALBUMIN 4.5 g/dL 06/13/2017 Comp Metabolic Urw456 TPRO 6.6 g/dL 06/13/2017 Comp Metabolic Aey869 GLOB 2.1 g/dL 06/13/2017 Comp Metabolic Hrm765 A/G Ratio 2.1 Ratio 06/13/2017 Comp Metabolic Dza373 Osmo 281 mOsmo 06/13/2017 %Hba1C Gbm271 % HbA1c 82111-5 7.6 % 06/13/2017 %Hba1C Hlu913 Gluc Ave 171 mg/dL 06/13/2017 Tsh Ord6 hTSH II 2.04 uIU/mL 09/14/2016 Comp Metabolic Njn539 NA 138 mEq/L 09/14/2016 Comp Metabolic Brw235 K 4.5 mEq/L 09/14/2016 Comp Metabolic Rfu056 CL 103 mEq/L 09/14/2016 Comp Metabolic Fib135 CO2 29.0 mEq/L 09/14/2016 Comp Metabolic Tqn066 ANION GAP 11 09/14/2016 Comp Metabolic Rba911 GLUCOSE 234 mg/dL 09/14/2016 Comp Metabolic Dbb165 Creat 0.9 mg/dL 09/14/2016 Comp Metabolic Vfy490 eGFR 86 ml/min/1.73m2 09/14/2016 Comp Metabolic Erj793 BUN 16 mg/dL 09/14/2016 Comp Metabolic Hat505 B/C Ratio 17.2 Ratio 09/14/2016 Comp Metabolic Nmb015 CALCIUM 9.0 mg/dL 09/14/2016 Comp Metabolic Wch377 ALK PHOS 69 U/L 09/14/2016 Comp Metabolic Dwy461 AST(SGOT) 21 U/L 09/14/2016 Comp Metabolic Mzb848 ALT(SGPT) 26 U/L 09/14/2016 Comp Metabolic Tdu683 BILI T 1.1 mg/dL 09/14/2016 Comp Metabolic Vxr345 ALBUMIN 4.2 g/dL 09/14/2016 Comp Metabolic Ujh804 TPRO 6.2 g/dL 09/14/2016 Comp Metabolic Inj280 GLOB 2.0 g/dL 09/14/2016 Comp Metabolic Lbv075 A/G Ratio 2.1 Ratio 09/14/2016 Comp Metabolic Fkp575 Osmo 284 mOsmo 09/14/2016 Cbc With Differential [...] 31.4 pg 09/14/2016 Cbc With Differential Ord2 [place]% 8.5 % 09/14/2016 Cbc With Differential Ord2 Eos% 0.6 % 09/14/2016 Cbc With Differential Ord2 MCHC 34.2 pg 09/14/2016 Cbc With Differential Ord2 PLT 192 K/ul 09/14/2016 Cbc With Differential Ord2 Baso% 0.3 % 09/14/2016 Cbc With Differential Ord2 RDW 14.3 % 09/14/2016 Cbc With Differential Ord2 Neut ABS# 4.45 K/ul 09/14/2016 Cbc With Differential Ord2 Lymph ABS# 1.59 K/ul 09/14/2016 Cbc With Differential Ord2 [place] ABS# 0.6 K/ul 09/14/2016 Cbc With Differential Ord2 Eos ABS# 0.0 K/ul 09/14/2016 Cbc With Differential Ord2 Baso ABS# 0.0 K/ul 09/14/2016 Lipid Ord30 CHOL 133 mg/dL 09/14/2016 Lipid Ord30 HDL 66.0 mg/dl 09/14/2016 Lipid Ord30 TRIG 50 mg/dL 09/14/2016 Lipid Ord30 LDL 57 mg/dL 09/14/2016 Lipid Ord30 C/HDL 2.0 Ratio 09/14/2016 %Hba1C Yhq468 % HbA1c 21310-2 7.2 % 09/14/2016 %Hba1C Ilh898 Gluc Ave 160 mg/dL 09/14/2016 %Hba1C Gje580 % HbA1c 61623-0 7.3 % 02/23/2016 %Hba1C Vze947 Gluc Ave 163 mg/dL 02/23/2016 Comp Metabolic Stp292 NA 137 mEq/L 11/24/2015 Comp Metabolic Dzl593 K 4.1 mEq/L 11/24/2015 Comp Metabolic Ggl284 CL 102 mEq/L 11/24/2015 Comp Metabolic Tai761 CO2 28.0 mEq/L 11/24/2015 Comp Metabolic Ghx084 ANION GAP 11 11/24/2015 Comp Metabolic Tfm993 GLUCOSE 102 mg/dL 11/24/2015 Comp Metabolic Zqx126 Creat 0.8 mg/dL 11/24/2015 Comp Metabolic Fwq082 eGFR 98 ml/min/1.73m2 11/24/2015 Comp Metabolic Bxj725 BUN 17 mg/dL 11/24/2015 Comp Metabolic Dni477 B/C Ratio 20.5 Ratio 11/24/2015 Comp Metabolic Tuz617 CALCIUM 8.8 mg/dL 11/24/2015 Comp Metabolic Xbb310 ALK PHOS 61 U/L 11/24/2015 Comp Metabolic Ksa556 AST(SGOT) 23 U/L 11/24/2015 Comp Metabolic Jof746 ALT(SGPT) 24 U/L 11/24/2015 Comp Metabolic Hgr031 BILI T 1.1 mg/dL 11/24/2015 Comp Metabolic Gcl674 ALBUMIN 4.0 g/dL 11/24/2015 Comp Metabolic Gzi422 TPRO 6.2 g/dL 11/24/2015 Comp Metabolic Xis937 GLOB 2.2 g/dL 11/24/2015 Comp Metabolic Pqd187 A/G Ratio 1.8 Ratio 11/24/2015 Comp Metabolic Pee665 Osmo 276 mOsmo 11/24/2015 %Hba1C Hno716 % HbA1c 50343-3 10.2 % 11/24/2015 %Hba1C Joc894 Gluc Ave 246 mg/dL 11/24/2015 Cbc With [...] 14.4 % 11/24/2015 Cbc With Differential Ord2 [place]% 12.1 % 11/24/2015 Cbc With Differential Ord2 MCH 30.9 pg 11/24/2015 Cbc With Differential Ord2 Eos% 1.2 % 11/24/2015 Cbc With Differential Ord2 MCHC 34.0 pg 11/24/2015 Cbc With Differential Ord2 Baso% 0.3 % 11/24/2015 Cbc With Differential Ord2 PLT 216 K/ul 11/24/2015 Cbc With Differential Ord2 RDW 13.6 % 11/24/2015 Cbc With Differential Ord2 Neut ABS# 5.61 K/ul 11/24/2015 Cbc With Differential Ord2 Lymph ABS# 1.12 K/ul 11/24/2015 Cbc With Differential Ord2 [place] ABS# 0.9 K/ul 11/24/2015 Cbc With Differential [...] Ord30 C/HDL 2.2 Ratio 11/24/2015 Comp Metabolic Ofq099 NA 140 mEq/L 01/17/2015 Comp Metabolic Pfn455 K 4.3 mEq/L 01/17/2015 Comp Metabolic Axi945 CL 104 mEq/L 01/17/2015 Comp Metabolic Euo122 CO2 27.0 mEq/L 01/17/2015 Comp Metabolic Jtp232 ANION GAP 13 01/17/2015 Comp Metabolic Xgw511 GLUCOSE 146 mg/dL 01/17/2015 Comp Metabolic Qkx425 Creat 0.8 mg/dL 01/17/2015 Comp Metabolic Zlp382 eGFR 97 ml/min/1.73m2 01/17/2015 Comp Metabolic Bob758 BUN 14 mg/dL 01/17/2015 Comp Metabolic Fvj237 B/C Ratio 16.7 Ratio 01/17/2015 Comp Metabolic Fep657 CALCIUM 9.5 mg/dL 01/17/2015 Comp Metabolic Zid132 ALK PHOS 70 U/L 01/17/2015 Comp Metabolic Nir528 AST(SGOT) 19 U/L 01/17/2015 Comp Metabolic Tjx400 ALT(SGPT) 27 U/L 01/17/2015 Comp Metabolic Vlc542 BILI T 1.3 mg/dL 01/17/2015 Comp Metabolic Mqx801 ALBUMIN 4.3 g/dL 01/17/2015 Comp Metabolic Csk504 TPRO 6.7 g/dL 01/17/2015 Comp Metabolic Ibb502 GLOB 2.4 g/dL 01/17/2015 Comp Metabolic Oau839 A/G Ratio 1.8 Ratio 01/17/2015 Comp Metabolic Car865 Osmo 283 mOsmo 01/17/2015 Lipid Ord30 CHOL [...] Ord6 hTSH II 1.88 uIU/mL 01/17/2015 %Hba1C Vug035 % HbA1c 70055-8 8.8 % 01/17/2015 %Hba1C Wci352 Gluc Ave 206 mg/dL 01/17/2015 Review of [...] Codes Date URINALYSIS NONAUTO W/O SCOPE CPT-4: 03174 06/13/2017 TOBACCO-USE [employer] CLERK 3-[address]: 849176799 CPT-4: G0436 11/26/2015 Vital Signs Date Vital 07/05/2018 Blood Pressure 1: 156/82 Code : 8480-6 Blood Pressure 1: 138/70 Code: 8480-6 BMI: 26.9 Code: 58653-3 Heart Rate 1: 76 bpm Height: 5'9" SpO2: 98% Weight: 182 lbs 06/13/2017 Blood Pressure 1: 136/68 Code : 8480-6 BMI: 25.8 Code : 39417-6 Heart Rate 1 : 80 bpm Height: 5'9" SpO2: 98% Weight: 175 lbs 10/12/2016 Blood Pressure 1: 154/80 Code : 8480-6 BMI: 25.5 Code : 79802-5 Heart Rate 1 : 83 bpm Height: 5'9" SpO2: 98% Weight: 173 lbs 06/23/2016 Blood Pressure 1: 132/78 Code : 8480-6 BMI: 24.4 Code : 58091-9 Heart Rate 1 : 64 bpm Height: 5'9" SpO2: 97% Weight: 165 lbs 02/25/2016 Blood Pressure 1: 134/72 Code : 8480-6 BMI: 24.4 Code : 66312-6 Heart Rate 1 : 75 bpm Height: 5'9" SpO2: 99% Weight: 165 lbs 01/14/2016 Blood Pressure 1: 140/68 Code : 8480-6 BMI: 24.8 Code : 35677-6 Heart Rate 1 : 76 bpm Height: 5'9" SpO2: 98% Weight: 168 lbs 12/10/2015 Blood Pressure 1: 134/68 Code : 8480-6 BMI: 24.8 Code : 01287-4 Heart Rate 1 : 87 bpm Height: 5'9" SpO2: 98% Weight: 168 lbs 11/26/2015 Blood Pressure 1: 160/78 Code : 8480-6 BMI: 26.1 Code : 40975-8 Heart Rate 1 : 71 bpm Height: 5'9" SpO2: 98% Weight: 177 lbs 01/22/2015 Blood Pressure 1: 138/72 Code : 8480-6 BMI: 27.3 Code : 24660-6 Heart Rate 1 : 77 bpm Height: 5'9" SpO2: 98% Weight: 185 lbs 11/11/2014 Blood Pressure 1: 132/80 Code : 8480-6 BMI: 27.2 Code : 21230-9 Heart Rate 1 : 72 bpm Height: [...] data Encounters Encounter Performer Location Codes Date ([id number]) 12904 EST. PATIENT, LEVEL IV Diagnosis: Essential (primary) hypertension[ICD10: I10] Diagnosis: Type 2 diabetes mellitus with hyperglycemia[ICD10: E11.65] Diagnosis: Mixed hyperlipidemia[ICD10: E78.2] Sammi Carrillo MD, [facility] CPT-4: 60006 07/05/2018 ([id number]) 23135 EST. PATIENT, LEVEL IV Diagnosis: Type 2 diabetes mellitus without complications[ICD10: E11.9] Diagnosis: Essential (primary) hypertension[ICD10: I10] Diagnosis: Mixed hyperlipidemia[ICD10: E78.2] Diagnosis: Dysuria[ICD10: R30.0] Sammi Carrillo MD [facility] CPT-4: 23721 06/13/2017 ([id number]) 31442 EST. PATIENT, LEVEL IV Diagnosis: Essential (primary) hypertension[ICD10: I10] Diagnosis: Type 2 diabetes mellitus with hyperglycemia[ICD10: E11.65] Sammi Carrillo MD [facility] CPT-4: 07464 10/12/2016 ([id number]) 88044 EST. PATIENT, LEVEL IV Diagnosis: Type 2 diabetes mellitus without complications[ICD10: E11.9] Diagnosis: Essential (primary) hypertension[ICD10: I10] Sammi Carrillo MD [facility] CPT-4: 50170 06/23/2016 ([id number]) 15278 EST. PATIENT, LEVEL III Diagnosis: Type 2 diabetes mellitus without complications[ICD10: E11.9] Sammi Carrillo MD [facility] CPT-4: 97355 02/25/2016 ([id number]) 77329 EST. PATIENT, LEVEL III Diagnosis: Type 2 diabetes mellitus without complications[ICD10: E11.9] Sammi Carrillo MD [facility] CPT-4: 85820 01/14/2016 ([id number]) 71848 EST. PATIENT, LEVEL III Diagnosis: Type 2 diabetes mellitus with hyperglycemia[ICD10: E11.65] Sammi Carrillo MD [facility] CPT-4: 04218 12/10/2015 ([id number]) 60114 EST. PATIENT, LEVEL IV Diagnosis: Type 2 diabetes mellitus with hyperglycemia[ICD10: E11.65] Diagnosis: Essential (primary) hypertension[ICD10: I10] Sammi Carrillo MD [facility] CPT-4: 96521 11/26/2015 ([id number]) 70625 EST. PATIENT, LEVEL IV Diagnosis: ESSENTIAL HYPERTENSION[ICD9: 401.9] Diagnosis: Diabetes mellitus out of control[ICD9: 250.02] Sammi Carrillo MD [facility] CPT-4: 67381 01/22/2015 ([id number]) OFFICE VISIT, NEW - LEVEL 4 Diagnosis: ESSENTIAL HYPERTENSION[ICD9: 401.9] Diagnosis: Diabetes mellitus out of control[ICD9: 250.02] Diagnosis: HYPERLIPIDEMIA[ICD9: 272.4] [facility] CPT- 4: 69257 11/11/2014 Plan of Care Planned Activity Notes [...] assure normal liver response to medications. 07/05/2018 Patient Education: Patient Medication Summary Completed 07/05/2018 Patient Education: Diabetes Completed 07/05/2018 Patient Education: Cholesterol Management Completed 07/05/2018 Care Plan: %Hba1C LOINC : 88629-2 Pending 07/05/2018 Care Plan: Cbc With Differential Pending 07/05/2018 Care Plan: Comp Metabolic Pending 07/05/2018 Care Plan: Lipid Pending 07/05/2018 Care Plan: Tsh Pending 07/05/2018 Care Plan: Total Psa Pending 07/05/2018 Visit Plan: Diabetes Mellitus - uncertain [...] negative. 06/13/2017 Appointment: Sammi Carrillo WPtel: [phone] [facility] (15 min) Moderate 06/13/2017 Patient Education: Patient Medication Summary Completed 06/13/2017 Appointment: Sammi Carrillo WPtel: [phone] [facility] (15 min) Moderate 02/09/2017 Visit Plan: Diabetes [...] home. 10/12/2016 [phone] ([facility]) Moderate 10/12/2016 Patient Education: [...] home. 06/23/2016 Appointment: Sammi Carrillo WPtel: [phone] [facility] (15 min) Moderate 06/23/2016 Patient Education: [...] controlled. 02/25/2016 Appointment: Sammi Carrillo WPtel: [phone] [facility] (15 min) Moderate 02/25/2016 Patient Education: Patient Medication Summary Completed 02/25/2016 Visit Plan: DM - not yet optimally controlled - but it has been improving based on recent FSBS reports - recommended to continue with decrease in carbs, improved dietary control and improved fluid intake. 01/14/2016 App[facility]ment: [facility] [phone] [facility] (15 min) Moderate 01/14/2016 Patient Education: Patient [...] at home. 11/26/2015 Appointment: Sammi Carrillo [facility]el: [facility] [place] (15 min) Moderate 11/26/2015 Patient Education: Patient Medication Summary Completed 11/26/2015 Patient Education: Smoking and Tobacco Addiction Completed 11/26/2015 Patient Education: Hypertension Completed 11/26/2015 Patient Education: Patient Medication Summary Completed 11/20/2015 Appointment: Sammi Carrillo [facility]Ptel: [facility] [place] (15 min) Moderate 03/05/2015 Visit Plan: [...] at home. 01/22/2015 Appointment[facility] [phone] [facility] Follow up 01/22/2015 Patient Education: Patient Medication [...] to medications. 11/11/2014 App[facility]ment: [facility] [phone] [facility] [place] New Patient 11/11/2014 Patient [...]
--- OUTSIDE RECORDS SUMMARY | 2018-10-20 14:54 | XMS REPORT | CCD ---
Author Author Sammi Carrillo Organization Sammi Carrillo MD, [facility] Address [address] [place] [address] Phone Care Team Providers Care Microbiology Technologist Name Role Phone PP Unavailable CCM Unavailable Summary Purpose Interface Exchange Insurance Providers Payer name Policy type / Coverage type Covered republican ID Effective Begin Date Effective End Date [employer] Commercial Insurance [id number] Unknown Unknown WPS Medicare Part B Commercial Insurance [id number] Unknown Unknown Family history Mother Diagnosis Age At Onset Hypertension Unknown Father Diagnosis Age At Onset Cancer Unknown Social History Social History Element Codes Description Effective Dates Tobacco history SNOMED CT: 561356257 Currently uses smokeless tobacco Chews 11/26/2015 Frequency of drinks SNOMED CT: 543160529 14 drinks per week About 2 beers per night- More on Fridays11/26/2015 Marital status Unknown Myah 11/11/2014 Number of children Unknown 3 11/11/[address]: 028009 Currently drinks alcohol beer 11/11/2014 Allergies, Adverse Reactions, Alerts Substance Reaction Codes Entered Date Inactivated Date Status * NO KNOWN FOOD ALLERGIES Unknown 11/11/2014 No Inactive Date Active * NO KNOWN DRUG ALLERGIES Unknown 11/11/2014 No Inactive Date Active Past Medical History Illness Codes Condition Status Onset Date Resolved Date Diabetes Unknown Active 06/13/2017 Unknown Dysuria ICD-9: 788.1 ICD-10: R30.0 Active 06/13/2017 Unknown Essential (primary) hypertension ICD-9: 401.1 ICD-10: I10 Active 06/23/2016 Unknown Mixed hyperlipidemia ICD-9: 272.2 ICD-10: E78.2 Active 06/13/2017 Unknown Type 2 diabetes mellitus without complications ICD-9: 250.00 ICD-10: E11.9 Active 02/24/2016 Unknown Type 2 diabetes mellitus with hyperglycemia ICD-9: 250.02 ICD-10: E11.65 Active 11/10/2014 Unknown Essential (primary) hypertension ICD-9: 401.9 ICD-10: I10 Active 11/10/2014 Unknown Hyperlipidemia, unspecified ICD-9: 272.4 ICD-10: E78.5 Active 11/10/2014 Unknown ESSENTIAL HYPERTENSION ICD-9: 401.9 Active 11/10/2014 Unknown Hyperlipidemia Unknown Active 11/11/2014 Unknown Hypertension Unknown Active 11/11/2014 Unknown Diabetes mellitus out of control ICD-9: 250.02 Active 2014 Unknown HYPERLIPIDEMIA ICD-9: 272.4 Active 11/10/2014 Unknown Problems Condition Codes Effective Dates Condition Status Diabetes Unknown 06/13/2017 Active Dysuria ICD-9: 788.1 ICD-10: R30.0 06/13/2017 Active Essential (primary) hypertension ICD-9: 401.1 ICD-10: I10 06/23/2016 Active Mixed hyperlipidemia ICD-9: 272.2 ICD-10: E78.2 06/13/2017 Active Type 2 diabetes mellitus without complications ICD-9: 250.00 ICD-10: E11.9 02/24/2016 Active Type 2 diabetes mellitus with hyperglycemia ICD-9: 250.02 ICD-10: E11.65 11/10/2014 Active Essential (primary) hypertension ICD-9: 401.9 ICD-10: I10 11/10/2014 Active Hyperlipidemia, unspecified ICD-9: 272.4 ICD-10: E78.5 11/10/2014 Active ESSENTIAL HYPERTENSION ICD-9: 401.9 11/10/2014 Active Hyperlipidemia Unknown 11/11/2014 Active Hypertension Unknown 11/11/2014 Active Diabetes mellitus out of control ICD-9: 250.02 11/10/2014 Active HYPERLIPIDEMIA ICD-9: 272.4 11/10/2014 Active Medications Medication Codes Instructions Start Date Stop Date Status Fill Instructions atorvastatin 40 mg tablet RxNorm: 473583 TAKE ONE TABLET BY MOUTH DAILY 06/15/2018 12/11/2018 Active Lantus Solostar U-100 Insulin 100 unit/mL (3 mL) subcutaneous pen RxNorm: 575332 INJECT 30 UNITS UNDER THE SKIN TWO TIMES A DAY 05/0408/11/2018 Active Lantus Solostar U-100 Insulin 100 unit/mL (3 mL) subcutaneous pen RxNorm: 683033 INJECT 30 UNITS UNDER THE SKIN TWO TIMES A DAY 01/2004/29/2018 Inactive atorvastatin 40 mg tablet RxNorm: 997478 TAKE ONE TABLET BY MOUTH DAILY 12/12/2017 06/09/2018 Inactive Lantus Solostar U-100 Insulin 100 unit/mL (3 mL) subcutaneous pen RxNorm: 038197 INJECT 30 UNITS UNDER THE SKIN TWO TIMES A DAY 11/0701/19/2018 Inactive enalapril maleate 10 mg tablet RxNorm: 050319 1 Tablet(s) PO daily TAKE ONE TABLET BY MOUTH DAILY 10/11/20172018 Active enalapril maleate 10 mg tablet RxNorm: 533042 TAKE ONE TABLET BY MOUTH DAILY 07/11/2017 10/10/2017 Inactive enalapril maleate 10 mg tablet RxNorm: 440142 1 Tablet(s) PO daily TAKE ONE TABLET BY MOUTH DAILY 07/11/20172017 Inactive Lantus Solostar 100 unit/mL (3 mL) subcutaneous insulin pen RxNorm: 115884 INJECT 55 UNITS UNDER THE SKIN DAILY 07/05/2017 12/13/2017 Inactive Request already responded to by other means (e.g. phone or fax) OneTouch Verio strips RxNorm: USE TO TEST BLOOD SUGAR DAILY 11/06/2017 Inactive Lantus Solostar U-100 Insulin 100 unit/mL (3 mL) subcutaneous pen RxNorm: 493247 30 Unit(s) SQ BID 06/28/201707/2017 Inactive Lantus Solostar 100 unit/mL (3 mL) subcutaneous insulin pen RxNorm: 761656 30 Unit(s) BID 06/14/2017 06/17/2017 Inactive Lantus Solostar 100 unit/mL (3 mL) subcutaneous insulin pen RxNorm: 567022 INJECT 55 UNITS UNDER THE SKIN DAILY 03/09/2017 06/13/2017 Inactive enalapril maleate 10 mg tablet RxNorm: 381910 TAKE ONE TABLET BY MOUTH DAILY 12/31/2016 06/28/2017 Inactive atorvastatin 40 mg tablet RxNorm: 118807 TAKE ONE TABLET BY MOUTH DAILY 11/19/2016 11/13/2017 Inactive Lantus Solostar 100 unit/mL (3 mL) subcutaneous insulin pen RxNorm: 345004 55 Unit(s) daily 10/12/2016 03/08/2017 Inactive Lantus Solostar 100 unit/mL (3 mL) subcutaneous insulin pen RxNorm: 950961 INJECT 40 UNITS UNDER THE SKIN EVERY EVENING 07/22/2016 10/11/2016 Inactive enalapril maleate 10 mg tablet RxNorm: 920213 TAKE ONE TABLET BY MOUTH DAILY 03/23/2016 12/17/2016 Inactive Lantus Solostar 100 unit/mL (3 mL) subcutaneous insulin pen RxNorm: 192767 40 Unit(s) SQ QPM 01/14/2016 07/21/2016 Inactive atorvastatin 40 mg tablet RxNorm: 770151 1 Tablet(s) PO daily 11/20/2015 11/13/2016 Inactive Lantus Solostar 100 unit/mL (3 mL) subcutaneous insulin pen RxNorm: 875464 40 Unit(s) SQ QPM 01/22/2015 01/13/2016 Inactive please use for next fill 90 day supply OneTouch Verio strips RxNorm: 1 test Miscellaneous TID as needed 01/22/2015 06/27/2017 Inactive BD Pen Mini subcutaneous RxNorm: 1 SQ daily 01/21/2015 No Stop Date Active needles to fit lantus pen Lantus Solostar 100 unit/mL (3 mL) subcutaneous insulin pen RxNorm: 013441 35 u x 3 days then 40 u daily there after Unit(s) SQ QPM 201401/21/2015 Inactive please use for next fill 90 day supply glyburide 5 mg tablet RxNorm: 646975 1 Tablet(s) PO BID 201401/17/2015 Inactive enalapril maleate 10 mg tablet RxNorm: 764690 1 Tablet(s) PO daily 11/11/2014 11/10/2014 Inactive atorvastatin 40 mg tablet RxNorm: 042590 1 Tablet(s) PO daily 11/11/2014 11/10/2014 Inactive Lantus Solostar 100 unit/mL (3 mL) subcutaneous insulin pen RxNorm: 586986 30 Unit(s) SQ QPM 11/11/2014 01/20/2015 Inactive atorvastatin 40 mg tablet RxNorm: 094023 1 Tablet(s) PO daily 11/11/2014 11/05/2015 Inactive enalapril maleate 10 mg tablet RxNorm: 724709 1 Tablet(s) PO daily 11/11/2014 11/05/2015 Inactive BD Pen Mini subcutaneous RxNorm: 1 SQ daily No Start Date 01/20/2015 Inactive needles to fit lantus pen glyburide 5 mg tablet RxNorm: 105500 1 Tablet(s) PO daily No Start Date 11/10/2014 Inactive Medication Administered No Medication Administered data Immunizations No Immunization data Assessments Condition Codes Effective Dates Mixed hyperlipidemia ICD-10: E78.2 ICD-9: 272.2 06/13/2017 Type 2 diabetes mellitus without complications ICD-10: E11.9 ICD-9: 250.00 06/13/2017 Dysuria ICD-10: R30.0 ICD-9: 788.1 06/13/2017 Essential (primary) hypertension ICD-10: I10 ICD-9: 401.1 06/13/2017 Type 2 diabetes mellitus with hyperglycemia ICD-10: E11.65 ICD-9: 250.02 10/12/2016 Essential (primary) hypertension ICD-10: I10 ICD-9: 401.9 11/26/2015 Hyperlipidemia, unspecified ICD-10: E78.5 ICD-9: 272.4 11/20/2015 ESSENTIAL HYPERTENSION ICD-9: 401.9 01/22 Diabetes mellitus out of control ICD-9: 250.02 01/22/2015 HYPERLIPIDEMIA ICD-9: 272.4 11/11/2014 Reason For Visit Reason For Visit Effective Dates Notes diabetes mellitus 06/13/2017 diabetes mellitus 10/12/2016 diabetes mellitus 06/23/2016 diabetes mellitus 02/25/2016 diabetes mellitus 01/14/2016 diabetes mellitus 12/10/2015 diabetes mellitus 11/26/2015 diabetes mellitus 01/22/2015 diabetes mellitus 11/11/2014 Results Observation Observation Code Item Item Code Result Date Microalbumin Okv040 MicroAlb <0.7 mg/dL 06/13/2017 Urinalysis Ord28 U-Color [...] 30.9 pg 06/13/2017 Cbc With Differential Ord2 [place]% 9.1 % 06/13/2017 Cbc With Differential Ord2 [...] 1.81 K/ul 06/13/2017 Cbc With Differential Ord2 [place] ABS# 0.8 K/ul 06/13/2017 Cbc With Differential Ord2 Eos ABS# 0.1 K/ul 06/13/2017 Cbc With Differential Ord2 Baso ABS# 0.0 K/ul 06/13/2017 Lipid Ord30 CHOL 138 mg/dL 06/13/2017 Lipid Ord30 HDL 58.0 mg/dl 06/13/2017 Lipid Ord30 TRIG 83 mg/dL 06/13/2017 Lipid Ord30 LDL 63 mg/dL 06/13/2017 Lipid Ord30 C/HDL 2.4 Ratio 06/13/2017 Comp Metabolic Vwj404 NA 140 mEq/L 06/13/2017 Comp Metabolic Vvh775 K 4.6 mEq/L 06/13/2017 Comp Metabolic Nao200 CL 105 mEq/L 06/13/2017 Comp Metabolic Xkw870 CO2 28.0 mEq/L 06/13/2017 Comp Metabolic Vxh132 ANION GAP 12 06/13/2017 Comp Metabolic Jby604 GLUCOSE 126 mg/dL 06/13/2017 Comp Metabolic Sqx691 Creat 0.8 mg/dL 06/13/2017 Comp Metabolic Sdv663 eGFR 104 ml/min/1.73m2 06/13/2017 Comp Metabolic Hxd789 BUN 14 mg/dL 06/13/2017 Comp Metabolic Rvs625 B/C Ratio 17.7 Ratio 06/13/2017 Comp Metabolic Wks836 CALCIUM 9.4 mg/dL 06/13/2017 Comp Metabolic Kgj957 ALK PHOS 74 U/L 06/13/2017 Comp Metabolic Twy151 AST(SGOT) 19 U/L 06/13/2017 Comp Metabolic Vfm800 ALT(SGPT) 22 U/L 06/13/2017 Comp Metabolic Zcx020 BILI T 1.2 mg/dL 06/13/2017 Comp Metabolic Zuy779 ALBUMIN 4.5 g/dL 06/13/2017 Comp Metabolic Hhu509 TPRO 6.6 g/dL 06/13/2017 Comp Metabolic Bej110 GLOB 2.1 g/dL 06/13/2017 Comp Metabolic Bjc329 A/G Ratio 2.1 Ratio 06/13/2017 Comp Metabolic Ywf636 Osmo 281 mOsmo 06/13/2017 %Hba1C Nvk618 % HbA1c 01631-7 7.6 % 06/13/2017 %Hba1C Elp962 Gluc Ave 171 mg/dL 06/13/2017 Tsh Ord6 hTSH II 2.04 uIU/mL 09/14/2016 Comp Metabolic Mip497 NA 138 mEq/L 09/14/2016 Comp Metabolic Ycp715 K 4.5 mEq/L 09/14/2016 Comp Metabolic Qkw799 CL 103 mEq/L 09/14/2016 Comp Metabolic Wlm588 CO2 29.0 mEq/L 09/14/2016 Comp Metabolic Iqr978 ANION GAP 11 09/14/2016 Comp Metabolic Bnw070 GLUCOSE 234 mg/dL 09/14/2016 Comp Metabolic Ovg422 Creat 0.9 mg/dL 09/14/2016 Comp Metabolic Yau962 eGFR 86 ml/min/1.73m2 09/14/2016 Comp Metabolic Jnq776 BUN 16 mg/dL 09/14/2016 Comp Metabolic Ehi169 B/C Ratio 17.2 Ratio 09/14/2016 Comp Metabolic Blp015 CALCIUM 9.0 mg/dL 09/14/2016 Comp Metabolic Ztx256 ALK PHOS 69 U/L 09/14/2016 Comp Metabolic Rmk379 AST(SGOT) 21 U/L 09/14/2016 Comp Metabolic Voa143 ALT(SGPT) 26 U/L 09/14/2016 Comp Metabolic Vcd560 BILI T 1.1 mg/dL 09/14/2016 Comp Metabolic Qix713 ALBUMIN 4.2 g/dL 09/14/2016 Comp Metabolic Hbq664 TPRO 6.2 g/dL 09/14/2016 Comp Metabolic Lbi843 GLOB 2.0 g/dL 09/14/2016 Comp Metabolic Cyq515 A/G Ratio 2.1 Ratio 09/14/2016 Comp Metabolic Vpv129 Osmo 284 mOsmo 09/14/2016 Cbc With Differential [...] 31.4 pg 09/14/2016 Cbc With Differential Ord2 [place]% 8.5 % 09/14/2016 Cbc With Differential Ord2 [...] 1.59 K/ul 09/14/2016 Cbc With Differential Ord2 [place] ABS# 0.6 K/ul 09/14/2016 Cbc With Differential Ord2 Eos ABS# 0.0 K/ul 09/14/2016 Cbc With Differential Ord2 Baso ABS# 0.0 K/ul 09/14/2016 Lipid Ord30 CHOL 133 mg/dL 09/14/2016 Lipid Ord30 HDL 66.0 mg/dl 09/14/2016 Lipid Ord30 TRIG 50 mg/dL 09/14/2016 Lipid Ord30 LDL 57 mg/dL 09/14/2016 Lipid Ord30 C/HDL 2.0 Ratio 09/14/2016 %Hba1C Yis729 % HbA1c 49332-2 7.2 % 09/14/2016 %Hba1C Jqk416 Gluc Ave 160 mg/dL 09/14/2016 %Hba1C Fjs838 % HbA1c 52904-6 7.3 % 02/23/2016 %Hba1C Qxf251 Gluc Ave 163 mg/dL 02/23/2016 Comp Metabolic Yjo336 NA 137 mEq/L 11/24/2015 Comp Metabolic Zrl366 K 4.1 mEq/L 11/24/2015 Comp Metabolic Rtv503 CL 102 mEq/L 11/24/2015 Comp Metabolic Eyy260 CO2 28.0 mEq/L 11/24/2015 Comp Metabolic Qzc521 ANION GAP 11 11/24/2015 Comp Metabolic Ksd137 GLUCOSE 102 mg/dL 11/24/2015 Comp Metabolic Dhp060 Creat 0.8 mg/dL 11/24/2015 Comp Metabolic Afl970 eGFR 98 ml/min/1.73m2 11/24/2015 Comp Metabolic Vio624 BUN 17 mg/dL 11/24/2015 Comp Metabolic Bfc449 B/C Ratio 20.5 Ratio 11/24/2015 Comp Metabolic Kzx960 CALCIUM 8.8 mg/dL 11/24/2015 Comp Metabolic Rcx627 ALK PHOS 61 U/L 11/24/2015 Comp Metabolic Jdp660 AST(SGOT) 23 U/L 11/24/2015 Comp Metabolic Lyg316 ALT(SGPT) 24 U/L 11/24/2015 Comp Metabolic Ikf645 BILI T 1.1 mg/dL 11/24/2015 Comp Metabolic Jbp319 ALBUMIN 4.0 g/dL 11/24/2015 Comp Metabolic Cns344 TPRO 6.2 g/dL 11/24/2015 Comp Metabolic Zdk636 GLOB 2.2 g/dL 11/24/2015 Comp Metabolic Tfq033 A/G Ratio 1.8 Ratio 11/24/2015 Comp Metabolic Lzh849 Osmo 276 mOsmo 11/24/2015 %Hba1C Hud875 % HbA1c 53217-2 10.2 % 11/24/2015 %Hba1C Gry437 Gluc Ave 246 mg/dL 11/24/2015 Cbc With [...] 30.9 pg 11/24/2015 Cbc With Differential Ord2 [place]% 12.1 % 11/24/2015 Cbc With Differential Ord2 Eos% 1.2 % 11/24/2015 Cbc With Differential Ord2 MCHC 34.0 pg 11/24/2015 Cbc With Differential Ord2 Baso% 0.3 % 11/24/2015 Cbc With Differential Ord2 PLT 216 K/ul 11/24/2015 Cbc With Differential Ord2 RDW 13.6 % 11/24/2015 Cbc With Differential Ord2 Neut ABS# 5.61 K/ul 11/24/2015 Cbc With Differential Ord2 Lymph ABS# 1.12 K/ul 11/24/2015 Cbc With Differential Ord2 [place] ABS# 0.9 K/ul 11/24/2015 Cbc With Differential [...] Ord30 C/HDL 2.2 Ratio 11/24/2015 Comp Metabolic Gki015 NA 140 mEq/L 01/17/2015 Comp Metabolic Mxy410 K 4.3 mEq/L 01/17/2015 Comp Metabolic Cxr462 CL 104 mEq/L 01/17/2015 Comp Metabolic Ibn033 CO2 27.0 mEq/L 01/17/2015 Comp Metabolic Efb661 ANION GAP 13 01/17/2015 Comp Metabolic Nua499 GLUCOSE 146 mg/dL 01/17/2015 Comp Metabolic Oru165 Creat 0.8 mg/dL 01/17/2015 Comp Metabolic Wrt795 eGFR 97 ml/min/1.73m2 01/17/2015 Comp Metabolic Vem406 BUN 14 mg/dL 01/17/2015 Comp Metabolic Men069 B/C Ratio 16.7 Ratio 01/17/2015 Comp Metabolic Qwu723 CALCIUM 9.5 mg/dL 01/17/2015 Comp Metabolic Gvq057 ALK PHOS 70 U/L 01/17/2015 Comp Metabolic Qex975 AST(SGOT) 19 U/L 01/17/2015 Comp Metabolic Nbf884 ALT(SGPT) 27 U/L 01/17/2015 Comp Metabolic Soi948 BILI T 1.3 mg/dL 01/17/2015 Comp Metabolic Vte063 ALBUMIN 4.3 g/dL 01/17/2015 Comp Metabolic Dbv337 TPRO 6.7 g/dL 01/17/2015 Comp Metabolic Sqj012 GLOB 2.4 g/dL 01/17/2015 Comp Metabolic Rcy923 A/G Ratio 1.8 Ratio 01/17/2015 Comp Metabolic Uxh138 Osmo 283 mOsmo 01/17/2015 Lipid Ord30 CHOL [...] Ord6 hTSH II 1.88 uIU/mL 01/17/2015 %Hba1C Cnc666 % HbA1c 27770-8 8.8 % 01/17/2015 %Hba1C Wva636 Gluc Ave 206 mg/dL 01/17/2015 Review of Systems System Result Effective Dates Constitutional No recent illness 2016 Constitutional No [...] Codes Date URINALYSIS NONAUTO W/O SCOPE CPT-4: 95285 06/13/2017 TOBACCO-USE [employer] 3-[address]: 898382010 CPT-4: G0436 11/26/2015 Vital Signs Date Vital 06/13/2017 Blood Pressure 1: 136/68 Code : 8480-6 BMI: 25.8 Code : 90847-3 Heart Rate 1 : 80 bpm Height: 5'9" SpO2: 98% Weight: 175 lbs 10/12/2016 Blood Pressure 1: 154/80 Code : 8480-6 BMI: 25.5 Code : 92689-2 Heart Rate 1 : 83 bpm Height: 5'9" SpO2: 98% Weight: 173 lbs 06/23/2016 Blood Pressure 1: 132/78 Code : 8480-6 BMI: 24.4 Code : 11510-9 Heart Rate 1 : 64 bpm Height: 5'9" SpO2: 97% Weight: 165 lbs 02/25/2016 Blood Pressure 1: 134/72 Code : 8480-6 BMI: 24.4 Code : 10703-6 Heart Rate 1 : 75 bpm Height: 5'9" SpO2: 99% Weight: 165 lbs 01/14/2016 Blood Pressure 1: 140/68 Code : 8480-6 BMI: 24.8 Code : 76049-0 Heart Rate 1 : 76 bpm Height: 5'9" SpO2: 98% Weight: 168 lbs 12/10/2015 Blood Pressure 1: 134/68 Code : 8480-6 BMI: 24.8 Code : 68733-2 Heart Rate 1 : 87 bpm Height: 5'9" SpO2: 98% Weight: 168 lbs 11/26/2015 Blood Pressure 1: 160/78 Code : 8480-6 BMI: 26.1 Code : 59300-0 Heart Rate 1 : 71 bpm Height: 5'9" SpO2: 98% Weight: 177 lbs 01/22/2015 Blood Pressure 1: 138/72 Code : 8480-6 BMI: 27.3 Code : 99222-2 Heart Rate 1 : 77 bpm Height: 5'9" SpO2: 98% Weight: 185 lbs 11/11/2014 Blood Pressure 1: 132/80 Code : 8480-6 BMI: 27.2 Code : 19328-5 Heart Rate 1 : 72 bpm Height: 5'9" Weight: 184 lbs Functional Status No Functional Status data History of Present Illness Symptom Name Status Result Effective Date Notes diabetes mellitus Quality insulin dependent 06/13/2017 None [...] data Encounters Encounter Performer Location Codes Date ([id number]) 27409 EST. PATIENT, LEVEL IV Diagnosis: Type 2 diabetes mellitus without complications[ICD10: E11.9] Diagnosis: Essential (primary) hypertension[ICD10: I10] Diagnosis: Mixed hyperlipidemia[ICD10: E78.2] Diagnosis: Dysuria[ICD10: R30.0] Sammi Carrillo MD, [facility] CPT-4: 24408 06/13/2017 ([id number]) 55901 EST. PATIENT, LEVEL IV Diagnosis: Essential (primary) hypertension[ICD10: I10] Diagnosis: Type 2 diabetes mellitus with hyperglycemia[ICD10: E11.65] Sammi Carrillo MD , [facility] CPT-4: 59975 10/12/2016 ([id number]) 94218 EST. PATIENT, LEVEL IV Diagnosis: Type 2 diabetes mellitus without complications[ICD10: E11.9] Diagnosis: Essential (primary) hypertension[ICD10: I10] Sammi Carrillo MD, [facility] CPT-4: 49754 06/23/2016 ([id number]) 13313 EST. PATIENT, LEVEL III Diagnosis: Type 2 diabetes mellitus without complications[ICD10: E11.9] Sammi Carrillo MD, [facility] CPT-4: 48384 02/25/2016 ([id number] 72656 EST. PATIENT, LEVEL III Diagnosis: Type 2 diabetes mellitus without complications[ICD10: E11.9] Sammi Carrillo MD, [facility] CPT-4: 55165 01/14/2016 ([id number]) 50685 EST. PATIENT, LEVEL III Diagnosis: Type 2 diabetes mellitus with hyperglycemia[ICD10: E11.65] DORETHA Castro MD CPT-4: 97832 12/10/2015 ([id number]) 76143 EST. PATIENT, LEVEL IV Diagnosis: Type 2 diabetes mellitus with hyperglycemia[ICD10: E11.65] Diagnosis: Essential (primary) hypertension[ICD10: I10] Sammi Carrillo MD, DORETHA CPT-4: 84854 11/26/2015 ([id number]) 39828 EST. PATIENT, LEVEL IV Diagnosis: ESSENTIAL HYPERTENSION[ICD9: 401.9] Diagnosis: Diabetes mellitus out of control[ICD9: 250.02] Sammi Carrillo MD, [facility] CPT-4: 46823 01/22/2015 ([id number]) OFFICE VISIT, NEW - LEVEL 4 Diagnosis: ESSENTIAL HYPERTENSION[ICD9: 401.9] Diagnosis: Diabetes mellitus out of control[ICD9: 250.02] Diagnosis: HYPERLIPIDEMIA[ICD9: 272.4] Sammi Carrillo MD, [facility] CPT- 4: 37618 11/11/2014 Plan of Care Planned Activity Notes Codes Status Date Visit Plan: Diabetes Mellitus - uncertain of [...] - negative. 06/13/2017 Appointment: Sammi Carrillo WPtel: [phone] [facility] [place] (15 min) Moderate 06/13/2017 Patient Education: Patient Medication Summary Completed 06/13/2017 Appointment: Sammi Carrillo WPtel: [phone] [facility] [place] (15 min) Moderate 02/09/2017 Visit Plan: [...] at home. 10/12/2016 Appointment: Sammi Carrillo WPtel: [phone] [facility] [place] (15 min) Moderate 10/12/2016 Patient Education: [...] blood pressure readings at home. 06/23/2016 [phone] ([facility]) Moderate 06/23/2016 Patient Education: Patient [...] less controlled. 02/25/2016 Appointment: Sammi Carrillo WPtel: [phone] [facility] (15 min) Moderate 02/25/2016 Patient Education: Patient Medication Summary Completed 02/25/2016 Visit Plan: DM - not yet optimally controlled - but it has been improving based on recent FSBS reports - recommended to continue with decrease in carbs, improved dietary control and improved fluid intake. 01/14/2016 Appointment: [phone] [facility] (15 min) Moderate 01/14/2016 Patient Education: Patient [...] at home. 11/26/2015 Appointment: Sammi Carrillo WPtel: [phone] [facility] (15 min) Moderate 11/26/2015 Patient Education: Patient Medication Summary Completed 11/26/2015 Patient Education: Smoking and Tobacco Addiction Completed 11/26/2015 Patient Education: Hypertension Completed 11/26/2015 Patient Education: Patient Medication Summary Completed 11/20/2015 Appointment: Sammi Carrillo WPtel: [phone] [facility] (15 min) Moderate 03/05/2015 Visit Plan: Diabetes [...] at home. 01/22/2015 Appointment: Sammi Carrillo WPtel: [phone] [facility] [place] Follow up 01/22/2015 Patient Education: Patient [...] to medications. 11/11/2014 Appointment: Sammi Carrillo [facility]Ptel: [facility] [place] ([place] New Patient 11/11/2014 Patient Education: [...]
--- OUTSIDE RECORDS SUMMARY | 2018-10-20 14:55 | XMS REPORT | CCD ---
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 Name Role Phone PP Unavailable CCM Unavailable Summary Purpose Interface Exchange Insurance Providers Payer name Policy type / Coverage type Covered alliance party ID Effective Begin Date Effective End Date BookingBug Commercial Insurance [id number] Unknown Unknown WPS Medicare Part B Commercial Insurance [id number] Unknown Unknown Family history Mother Diagnosis Age At Onset Hypertension Unknown Father Diagnosis Age At Onset Cancer Unknown Social History Social History Element Codes Description Effective Dates Tobacco history SNOMED CT: 640888234 Currently uses smokeless tobacco Chews 11/26/2015 Frequency of drinks SNOMED CT: 121289112 14 drinks per week About 2 beers per night- More on Fridays11/26/2015 Marital status Unknown Myah 11/11/2014 Number of children Unknown 3 11/11/[address]: 296348 Currently drinks alcohol beer 11/11/2014 Allergies, Adverse [...] 100 unit/mL (3 mL) subcutaneous pen RxNorm: 814349 INJECT 30 UNITS UNDER THE SKIN TWO TIMES A DAY 05/0408/11/2018 Active Lantus Solostar U-100 Insulin 100 unit/mL (3 mL) subcutaneous pen RxNorm: 792272 INJECT 30 UNITS UNDER THE SKIN TWO TIMES A DAY 01/2004/29/2018 Inactive atorvastatin 40 mg tablet RxNorm: 088555 TAKE ONE TABLET BY MOUTH DAILY 12/12/2017 06/09/2018 Active Lantus Solostar U-100 Insulin 100 unit/mL (3 mL) subcutaneous pen RxNorm: 799297 INJECT 30 UNITS UNDER THE SKIN TWO TIMES A DAY 11/0701/19/2018 Inactive enalapril maleate 10 mg tablet RxNorm: 792461 1 Tablet(s) PO daily TAKE ONE TABLET BY MOUTH DAILY 10/11/20172018 Active enalapril maleate 10 mg tablet RxNorm: 154978 TAKE ONE TABLET BY MOUTH DAILY 07/11/2017 10/10/2017 Inactive enalapril maleate 10 mg tablet RxNorm: 173549 1 Tablet(s) PO daily TAKE ONE TABLET BY MOUTH DAILY 07/11/20172017 Inactive Lantus Solostar 100 unit/mL (3 mL) subcutaneous insulin pen RxNorm: 288555 INJECT 55 UNITS UNDER THE SKIN DAILY 07/05/2017 12/13/2017 Inactive Request already responded to by other means (e.g. phone or fax) OneTouch Verio strips RxNorm: USE TO TEST BLOOD SUGAR DAILY 11/06/2017 Inactive Lantus Solostar U-100 Insulin 100 unit/mL (3 mL) subcutaneous pen RxNorm: 747923 30 Unit(s) SQ BID 06/28/201707/2017 Inactive Lantus Solostar 100 unit/mL (3 mL) subcutaneous insulin pen RxNorm: 598919 30 Unit(s) BID 06/14/2017 06/17/2017 Inactive Lantus Solostar 100 unit/mL (3 mL) subcutaneous insulin pen RxNorm: 783072 INJECT 55 UNITS UNDER THE SKIN DAILY 03/09/2017 06/13/2017 Inactive enalapril maleate 10 mg tablet RxNorm: 933535 TAKE ONE TABLET BY MOUTH DAILY 12/31/2016 06/28/2017 Inactive atorvastatin 40 mg tablet RxNorm: 167249 TAKE ONE TABLET BY MOUTH DAILY 11/19/2016 11/13/2017 Inactive Lantus Solostar 100 unit/mL (3 mL) subcutaneous insulin pen RxNorm: 359583 55 Unit(s) daily 10/12/2016 03/08/2017 Inactive Lantus Solostar 100 unit/mL (3 mL) subcutaneous insulin pen RxNorm: 969431 INJECT 40 UNITS UNDER THE SKIN EVERY EVENING 07/22/2016 10/11/2016 Inactive enalapril maleate 10 mg tablet RxNorm: 162500 TAKE ONE TABLET BY MOUTH DAILY 03/23/2016 12/17/2016 Inactive Lantus Solostar 100 unit/mL (3 mL) subcutaneous insulin pen RxNorm: 232772 40 Unit(s) SQ QPM 01/14/2016 07/21/2016 Inactive atorvastatin 40 mg tablet RxNorm: 267128 1 Tablet(s) PO daily 11/20/2015 11/13/2016 Inactive Lantus Solostar 100 unit/mL (3 mL) subcutaneous insulin pen RxNorm: 864366 40 Unit(s) SQ QPM 01/22/2015 01/13/2016 Inactive please use for next fill 90 day supply OneTouch Verio strips RxNorm: 1 test Miscellaneous TID as needed 01/22/2015 06/27/2017 Inactive BD Pen Mini subcutaneous RxNorm: 1 SQ daily 01/21/2015 No Stop Date Active needles to fit lantus pen Lantus Solostar 100 unit/mL (3 mL) subcutaneous insulin pen RxNorm: 653359 35 u x 3 days then 40 u daily there after Unit(s) SQ QPM 201401/21/2015 Inactive please use for next fill 90 day supply glyburide 5 mg tablet RxNorm: 647644 1 Tablet(s) PO BID 201401/17/2015 Inactive enalapril maleate 10 mg tablet RxNorm: 521674 1 Tablet(s) PO daily 11/11/2014 11/10/2014 Inactive atorvastatin 40 mg tablet RxNorm: 020868 1 Tablet(s) PO daily 11/11/2014 11/10/2014 Inactive Lantus Solostar 100 unit/mL (3 mL) subcutaneous insulin pen RxNorm: 965664 30 Unit(s) SQ QPM 11/11/2014 01/20/2015 Inactive atorvastatin 40 mg tablet RxNorm: 255222 1 Tablet(s) PO daily 11/11/2014 11/05/2015 Inactive enalapril maleate 10 mg tablet RxNorm: 795277 1 Tablet(s) PO daily 11/11/2014 11/05/2015 Inactive BD Pen Mini subcutaneous RxNorm: 1 SQ daily No Start Date 01/20/2015 Inactive needles to fit lantus pen glyburide 5 mg tablet RxNorm: 519524 1 Tablet(s) PO daily No Start Date [...] Code Item Item Code Result Date Microalbumin Iwz163 MicroAlb <0.7 mg/dL 06/13/2017 Urinalysis Ord28 U-Color [...] 41.6 % 06/13/2017 Cbc With Differential Ord2 Lymph% 21.7 % 06/13/2017 Cbc With Differential Ord2 MCV 90.4 fl 06/13/2017 Cbc With Differential Ord2 MCH 30.9 pg 06/13/2017 Cbc With Differential Ord2 Robertson% 9.1 % 06/13/2017 Cbc With Differential Ord2 [...] 1.81 K/ul 06/13/2017 Cbc With Differential Ord2 Robertson ABS# 0.8 K/ul 06/13/2017 Cbc With Differential Ord2 Eos ABS# 0.1 K/ul 06/13/2017 Cbc With Differential Ord2 Baso ABS# 0.0 K/ul 06/13/2017 Lipid Ord30 CHOL 138 mg/dL 06/13/2017 Lipid Ord30 HDL 58.0 mg/dl 06/13/2017 Lipid Ord30 TRIG 83 mg/dL 06/13/2017 Lipid Ord30 LDL 63 mg/dL 06/13/2017 Lipid Ord30 C/HDL 2.4 Ratio 06/13/2017 Comp Metabolic Zkj634 NA 140 mEq/L 06/13/2017 Comp Metabolic Obg079 K 4.6 mEq/L 06/13/2017 Comp Metabolic Kwl071 CL 105 mEq/L 06/13/2017 Comp Metabolic Lfk454 CO2 28.0 mEq/L 06/13/2017 Comp Metabolic Qnt879 ANION GAP 12 06/13/2017 Comp Metabolic Mhn076 GLUCOSE 126 mg/dL 06/13/2017 Comp Metabolic Sjm911 Creat 0.8 mg/dL 06/13/2017 Comp Metabolic Wja206 eGFR 104 ml/min/1.73m2 06/13/2017 Comp Metabolic Wwv750 BUN 14 mg/dL 06/13/2017 Comp Metabolic Rmj326 B/C Ratio 17.7 Ratio 06/13/2017 Comp Metabolic Sjz578 CALCIUM 9.4 mg/dL 06/13/2017 Comp Metabolic Srv034 ALK PHOS 74 U/L 06/13/2017 Comp Metabolic Ijz992 AST(SGOT) 19 U/L 06/13/2017 Comp Metabolic Ndl118 ALT(SGPT) 22 U/L 06/13/2017 Comp Metabolic Rhc088 BILI T 1.2 mg/dL 06/13/2017 Comp Metabolic Cll552 ALBUMIN 4.5 g/dL 06/13/2017 Comp Metabolic Hos838 TPRO 6.6 g/dL 06/13/2017 Comp Metabolic Gof785 GLOB 2.1 g/dL 06/13/2017 Comp Metabolic Rvm103 A/G Ratio 2.1 Ratio 06/13/2017 Comp Metabolic Kwk380 Osmo 281 mOsmo 06/13/2017 %Hba1C Tdp798 % HbA1c 06739-1 7.6 % 06/13/2017 %Hba1C Cci948 Gluc Ave 171 mg/dL 06/13/2017 Tsh Ord6 hTSH II 2.04 uIU/mL 09/14/2016 Comp Metabolic Qfl591 NA 138 mEq/L 09/14/2016 Comp Metabolic Qsh453 K 4.5 mEq/L 09/14/2016 Comp Metabolic Jsv482 CL 103 mEq/L 09/14/2016 Comp Metabolic Nee853 CO2 29.0 mEq/L 09/14/2016 Comp Metabolic Net799 ANION GAP 11 09/14/2016 Comp Metabolic Jin540 GLUCOSE 234 mg/dL 09/14/2016 Comp Metabolic Gqm596 Creat 0.9 mg/dL 09/14/2016 Comp Metabolic Urj932 eGFR 86 ml/min/1.73m2 09/14/2016 Comp Metabolic Omc537 BUN 16 mg/dL 09/14/2016 Comp Metabolic Bav136 B/C Ratio 17.2 Ratio 09/14/2016 Comp Metabolic Afs283 CALCIUM 9.0 mg/dL 09/14/2016 Comp Metabolic Phm248 ALK PHOS 69 U/L 09/14/2016 Comp Metabolic Oaf597 AST(SGOT) 21 U/L 09/14/2016 Comp Metabolic Bqf218 ALT(SGPT) 26 U/L 09/14/2016 Comp Metabolic Gyv587 BILI T 1.1 mg/dL 09/14/2016 Comp Metabolic Ern851 ALBUMIN 4.2 g/dL 09/14/2016 Comp Metabolic Jtw842 TPRO 6.2 g/dL 09/14/2016 Comp Metabolic Atz971 GLOB 2.0 g/dL 09/14/2016 Comp Metabolic Yvt623 A/G Ratio 2.1 Ratio 09/14/2016 Comp Metabolic Cxa860 Osmo 284 mOsmo 09/14/2016 Cbc With Differential Ord2 WBC 6.67 K/ul 09/14/2016 Cbc With Differential Ord2 RBC 4.42 M/ul 09/14/2016 Cbc With Differential Ord2 HGB 13.9 g/dl 09/14/2016 Cbc With Differential Ord2 HCT 40.6 % 09/14/2016 Cbc With Differential Ord2 Neut% 66.8 % 09/14/2016 Cbc With Differential Ord2 Lymph% 23.8 % 09/14/2016 Cbc With Differential Ord2 MCV 91.9 fl 09/14/2016 Cbc With Differential Ord2 Robertson% 8.5 % 09/14/2016 Cbc With Differential Ord2 MCH 31.4 pg 09/14/2016 Cbc With Differential Ord2 Eos% [...] 1.59 K/ul 09/14/2016 Cbc With Differential Ord2 Robertson ABS# 0.6 K/ul 09/14/2016 Cbc With Differential Ord2 Eos ABS# 0.0 K/ul 09/14/2016 Cbc With Differential Ord2 Baso ABS# 0.0 K/ul 09/14/2016 Lipid Ord30 CHOL 133 mg/dL 09/14/2016 Lipid Ord30 HDL 66.0 mg/dl 09/14/2016 Lipid Ord30 TRIG 50 mg/dL 09/14/2016 Lipid Ord30 LDL 57 mg/dL 09/14/2016 Lipid Ord30 C/HDL 2.0 Ratio 09/14/2016 %Hba1C Ska827 % HbA1c 94557-2 7.2 % 09/14/2016 %Hba1C Tlv549 Gluc Ave 160 mg/dL 09/14/2016 %Hba1C Jtc940 % HbA1c 90010-5 7.3 % 02/23/2016 %Hba1C Wtp609 Gluc Ave 163 mg/dL 02/23/2016 Comp Metabolic Ybz772 NA 137 mEq/L 11/24/2015 Comp Metabolic Sea890 K 4.1 mEq/L 11/24/2015 Comp Metabolic Ses691 CL 102 mEq/L 11/24/2015 Comp Metabolic Bkr138 CO2 28.0 mEq/L 11/24/2015 Comp Metabolic Okd795 ANION GAP 11 11/24/2015 Comp Metabolic Qyk801 GLUCOSE 102 mg/dL 11/24/2015 Comp Metabolic Mvy837 Creat 0.8 mg/dL 11/24/2015 Comp Metabolic Fxg751 eGFR 98 ml/min/1.73m2 11/24/2015 Comp Metabolic Gfx766 BUN 17 mg/dL 11/24/2015 Comp Metabolic Vyb318 B/C Ratio 20.5 Ratio 11/24/2015 Comp Metabolic Fkx613 CALCIUM 8.8 mg/dL 11/24/2015 Comp Metabolic Ufc776 ALK PHOS 61 U/L 11/24/2015 Comp Metabolic Rkz590 AST(SGOT) 23 U/L 11/24/2015 Comp Metabolic Wyd594 ALT(SGPT) 24 U/L 11/24/2015 Comp Metabolic Vid498 BILI T 1.1 mg/dL 11/24/2015 Comp Metabolic Dja892 ALBUMIN 4.0 g/dL 11/24/2015 Comp Metabolic Jzl668 TPRO 6.2 g/dL 11/24/2015 Comp Metabolic Gye764 GLOB 2.2 g/dL 11/24/2015 Comp Metabolic Gjv618 A/G Ratio 1.8 Ratio 11/24/2015 Comp Metabolic Vdj528 Osmo 276 mOsmo 11/24/2015 %Hba1C Vti044 % HbA1c 34007-0 10.2 % 11/24/2015 %Hba1C Yds898 Gluc Ave 246 mg/dL 11/24/2015 Cbc With Differential Ord2 WBC 7.78 K/ul 11/24/2015 Cbc With Differential Ord2 RBC 4.70 M/ul 11/24/2015 Cbc With Differential Ord2 HGB 14.5 g/dl 11/24/2015 Cbc With Differential Ord2 HCT 42.7 % 11/24/2015 Cbc With Differential Ord2 Neut% 72.0 % 11/24/2015 Cbc With Differential Ord2 Lymph% 14.4 % 11/24/2015 Cbc With Differential Ord2 MCV 90.9 fl 11/24/2015 Cbc With Differential Ord2 MCH 30.9 pg 11/24/2015 Cbc With Differential Ord2 Robertson% 12.1 % 11/24/2015 Cbc With Differential Ord2 [...] 1.12 K/ul 11/24/2015 Cbc With Differential Ord2 Robertson ABS# 0.9 K/ul 11/24/2015 Cbc With Differential Ord2 Eos ABS# 0.1 K/ul 11/24/2015 Cbc With Differential Ord2 Baso ABS# 0.0 K/ul 11/24/2015 Cbc With Differential Ord2 New Analyzer Notice Please note new ref ranges starting 1-13-2016 due to implemntation of new five part differential hematolgy analyzer. 11/24/2015 Tsh Ord6 hTSH II 1.40 uIU/mL 11/24/2015 Lipid Ord30 CHOL 137 mg/dL 11/24/2015 Lipid Ord30 HDL 63.0 mg/dl 11/24/2015 Lipid Ord30 TRIG 63 mg/dL 11/24/2015 Lipid Ord30 LDL 61 mg/dL 11/24/2015 Lipid Ord30 C/HDL 2.2 Ratio 11/24/2015 Comp Metabolic Drf554 NA 140 mEq/L 01/17/2015 Comp Metabolic Euk389 K 4.3 mEq/L 01/17/2015 Comp Metabolic Qny359 CL 104 mEq/L 01/17/2015 Comp Metabolic Iep757 CO2 27.0 mEq/L 01/17/2015 Comp Metabolic Bdz614 ANION GAP 13 01/17/2015 Comp Metabolic Lto017 GLUCOSE 146 mg/dL 01/17/2015 Comp Metabolic Ujn879 Creat 0.8 mg/dL 01/17/2015 Comp Metabolic Gjt141 eGFR 97 ml/min/1.73m2 01/17/2015 Comp Metabolic Aza961 BUN 14 mg/dL 01/17/2015 Comp Metabolic Dyo327 B/C Ratio 16.7 Ratio 01/17/2015 Comp Metabolic Unc606 CALCIUM 9.5 mg/dL 01/17/2015 Comp Metabolic Wgj151 ALK PHOS 70 U/L 01/17/2015 Comp Metabolic Zcp021 AST(SGOT) 19 U/L 01/17/2015 Comp Metabolic Sec853 ALT(SGPT) 27 U/L 01/17/2015 Comp Metabolic Pun938 BILI T 1.3 mg/dL 01/17/2015 Comp Metabolic Zqx445 ALBUMIN 4.3 g/dL 01/17/2015 Comp Metabolic Zlh510 TPRO 6.7 g/dL 01/17/2015 Comp Metabolic Bjl011 GLOB 2.4 g/dL 01/17/2015 Comp Metabolic Opr012 A/G Ratio 1.8 Ratio 01/17/2015 Comp Metabolic Eka879 Osmo 283 mOsmo 01/17/2015 Lipid Ord30 CHOL [...] Ord6 hTSH II 1.88 uIU/mL 01/17/2015 %Hba1C Hmo755 % HbA1c 14190-0 8.8 % 01/17/2015 %Hba1C Jjs370 Gluc Ave 206 mg/dL 01/17/2015 Review of [...] Codes Date URINALYSIS NONAUTO W/O SCOPE CPT-4: 22160 06/13/2017 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 3-[address]: 520207644 CPT-4: G0436 11/26/2015 Vital Signs Date Vital 06/13/2017 Blood Pressure 1: 136/68 Code : 8480-6 BMI: 25.8 Code : 48937-7 Heart Rate 1 : 80 bpm Height: 5'9" SpO2: 98% Weight: 175 lbs 10/12/2016 Blood Pressure 1: 154/80 Code : 8480-6 BMI: 25.5 Code : 94865-5 Heart Rate 1 : 83 bpm Height: 5'9" SpO2: 98% Weight: 173 lbs 06/23/2016 Blood Pressure 1: 132/78 Code : 8480-6 BMI: 24.4 Code : 67308-8 Heart Rate 1 : 64 bpm Height: 5'9" SpO2: 97% Weight: 165 lbs 02/25/2016 Blood Pressure 1: 134/72 Code : 8480-6 BMI: 24.4 Code : 31251-4 Heart Rate 1 : 75 bpm Height: 5'9" SpO2: 99% Weight: 165 lbs 01/14/2016 Blood Pressure 1: 140/68 Code : 8480-6 BMI: 24.8 Code : 30763-4 Heart Rate 1 : 76 bpm Height: 5'9" SpO2: 98% Weight: 168 lbs 12/10/2015 Blood Pressure 1: 134/68 Code : 8480-6 BMI: 24.8 Code : 89608-2 Heart Rate 1 : 87 bpm Height: 5'9" SpO2: 98% Weight: 168 lbs 11/26/2015 Blood Pressure 1: 160/78 Code : 8480-6 BMI: 26.1 Code : 98158-6 Heart Rate 1 : 71 bpm Height: 5'9" SpO2: 98% Weight: 177 lbs 01/22/2015 Blood Pressure 1: 138/72 Code : 8480-6 BMI: 27.3 Code : 37468-9 Heart Rate 1 : 77 bpm Height: 5'9" SpO2: 98% Weight: 185 lbs 11/11/2014 Blood Pressure 1: 132/80 Code : 8480-6 BMI: 27.2 Code : 11171-2 Heart Rate 1 : 72 bpm Height: [...] data Encounters Encounter Performer Location Codes Date ([id number]) [id number] EST. PATIENT, LEVEL IV Diagnosis: Type 2 diabetes mellitus without complications[ICD10: E11.9] Diagnosis: Essential (primary) hypertension[ICD10: I10] Diagnosis: Mixed hyperlipidemia[ICD10: E78.2] Diagnosis: Dysuria[ICD10: R30.0] Sammi Carrillo MD, [facility] CPT-4: 21112 06/13/2017 [id number]) [id number] EST. PATIENT, LEVEL IV Diagnosis: Essential (primary) hypertension[ICD10: I10] Diagnosis: Type 2 diabetes mellitus with hyperglycemia[ICD10: E11.65] Sammi Carrillo MD , [facility] CPT-4: 35085 10/12/2016 ([id number]) 21272 EST. PATIENT, LEVEL IV Diagnosis: Type 2 diabetes mellitus without complications[ICD10: E11.9] Diagnosis: Essential (primary) hypertension[ICD10: I10] [facility] CPT-4: 43888 06/23/2016 ([id number]) 38907 EST. PATIENT, LEVEL III Diagnosis: Type 2 diabetes mellitus without complications[ICD10: E11.9] [facility] CPT-4: 37781 02/25/2016 [id number]) [id number] EST. PATIENT, LEVEL III Diagnosis: Type 2 diabetes mellitus without complications[ICD10: E11.9] [facility] CPT-4: 87129 01/14/2016 ([id number]) 92269 EST. PATIENT, LEVEL III Diagnosis: Type 2 diabetes mellitus with hyperglycemia[ICD10: E11.65] Sammi Carrillo MD , [facility] CPT-4: 80459 12/10/2015 ([id number]) 53703 EST. PATIENT, LEVEL IV Diagnosis: Type 2 diabetes mellitus with hyperglycemia[ICD10: E11.65] Diagnosis: Essential (primary) hypertension[ICD10: I10] DORET[facility] Castro MD CPT-4: 99675 11/26/2015 ([id number]) 41533 EST. PATIENT, LEVEL IV Diagnosis: ESSENTIAL HYPERTENSION[ICD9: 401.9] Diagnosis: Diabetes mellitus out of control[ICD9: 250.02] DORETHA Castro MD CPT-4: 09116 01/22/2015 ([id number]) OFFICE VISIT, NEW - LEVEL 4 Diagnosis: ESSENTIAL HYPERTENSION[ICD9: 401.9] Diagnosis: Diabetes mellitus out of control[ICD9: 250.02] Diagnosis: HYPERLIPIDEMIA[ICD9: 272.4] Sammi Carrillo MD, [facility] CPT- 4: 39420 11/11/2014 Plan of Care Planned Activity Notes [...] - check ua - negative. 06/13/2017 Appointment: Ruth Ann Carrilloy WPtel: [phone] [facility] (15 min) Moderate 06/13/2017 Patient Education: Patient Medication Summary Completed 06/13/2017 Appointment: Sammi Carrillo WPtel: [phone] [facility] (15 min) Moderate 02/09/2017 Visit Plan: Diabetes [...] home. 10/12/2016 Appointment: Marta Sammi WPtel: [phone] [facility] [place] (15 min) Moderate 10/12/2016 Patient Education: [...] at home. 06/23/2016 Appointment: Sammi Carrillo WPtel: [phone] [facility] [place] (15 min) Moderate 06/23/2016 Patient Education: [...] controlled. 02/25/2016 Appointment: Sammi Carrillo WPtel: [phone] [facility] (15 min) Moderate 02/25/2016 Patient Education: Patient Medication Summary Completed 02/25/2016 Visit Plan: DM - not yet optimally controlled - but it has been improving based on recent FSBS reports - recommended to continue with decrease in carbs, improved dietary control and improved fluid intake. 01/14/2016 App[facility]ment: [phone] (15 min) Moderate 01/14/2016 Patient Education: [...] home. 11/26/2015 Appointment: Sammi Carrillo WPtel: [phone] [facility] (15 min) Moderate 11/26/2015 Patient Education: Patient Medication Summary Completed 11/26/2015 Patient Education: Smoking and Tobacco Addiction Completed 11/26/2015 Patient Education: Hypertension Completed 11/26/2015 Patient Education: Patient Medication Summary Completed 11/20/2015 Appointment: Sammi Carrillo WPtel: [phone] [facility] (15 min) Moderate 03/05/2015 Visit Plan: [...] at home. 01/22/2015 Appointment: Sammi Carrillo WPtel: [phone] [facility] [place] Follow up 01/22/2015 Patient Education: Patient [...] to medications. 11/11/2014 Appointment: Sammi Carrillo WPtel: [facility] [place] ([place] New Patient 11/11/2014 Patient [...] bring the blood glucose log to dr carrilol's office for our review take the glyburide [...]
[2018-10-20] MEDS ORDERED: TETANUS,DIPTH,PERTUSS P/F (BOOSTRIX) 0.5 ML VIAL IM ONE (15:00)
[2018-10-20] MEDS ORDERED: LIDOCAINE 1% INJ 20 ML 20 ML VIAL INJ ONE (15:00)
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
--- NOTE | 2018-10-20 16:04 | Diagnostic Imaging Report ---
INDICATION: Forearm laceration. EXAMINATION: Three views of the left wrist were obtained. FINDINGS: There is calcific arterial sclerosis. There is some degenerative change of the radiocarpal joint and distal radioulnar joint. There is some joint space narrowing of the first carpometacarpal joint. 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 There is no fracture, dislocation or radiopaque foreign object seen. Dictated by: Dictated on workstation # [id number]
[2018-10-20] MEDS ORDERED: ACHD5005 PO (16:34)
[2018-10-20] MEDS ORDERED: CEPH-507 PO (16:34)
--- NOTE | 2018-10-20 16:40 | NUR ---
ARM SLING APPLIED TO LEFT ARM. ICE PACK APPLIED TO LEFT FOREARM.
[2018-10-20 16:41] VITALS: BP 148/84
== END 2018-10-20 16:49 | disposition home or self-care (01) ==
LOC: EDUNIT# 14:41 → ER 14:42
DX: S66.922A Laceration of unspecified muscle, fascia and tendon at wrist and hand level, left hand, initial encounter (principal); S61.502A Unspecified open wound of left wrist, initial encounter; E78.00 Pure hypercholesterolemia, unspecified; E11.9 Type 2 diabetes mellitus without complications; Z23 Encounter for immunization; Z79.4 Long term (current) use of insulin; W31.2XXA Contact with powered woodworking and forming machines, initial encounter
CPT/HCPCS: 73110; 90715

== ENCOUNTER 2019-08-23 17:58 | Emergency (ER) | payer MEDICARE, OTHER ==
[~2019-08-23] VITALS: Ht 172 cm; Wt 85.0 kg
[~2019-08-23 17:58] MED LIST changes: +ACHD5005 PO; +CEPH-507 PO
--- NOTE | 2019-08-23 18:00 | NUR ---
PT REFUSED C-COLLAR.
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
[2019-08-23 20:23] VITALS: BP 187/81
[2019-08-23] MEDS ORDERED: METH-313 PO (20:23)
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
== END 2019-08-23 20:23 | disposition home or self-care (01) ==
LOC: EDUNIT# 17:58 → ER 17:59
DX: S09.90XA Unspecified injury of head, initial encounter (principal); E11.9 Type 2 diabetes mellitus without complications; Z79.4 Long term (current) use of insulin; V49.40XA Driver injured in collision with unspecified motor vehicles in traffic accident, initial encounter
CPT/HCPCS: 70450; 71045; 72125

== ENCOUNTER 2023-04-29 03:37 | Emergency (ER) | payer MEDICARE, OTHER ==
[~2023-04-29] VITALS: Ht 172.7 cm; Wt 79.8 kg
[~2023-04-29 03:37] MED LIST changes: +METH-313 PO
--- NOTE | 2023-04-29 03:46 | ED Abdominal Pain ---
General Stated Complaint: ABD PX,DIARRHEA Source of Information: Patient Exam Limitations: No Limitations (ELIZABETH VALLECILLO MD) History of Present Illness Date Seen by Provider: Apr 29, 2023 Time Seen by Provider: 03:46 Initial Comments Patient is a 72-year-old male who presents to the emergency room with a chief complaint of 4-1/2 days of abdominal discomfort, abdominal distention, nausea vomiting, diarrhea. He states symptoms started around 2:30 in the morning on Tuesday and have been intermittent and worsening since that time. He takes medication for diabetes as well as high blood pressure, arthritis. He has been able to eat occasionally. He did vomit in the bathroom in the waiting room just prior to coming back into the department. He reports no fevers or chills. He has normal urination. He denies chest pain shortness of breath. He is very rarely a little dizzy when he stands up. He denies being on antibiotics recently he thinks the last time was about a month ago. His at home currently has a little upper respiratory tract infection. He is not flu or COVID vaccinated. He is not currently nauseated after vomiting in the ED waiting room. He has had no prior abdominal surgeries. Not really having pain at the moment. Timing/Duration: 4-5 Days Severity/Quality: Moderate, Full Location: Generalized Abdomen Radiation: No Radiation Activities at Onset: Sleeping Associated Symptoms: Heartburn, Nausea/Vomiting, Swelling/Mass in Abdomen (ELIZABETH VALLECILLO MD) Allergies and Home Medications Allergies Coded Allergies: No Known Drug Allergies (Unverified , 03/17/11) Patient Home Medication List Home Medication List Reviewed: Yes (ELIZABETH VALLECILLO MD) Cephalexin (Keflex) 500 Mg Capsule, 500 MG PO Q8H Prescribed by: MADELIN MACKENZIE on 10/20/18 1634 Enalapril Maleate (Vasotec Po) 5 Mg Tab, 5 MG PO DAILY, (Reported) Entered as Reported by: AYDEN DERAS on 03/17/11 214 Glyburide (Glyburide) 5 Mg Tablet, 2 EACH PO DAILY, (Reported) Entered as Reported by: ELIZABETH CONROY on 03/22/11 1618 Hydrocodone Bit/Acetaminophen (Lortab 5 Mg Tablet) 1 Tab Tab, 1 EACH PO Q6H Prescribed by: MADELIN MACKENZIE on 10/20/18 1634 Insulin Glargine,Hum.rec.anlog (Lantus Solostar) 300 Unit/3 Ml Insuln.pen, 10 UNITS SQ HS, (Reported) Entered as Reported by: AYDEN DERAS on 03/17/112147 Methocarbamol (Robaxin-750) 750 Mg Tablet, 750 MG PO TID Prescribed by: GIOVANNI SAAVEDRA on 08/23/192022 Review of Systems Review of Systems Constitutional: see HPI EENTM: No Symptoms Reported Gastrointestinal: Abdomen Distended; Denies Blood Streaked Stools; Diarrhea, Nausea; Denies Rectal Bleeding; Vomiting Genitourinary: No Symptoms Reported Musculoskeletal: no symptoms reported Skin: no symptoms reported Psychiatric/Neurological: No Symptoms Reported (ELIZABETH VALLECILLO MD) Past Mjcueie-Ezturt-Uzkbxg Hx Immunizations Up To Date Tetanus Booster (TDap): Less than 5yrs PED Vaccines UTD: Yes (ELIZABETH VALLECILLO MD) Seasonal Allergies Seasonal Allergies: No (ELIZABETH VALLECILLO MD) Past Medical History Surgeries: No Respiratory: No Cardiac: Yes High Cholesterol, Hypotension Neurological: No Reproductive Disorders: No Genitourinary: No Gastrointestinal: No Musculoskeletal: No Endocrine: Yes Diabetes, Insulin dep HEENT: No Cancer: No Psychosocial: No Integumentary: No Blood Disorders: No (ELIZABETH VALLECILLO MD) Physical Exam Vital Signs Vital Signs - First Documented 04/29/23 03:44 Temp 36.9 Pulse 95 Resp 20 B/P (MAP) 185/71 (109) Pulse Ox 96 O2 Delivery Room Air (DETAR,ADAM W DO) Vital Signs Capillary Refill : (ELIZABETH VALLECILLO MD) Height/Weight/BMI Height: 5'8.00" Weight: 176lbs. oz. 79.302677ul; 28.00 BMI Method:Actual General Appearance: WD/WN, no apparent distress, obese, other (pleasant, affable) HEENT: PERRL/EOMI, other (poor dentition) Neck: full range of motion Respiratory: lungs clear, normal breath sounds, no respiratory distress, no accessory muscle use Cardiovascular: regular rate, rhythm Gastrointestinal: soft, abnormal bowel sounds (hyperactive and tinkling), distended Extremities: normal range of motion, normal inspection, no pedal edema Neurologic/Psychiatric: alert, normal mood/affect, oriented x 3 Skin: normal color, warm/dry (ELIZABETH VALLECILLO MD) Procedures/Interventions Suture Size: 5-0 (ELIZABETH VALLECILLO MD) Progress/Results/Core Measures Results/Orders Lab Results Laboratory Tests Test 04/29/23 03:45 04/29/23 03:56 04/29/23 04:09 Range/Units Urine Color ORANGE H Urine Clarity CLOUDY H Urine pH 5.5 5-9 Urine Specific [place] >=1.030 1.016-1.022 Urine Protein 3+ H NEGATIVE Urine Glucose (UA) NEGATIVE NEGATIVE Urine Ketones 1+ H NEGATIVE Urine Nitrite NEGATIVE NEGATIVE Urine Bilirubin 1+ H NEGATIVE Urine Urobilinogen 1.0 < = 1.0 MG/DL Urine Leukocyte Esterase NEGATIVE NEGATIVE Urine RBC (Auto) NEGATIVE NEGATIVE Urine RBC NONE /HPF Urine WBC 2-5 /HPF Urine Squamous Epithelial Cells 0-2 /HPF Urine Crystals NONE /LPF Urine Bacteria RACE /HPF Urine Casts PRESENT /LPF Urine Hyaline Casts 0-2 H /LPF Urine Granular Casts 0-2 H /LPF Urine White Blood Cell Casts RARE H /LPF Urine Mucus LARGE H /LPF Urine Culture Indicated YES White Blood Count 11.6 H 4.3-11.0 10^3/uL Red Blood Count 5.00 4.30-5.52 10^6/uL Hemoglobin 15.4 13.3-17.7 g/dL Hematocrit 44 40-54 % Mean Corpuscular Volume 88 80-99 fL Mean Corpuscular Hemoglobin 31 25-34 pg Mean Corpuscular Hemoglobin Concent 35 32-36 g/dL Red Cell Distribution Width 13.4 10.0-14.5 % Platelet Count 245 130-400 10^3/uL Mean Platelet Volume 10.0 9.0-12.2 fL Immature Granulocyte % (Auto) 0 % Neutrophils (%) (Auto) 76 H 42-75 % Lymphocytes (%) (Auto) 8 L 12-44 % Monocytes (%) (Auto) 16 H 0-12 % Eosinophils (%) (Auto) 0 0-10 % Basophils (%) (Auto) 0 0-10 % Neutrophils # (Auto) 8.8 H 1.8-7.8 10^3/uL Lymphocytes # (Auto) 0.9 L 1.0-4.0 10^3/uL Monocytes # (Auto) 1.8 H 0.0-1.0 10^3/uL Eosinophils # (Auto) 0.0 0.0-0.3 10^3/uL Basophils # (Auto) 0.0 0.0-0.1 10^3/uL Immature Granulocyte # (Auto) 0.0 0.0-0.1 10^3/uL Neutrophils % (Manual) 78 % Lymphocytes % (Manual) 7 % Monocytes % (Manual) 15 % Band Neutrophils % Blood Morphology Comment NORMAL Sodium Level 141 135-145 MMOL/L Potassium Level 2.8 L 3.6-5.0 MMOL/L Chloride Level 96 L 98-107 MMOL/L Carbon Dioxide Level 28 21-32 MMOL/L Anion Gap 17 H 5-14 MMOL/L Blood Urea Nitrogen 23 H 7-18 MG/DL Creatinine 0.98 0.60-1.30 MG/DL Estimat Glomerular Filtration Rate 81 BUN/Creatinine Ratio 23 Glucose Level 115 H 70-105 MG/DL Calcium Level 9.6 8.5-10.1 MG/DL Corrected Calcium 9.4 8.5-10.1 MG/DL Total Bilirubin 2.8 H 0.1-1.0 MG/DL Aspartate Amino Transf (AST/SGOT) 26 5-34 U/L Alanine Aminotransferase (ALT/SGPT) 29 0-55 U/L Alkaline Phosphatase 85 40-136 U/L Total Protein 7.3 6.4-8.2 GM/DL Albumin 4.2 3.2-4.5 GM/DL Glucometer 130 H 70-110 MG/DL (ADAM HAAS DO) My Orders Orders - ADAM HAAS DO Small Bowel Study Only (04/29/23 09:24) Diatrizoate Meglum/Sodium 37% (Gastrogra (04/29/23 10:15) (ADAM HAAS DO) Medications Given in ED Current Medications Medications Dose Ordered Sig/Nell Route Start Time Stop Time Status Last Admin Dose Admin Diatrizoate Meglum/ Diatrizoate Sod 120 ml ONCE ONCE PO 04/29/23 10:15 04/29/23 10:17 DC 04/29/23 10:12 120 ML Iohexol 100 ml ONCE ONCE IV 04/29/23 06:30 04/29/23 06:31 DC 04/29/23 06:18 80 ML Ondansetron HCl 4 mg ONCE ONCE IVP 04/29/23 04:15 04/29/23 04:17 DC 04/29/23 04:14 4 MG Sodium Chloride 100 ml ONCE ONCE IV 04/29/23 06:30 04/29/23 06:31 DC 04/29/23 06:18 80 ML (ADAM HAAS DO) Vital Signs/I&O 04/29/23 03:44 Temp 36.9 Pulse 95 Resp 20 B/P (MAP) 185/71 (109) Pulse Ox 96 O2 Delivery Room Air (ADAM HAAS DO) Progress Progress Note : Progress Note CT returned showing cholelithiasis and reported small bowel obstruction. Spoke with Dr. Mcnulty at 826. Patient claims no prior surgeries and states he has not eaten in the last [address] done with IV contrast with Dr. Mcnulty at 0835. Patient resting comfortably has not required any pain medication. No vomiting or diarrhea. Vital signs stable. Will perform small bowel follow- through as CT reads nonobstructive gallstone in the gallbladder but small bowel obstruction despite patient being essentially asymptomatic at this time. If negative plan will be to discharge home with outpatient follow-up for cholecystectomy. If he does have a small bowel obstruction obviously patient will be admitted to the surgical services. 1226 discussed with general surgeon who looked at patient's studies and states that there is no obstruction. Will discharge patient home with antiemetics but surgeon would like to see him in clinic for follow-up for scheduled cholecystectomy. (ADAM HAAS DO) Diagnostic Imaging Diagonstic Imaging: CT (ADAM HAAS DO) CT Read Date: Apr 29, 2023 CT Results/Progress Notes PROCEDURE: CT abdomen and pelvis with contrast. TECHNIQUE: Multiple contiguous axial images were obtained through the abdomen and pelvis after administration of intravenous contrast. Auto Exposure Controls were utilized during the CT exam to meet ALARA standards for radiation dose reduction. All CT scans use one or more of the following dose optimizing techniques: automated exposure control, MA and/or KvP adjustment based on patient size and exam type or iterative reconstruction. INDICATION: Abdominal pain. No prior studies are available for comparison. The lung bases are clear of acute infiltrates. The liver demonstrates some generalized low attenuation consistent with hepatic steatosis. No liver mass is identified. There is a large stone within the gallbladder. No biliary ductal dilatation is identified. Pancreas and spleen are unremarkable. No adrenal mass is identified. Kidneys are unremarkable. Aorta is calcified but nonaneurysmal. There are significantly dilated and fluid-filled small bowel loops throughout the abdomen with transition distally consistent with small bowel obstruction. Trace free fluid in the right lower quadrant is noted. No well-formed fluid collection is seen. There is no free air. Colon is decompressed. There is generalized colonic diverticulosis but no evidence of acute diverticulitis. The bladder is unremarkable. Prostate is enlarged. IMPRESSION: 1. Cholelithiasis. 2. Dilated and fluid-filled small bowel loops with transition distally consistent with small bowel obstruction. 3. Uncomplicated diverticulosis. (ADAM HAAS DO) Consults : Consulting Physician: SIMÓN MCNULTY DO (ADAM HAAS DO) Departure Impression Primary Impression: Cholelithiasis Qualified Codes: K80.20 - Calculus of gallbladder without cholecystitis without obstruction Disposition: HOME, SELF-CARE Condition: Stable Admissions Decision to Admit/Date: Apr 29, 2023 Time/Decision to Admit Time: 08:39 (ADAM HAAS DO) Departure-Patient Inst. Referrals: MIREYA SYKES MD (PCP/Family) Primary Care Physician Patient Instructions: Gallstones (DC) Add. Discharge Instructions: Return to the emergency department immediately for return of symptoms or wors ening pain or vomiting. Follow-up with Dr. Mcnulty next week as discussed to schedule outpatient gallbladder surgery. Take nausea medication as needed. Scripts Ondansetron (Ondansetron Odt) 4 Mg Tab.rapdis 4 MG SL Q4H PRN for NAUSEA/VOMITING for 7 Days, #30 TAB Prov: ADAM HAAS DO 04/29/23 ELIZABETH VALLECILLO MD Apr 29, 2023 03:46 ADAM HAAS DO Apr 29, 2023 08:41
[2023-04-29 04:13] LABS: BASOPHILS % (AUTO) 0 % (0-10); EOSINOPHILS % (AUTO) 0 % (0-10); HEMATOCRIT 44 % (40-54); HEMOGLOBIN 15.4 g/dL (13.3-17.7); LYMPHOCYTES # (AUTO) 0.9 10^3/uL (1.0-4.0); LYMPHOCYTES % (AUTO) 8 % (12-44); MEAN CORPUSCULAR HEMOGLOBIN 31 pg (25-34); MEAN CORPUSCULAR HGB CONC 35 g/dL (32-36); MEAN CORPUSCULAR VOLUME 88 fL (80-99); MONOCYTES # (AUTO) 1.8 10^3/uL (0.0-1.0); MONOCYTES % (AUTO) 16 % (0-12); NEUTROPHILS # (AUTO) 8.8 10^3/uL (1.8-7.8); NEUTROPHILS % (AUTO) 76 % (42-75); PLATELET COUNT 245 10^3/uL (130-400); WHITE BLOOD COUNT 11.6 10^3/uL (4.3-11.0)
[2023-04-29 04:15] LABS: ALBUMIN 4.2 GM/DL (3.2-4.5); POTASSIUM 2.8 MMOL/L (3.6-5.0)
[2023-04-29] MEDS ORDERED: LACTATED RINGERS 1,000 ML 1,000 ML IV SCH ×2 (04:15→05:15)
[2023-04-29] MEDS ORDERED: ONDANSETRON INJECTION 4 MG/2 ML (SDV) IVP ONE (04:15)
[2023-04-29 04:16] LABS: CALCIUM 9.6 MG/DL (8.5-10.1)
[2023-04-29 04:18] LABS: TOTAL PROTEIN 7.3 GM/DL (6.4-8.2)
[2023-04-29 04:19] LABS: BILIRUBIN,TOTAL 2.8 MG/DL (0.1-1.0)
[2023-04-29 04:21] LABS: CREATININE SERUM 0.98 MG/DL (0.60-1.30)
[2023-04-29 04:59] LABS: BILIRUBIN,URINE 1+ (NEGATIVE); CLARITY,URINE CLOUDY; COLOR,URINE ORANGE; GLUCOSE, URINE (UA) NEGATIVE (NEGATIVE); KETONES,URINE 1+ (NEGATIVE); LEUKOCYTE ESTERASE ,URINE NEGATIVE (NEGATIVE); NITRITE,URINE NEGATIVE (NEGATIVE); PH,URINE 5.5 (5-9); PROTEIN,URINE 3+ (NEGATIVE)
[2023-04-29 05:00] LABS: BACTERIA,URINE RACE /HPF; GRANULAR CASTS,URINE 0-2 /LPF; HYALINE CASTS, URINE 0-2 /LPF; SQUAMOUS EPITHELIAL CELL,UR 0-2 /HPF; WHITE BLOOD CELL CASTS, URINE RARE /LPF
[2023-04-29 05:17] LABS: NEUTROPHILS % (MANUAL) 78 %
[2023-04-29 05:18] LABS: LYMPHOCYTES % (MANUAL) 7 %; MONOCYTES % (MANUAL) 15 %; RBC MORPH NORMAL
[2023-04-29] MEDS ORDERED: IOHEXOL 350 MG/ML 100 ML (OMNIPAQUE 350) VIAL IV ONE (06:30)
[2023-04-29] MEDS ORDERED: NS 100 ML (IVPB) BAG IV ONE (06:30)
[2023-04-29] MEDS ORDERED: HOLD METFORMIN - RECEIVED CONTRAST 20 ML VIAL IV SCH (06:30)
--- NOTE | 2023-04-29 08:17 | Diagnostic Imaging Report ---
PROCEDURE: CT abdomen and pelvis with contrast. TECHNIQUE: Multiple contiguous axial images were obtained through the abdomen and pelvis after administration of intravenous contrast. Auto Exposure Controls were utilized during the CT exam to meet ALARA standards for radiation dose reduction. All CT scans use one or more of the following dose optimizing techniques: automated exposure control, MA and/or KvP adjustment based on patient size and exam type or iterative reconstruction. INDICATION: Abdominal pain. No prior studies are available for comparison. The lung bases are clear of acute infiltrates. The liver demonstrates some generalized low attenuation consistent with hepatic steatosis. No liver mass is identified. There is a large stone within the gallbladder. No biliary ductal dilatation is identified. Pancreas and spleen are unremarkable. No adrenal mass is identified. Kidneys are unremarkable. Aorta is calcified but nonaneurysmal. There are significantly dilated and fluid-filled small bowel loops throughout the abdomen with transition distally consistent with small bowel obstruction. Trace free fluid in the right lower quadrant is noted. No well-formed fluid collection is seen. There is no free air. Colon is decompressed. There is generalized colonic diverticulosis but no evidence of acute diverticulitis. The bladder is unremarkable. Prostate is enlarged. IMPRESSION: 1. Cholelithiasis. 2. Dilated and fluid-filled small bowel loops with transition distally consistent with small bowel obstruction. 3. Uncomplicated diverticulosis. Dictated by: Dictated on workstation # [id number]
--- NOTE | 2023-04-29 09:30 | Consultation - Surgery ---
MENDOZA 04/29/23 0930: History of Present Illness History of Present Illness Patient Consulted On(iliana/time) 04/29/23 09:22 Date Seen by Provider: Apr 29, 2023 Time Seen by Provider: 09:20 History of Present Illness 72 y/o male presented to the ED w/ abdominal pain and diarrhea that started 3 days ago and progressively become worse. He describes the pain as diffusely all over the abdomen but more tender in the RUQ. Pain is intermittent and lasts about 30 min, he says after an episode of vomiting he will feel better. He has tried Tums and hadley seltzer to help as well as simethicone without any relief. Last night his pain vomiting and diarrhea became more severe prompting his trip to the ED. Abdomen is diffusely distended and mildly tender. PMH includes HTN, DMT2, HLD and arthritis. CT showed cholelethiasis, dilated fluid filled small bowel loops consistent with bowel obstruction and uncomplicated diverticulosis. Allergies and Home Medications Allergies Coded Allergies: No Known Drug Allergies (Unverified , 03/17/11) Patient Home Medication List Home Medication List Reviewed: Yes Cephalexin (Keflex) 500 Mg Capsule, 500 MG PO Q8H Prescribed by: MADELIN MACKENZIE on 10/20/18 163 Enalapril Maleate (Vasotec Po) 5 Mg Tab, 5 MG PO DAILY, (Reported) Entered as Reported by: AYDEN DERAS on 03/17/112148 Glyburide (Glyburide) 5 Mg Tablet, 2 EACH PO DAILY, (Reported) Entered as Reported by: ELIZABETH CONROY on 03/22/11 161 Hydrocodone Bit/Acetaminophen (Lortab 5 Mg Tablet) 1 Tab Tab, 1 EACH PO Q6H Prescribed by: MADELIN MACKENZIE on 10/20/18 163 Insulin Glargine,Hum.rec.anlog (Lantus Solostar) 300 Unit/3 Ml Insuln.pen, 10 UNITS SQ HS, (Reported) Entered as Reported by: AYDEN DERAS on 03/17/112147 Methocarbamol (Robaxin-750) 750 Mg Tablet, 750 MG PO TID Prescribed by: GIOVANNI SAAVEDRA on 08/23/192022 Ondansetron (Ondansetron Odt) 4 Mg Tab.rapdis, 4 MG SL Q4H PRN for NAUSEA/VOMITING Prescribed by: Rona Flanagan on 04/29/23 1228 Past Oayjpqb-Ohrfag-Fxtdnc Hx Patient Social History Smoking Status: Light Tobacco Smoker (chews once a day everyday ) 2nd Hand Smoke Exposure: No Recent Hopitalizations: No Alcohol Use?: Yes (ocassional ) Immunizations Up To Date Tetanus Booster (TDap): Less than 5yrs PED Vaccines UTD: Yes Seasonal Allergies Seasonal Allergies: No Surgeries History of Surgeries: No Respiratory History of Respiratory Disorde: No Cardiovascular History of Cardiac Disorders: Yes Cardiac Disorders: High Cholesterol, Hypertension Neurological History of Neurological Disord: No Reproductive System Hx Reproductive Disorders: No Genitourinary History of Genitourinary Disor: No Gastrointestinal History of Gastrointestinal Di: No Musculoskeletal Musculoskeletal Disorders: Arthritis Endocrine History of Endocrine Disorders: Yes Endocrine Disorders: Diabetes, Insulin dep HEENT History of HEENT Disorders: No Cancer History of Cancer: No Psychosocial History of Psychiatric Problem: No Integumentary History of Skin or Integumenta: No Blood Transfusions History of Blood Disorders: No Review of Systems-General Constitutional: No fever, No malaise EENTM: No blurred vision, No vision loss Respiratory: cough (mild cough ); No dyspnea on exertion, No phlegm Cardiovascular: no symptoms reported; No chest pain, No edema, No palpitations Gastrointestinal: RUQ, abdominal pain (diffusely distended ), diarrhea, vomiting Genitourinary: No dysuria, No hematuria Musculoskeletal: joint pain (from arthritis ); No muscle pain Skin: No hx of skin cancer, No lesions Psychiatric/Neurological: No Symptoms Reported; Denies Headache Physical Exam-General Problems Physical Exam Vital Signs Vital Signs - First Documented 04/29/23 03:44 Temp 36.9 Pulse 95 Resp 20 B/P (MAP) 185/71 (109) Pulse Ox 96 O2 Delivery Room Air Capillary Refill : Less Than 3 Seconds General Appearance: WD/WN, no apparent distress HEENT: PERRL/EOMI, normal ENT inspection Neck: non-tender, supple Respiratory: chest non-tender, normal breath sounds, no respiratory distress, no accessory muscle use Cardiovascular: no edema, no murmur Gastrointestinal: abnormal bowel sounds, distended, tenderness Back: no CVA tenderness, no vertebral tenderness Extremities: non-tender, no pedal edema Neurologic/Psychiatric: alert, oriented x 3 Skin: normal color, warm/dry Data Review Labs Laboratory Tests 04/29/23 03:45: Urine Color ORANGEH, Urine Clarity CLOUDYH, Urine pH 5.5, Urine Specific [place] >=1.030, Urine Protein 3+H, Urine Glucose (UA) NEGATIVE, Urine Ketones 1+H, Urine Nitrite NEGATIVE, Urine Bilirubin 1+H, Urine Urobilinogen 1.0, Urine Leukocyte Esterase NEGATIVE, Urine RBC (Auto) NEGATIVE, Urine RBC NONE, Urine WBC 2-5, Urine Squamous Epithelial Cells 0-2, Urine Crystals NONE, Urine B acteria RACE, Urine Casts PRESENT, Urine Hyaline Casts 0-2H, Urine Granular Casts 0-2H, Urine White Blood Cell Casts RAREH, Urine Mucus LARGEH, Urine Culture Indicated YES 04/29/23 03:56: White Blood Count 11.6H, Red Blood Count 5.00, Hemoglobin 15.4, Hematocrit 44, Mean Corpuscular Volume 88, Mean Corpuscular Hemoglobin 31, Mean Corpuscular Hemoglobin Concent 35, Red Cell Distribution Width 13.4, Platelet Count 245, Mean Platelet Volume 10.0, Immature Granulocyte % (Auto) 0, Neutrophils (%) (Auto) 76H, Lymphocytes (%) (Auto) 8L, Monocytes (%) (Auto) 16H, Eosinophils (%) (Auto) 0, Basophils (%) (Auto) 0, Neutrophils # (Auto) 8.8H, Lymphocytes # (Auto) 0.9L, Monocytes # (Auto) 1.8H, Eosinophils # (Auto) 0.0, Basophils # (Auto) 0.0, Immature Granulocyte # (Auto) 0.0, Neutrophils % (Manual) 78, Lymphocytes % (Manual) 7, Monocytes % (Manual) 15, Band Neutrophils , Blood Morphology Comment NORMAL, Sodium Level 141, Potassium Level 2.8L, Chloride Level 96L, Carbon Dioxide Level 28, Anion Gap 17H, Blood Urea Nitrogen 23H, Creatinine 0.98, Estimat Glomerular Filtration Rate 81, BUN/Creatinine Ratio 23, Glucose Level 115H, Calcium Level 9.6, Corrected Calcium 9.4, Total Bilirubin 2.8H, Aspartate Amino Transf (AST/SGOT) 26, Alanine Aminotransferase (ALT/SGPT) 29, Alkaline Phosphatase 85, Total Protein 7.3, Albumin 4.2 04/29/23 04:09: Glucometer 130H Assessment/Plan Assessment/Plan Assessment/Plan Assessment: cholelethiasis small bowel obstruction Plan: cholecysectomy pain control NPO NG tube F/U on small bowel study SIMÓN MCNULTY DO 04/29/23 2204: History of Present Illness History of Present Illness History of Present Illness 72 year old male not felt well this week. Having some abdominal distention and some moderate diffuse abdominal pain. Comes and goes. Has has had some nausea and emesis. Passed bm and a little gas and feeling better. Abdomen was more distended but has gone down. Has not had previous abdominal surgery and no hernias. Patient had ct abd/pelvis with large gallstone and dilated fluid filld small bowel loops consistent with small bowel obstruction, diverticulosis. Allergies and Home Medications Allergies Coded Allergies: No Known Drug Allergies (Unverified , 03/17/11) Patient Home Medication List Home Medication List Reviewed: Yes Cephalexin (Keflex) 500 Mg Capsule, 500 MG PO Q8H Prescribed by: MADELIN MACKENZIE on 10/20/18 163 Enalapril Maleate (Vasotec Po) 5 Mg Tab, 5 MG PO DAILY, (Reported) Entered as Reported by: AYDEN DERAS on 03/17/112148 Glyburide (Glyburide) 5 Mg Tablet, 2 EACH PO DAILY, (Reported) Entered as Reported by: ELIZABETH CONROY on 03/22/11 161 Hydrocodone Bit/Acetaminophen (Lortab 5 Mg Tablet) 1 Tab Tab, 1 EACH PO Q6H Prescribed by: MADELIN MACKENZIE on 10/20/18 163 Insulin Glargine,Hum.rec.anlog (Lantus Solostar) 300 Unit/3 Ml Insuln.pen, 10 UNITS SQ HS, (Reported) Entered as Reported by: AYDEN DERAS on 03/17/112147 Methocarbamol (Robaxin-750) 750 Mg Tablet, 750 MG PO TID Prescribed by: GIOVANNI SAAVEDRA on 08/23/192022 Ondansetron (Ondansetron Odt) 4 Mg Tab.rapdis, 4 MG SL Q4H PRN for NAUSEA/VOMITING Prescribed by: Rona Flanagan on 04/29/23 1228 Past Aopapjm-Pjuyrj-Wpdfxl Hx Blood Transfusions Adverse Reaction to a Blood Tr: No Reviewed Nursing Assessment Reviewed/Agree w Nursing PMH: Yes Family Medical History Significant Family History: No Pertinent Family Hx Review of Systems-General Constitutional: No chills, No diaphoresis EENTM: No blurred vision, No double vision Respiratory: cough (mild cough ); No dyspnea on exertion Cardiovascular: No chest pain, No palpitations Gastrointestinal: abdominal pain (diffusely distended ), diarrhea, nausea, vomiting Genitourinary: No decreased output, No discharge Musculoskeletal: joint pain (from arthritis ); No muscle pain Skin: No change in color, No change in hair/nails Psychiatric/Neurological: Denies Anxiety, Denies Depressed All Other Systems Reviewed Negative Unless Noted: Yes (Negative excepted noted.) Physical Exam-General Problems Physical Exam General Appearance: WD/WN, no apparent distress HEENT: PERRL/EOMI, normal ENT inspection Neck: non-tender, supple Respiratory: chest non-tender, no respiratory distress, no accessory muscle use Cardiovascular: regular rate, rhythm, no JVD Gastrointestinal: distended (mild), tenderness (minimal) Back: no CVA tenderness, no vertebral tenderness Extremities: non-tender, no pedal edema Neurologic/Psychiatric: alert, normal mood/affect, oriented x 3 Skin: normal color, warm/dry Lymphatic: no adenopathy Assessment/Plan Assessment/Plan Assessment/Plan cholelithiasis nausea/vomiting small bowel obstruction with large stone in gallbladder, would recommend lap ryland in near future, do not feel this causing symptoms at this time. pain control F/U on small bowel study contrast does make in colon, abdomen feeling better and distention going down. No previous abdominal surgery or hernias, feel possibly ileus not completely obstructed and feeling better at time of seeing. clear liquids for a couple days and follow up outpatient. any worsening return. Supervisory-Addendum Brief Verification & Attestation Participated in pt care: history, MDM, physical Personally performed: exam, history, MDM, supervision of care Care discussed with: Medical Student Procedures: n/a Results interpretation: Verified all documentation Verification and Attestation of Medical Student E/M Service A medical student performed and documented this service in my presence. I reviewed and verified all information documented by the medical student and made modifications to such information, when appropriate. I personally performed the physical exam and medical decision making. Simón Mcnulty, Apr 29, 2023,22:23 MENDOZA Apr 29, 2023 09:30 SIMÓN MCNULTY DO Apr 29, 2023 22:04
[2023-04-29] MEDS ORDERED: DIATRIZOATE MEGLUM/SODIUM 37% 120 ML (GASTROGRAFIN) PO ONE (10:15)
[2023-04-29] MEDS ORDERED: ONDA4TAB11 SL (12:28)
[2023-04-29 14:12] VITALS: BP 185/71
--- NOTE | 2023-04-29 14:40 | Diagnostic Imaging Report ---
INDICATION: Small bowel obstruction abnormal CT. Patient ingested 120 mg of Gastroview contrast mixed with 120 mL water and serial radiographs of the abdomen were then obtained. Preliminary radiograph abdomen shows a gallstone in the right upper quadrant. There is gaseous distention of small bowel throughout the abdomen. Post ingestion images demonstrate contrast within the stomach with prompt emptying into the proximal small bowel. Numerous small bowel loops are dilated. There is delayed transit to the right colon. Contrast is seen in the right colon at approximately 4.5 hours. Therefore, no complete obstruction is identified. There are some normal caliber small bowel loops in the right abdomen. IMPRESSION: Dilated small bowel loops with transition distally. There is some delayed transit of the contrast through the small bowel, eventually reaching the right colon in approximately 4 to 4.5 hours. No complete small bowel obstruction is identified. Partial obstruction cannot be entirely excluded. Dictated by: Dictated on workstation # [id number]
[2023-04-30] MEDS ORDERED: ENAL-70 PO (23:49)
[2023-04-30] MEDS ORDERED: MELO7.5T46 PO (23:49)
[2023-04-30] MEDS ORDERED: SIME180C65 PO (23:49)
[2023-04-30] MEDS ORDERED: ATOR40TA70 PO (23:49)
[2023-04-30] MEDS ORDERED: METO50TA7 PO (23:49)
[2023-04-30] MEDS ORDERED: AMLO-250 PO (23:49)
== END 2023-04-29 14:11 | disposition home or self-care (01) ==
LOC: EDUNIT# 03:37 → ER 03:41
DX: K80.20 Calculus of gallbladder without cholecystitis without obstruction (principal); K56.609 Unspecified intestinal obstruction, unspecified as to partial versus complete obstruction; E11.9 Type 2 diabetes mellitus without complications; E66.9 Obesity, unspecified; Z79.4 Long term (current) use of insulin; Z68.26 Body mass index [BMI] 26.0-26.9, adult
CPT/HCPCS: 36415; 74177; 74250; 80053; 81000; 82947; 85007; 85027; 87088; 96361; 96374

== ENCOUNTER 2023-04-30 19:54 | Inpatient (IN) | payer MEDICARE, OTHER ==
[~2023-04-30] VITALS: Ht 172.7 cm; Wt 87.2 kg
[~2023-04-30 19:54] MED LIST changes: +ONDA4TAB11 SL
[2023-04-30] MEDS ORDERED: fentaNYL INJECTION 100 MCG/2 ML VIAL IVP STA (20:07)
[2023-04-30 20:15] LABS: BASOPHILS % (AUTO) 1 % (0-10); EOSINOPHILS # (AUTO) 0.1 10^3/uL (0.0-0.3); EOSINOPHILS % (AUTO) 1 % (0-10); HEMATOCRIT 38 % (40-54); HEMOGLOBIN 13.3 g/dL (13.3-17.7); LYMPHOCYTES # (AUTO) 1.6 10^3/uL (1.0-4.0); LYMPHOCYTES % (AUTO) 18 % (12-44); MEAN CORPUSCULAR HEMOGLOBIN 31 pg (25-34); MEAN CORPUSCULAR HGB CONC 35 g/dL (32-36); MEAN CORPUSCULAR VOLUME 89 fL (80-99); MEAN PLATELET VOLUME 9.8 fL (9.0-12.2); MONOCYTES # (AUTO) 1.4 10^3/uL (0.0-1.0); MONOCYTES % (AUTO) 15 % (0-12); NEUTROPHILS # (AUTO) 5.7 10^3/uL (1.8-7.8); NEUTROPHILS % (AUTO) 65 % (42-75); PLATELET COUNT 221 10^3/uL (130-400); WHITE BLOOD COUNT 8.9 10^3/uL (4.3-11.0)
[2023-04-30] MEDS ORDERED: HOLD METFORMIN - RECEIVED CONTRAST 20 ML VIAL IV SCH (20:15)
[2023-04-30] MEDS ORDERED: PANTOPRAZOLE INJECTION 40 MG VIAL IV ONE (20:15)
[2023-04-30] MEDS ORDERED: LACTATED RINGERS 1,000 ML 1,000 ML IV ONE (20:15)
[2023-04-30] MEDS ORDERED: NS 100 ML (IVPB) BAG IV ONE (20:15)
[2023-04-30] MEDS ORDERED: IOHEXOL 350 MG/ML 100 ML (OMNIPAQUE 350) VIAL IV ONE (20:15)
--- NOTE | 2023-04-30 20:15 | ED Abdominal Pain ---
General Chief Complaint: Abdominal/GI Problems Stated Complaint: SWOLLEN STOMACHE/SOA Source of Information: Patient, Old Records History of Present Illness Date Seen by Provider: Apr 30, 2023 Time Seen by Provider: 20:00 Initial Comments PT ARRIVES VIA POV FROM HOME C/O ABDOMINAL PAIN, BLOATING AND SHORTNESS OF BREATH PT STATES SYMPTOMS BEGAN TUESDAY NIGHT 04/28/23 AND SEEN HERE YESTERDAY MORNING. ( ACTUALLY SYMPTOMS BEGAN ON Tuesday04/25/23) WAS TOLD HE HAD GALLSTONES. PER ER RECORD, CT WAS ALSO READ SMALL BOWEL OBSTRUCTION AND GENERAL SURGERY WAS CONSULTED IN ER. SURGEON DID NOT FEEL THAT IT WAS TRUE BOWEL OBSTRUCTION, AND PT WAS SENT HOME HE HAS CONTINUED TO HAVE WORSENING OF SYMPTOMS NO NAUSEA/VOMITING, SINCE PRIOR ER VISIT, BUT HAS HAD NAUSEA/VOMITING EARLIER IN THE WEEK. HE HAS HAD DIARRHEA--LAST BM WAS 30 MINUTES AGO NO URINARY SYMPTOMS AND VOIDING A NORMAL AMOUNT NO FEVER/SWEATS/CHILLS LAST FOOD INTAKE WAS 1530 TODAY--GRILLED CHEESE AND CHICKEN NOODLE SOUP PT HAS HTN, HYPERLIPIDEMIA, AND INSULIN DEPENDENT DIABETES HE HAS HISTORY OF DAILY ETOH --"COUPLE OF BEERS A DAY" BUT STATES HE HAS NOT HAD ANY FOR THE LAST MONTH. NO PRIOR ABDOMINAL SURGERIES PCP: DR. SYKES Allergies and Home Medications Allergies Coded Allergies: No Known Drug Allergies (Unverified , 03/17/11) Patient Home Medication List Home Medication List Reviewed: Yes Cephalexin (Keflex) 500 Mg Capsule, 500 MG PO Q8H Prescribed by: MADELIN MACKENZIE on 10/20/18 1634 Enalapril Maleate (Vasotec Po) 5 Mg Tab, 5 MG PO DAILY, (Reported) Entered as Reported by: AYDEN DERAS on 03/17/112148 Glyburide (Glyburide) 5 Mg Tablet, 2 EACH PO DAILY, (Reported) Entered as Reported by: ELIZABETH CONROY on 03/22/11 161 Hydrocodone Bit/Acetaminophen (Lortab 5 Mg Tablet) 1 Tab Tab, 1 EACH PO Q6H Prescribed by: MADELIN MACKENZIE on 10/20/18 163 Insulin Glargine,Hum.rec.anlog (Lantus Solostar) 300 Unit/3 Ml Insuln.pen, 10 UNITS SQ HS, (Reported) Entered as Reported by: AYDEN DERAS on 03/17/112147 Methocarbamol (Robaxin-750) 750 Mg Tablet, 750 MG PO TID Prescribed by: GIOVANNI SAAVEDRA on 08/23/192022 Ondansetron (Ondansetron Odt) 4 Mg Tab.rapdis, 4 MG SL Q4H PRN for NAUSEA/VOMITING Prescribed by: Rona Flanagan on 04/29/23 1228 Review of Systems Review of Systems Constitutional: no symptoms reported Respiratory: See HPI, Shortness of Air Cardiovascular: No Symptoms Reported; Denies Chest Pain Gastrointestinal: See HPI, Abdomen Distended, Abdominal Pain, Diarrhea, Nausea, Vomiting Genitourinary: No Symptoms Reported Musculoskeletal: no symptoms reported Skin: no symptoms reported Psychiatric/Neurological: No Symptoms Reported Endocrine: No Symptoms Reported Hematologic/Lymphatic: No Symptoms Reported Past Emgkila-Bkzpvv-Ndtfws Hx Patient Social History Tobacco Use?: No Use of E-Cig and/or Vaping dev: No Substance use?: No Alcohol Use?: Yes Alcohol type: Beer Alcohol Frequency: Daily Immunizations Up To Date Tetanus Booster (TDap): Less than 5yrs PED Vaccines UTD: Yes Seasonal Allergies Seasonal Allergies: No Past Medical History Surgery/Hospitalization HX: HTN, DM, SALAMATOF Surgeries: No Respiratory: Yes Pneumonia Cardiac: Yes High Cholesterol, Hypertension Neurological: No Reproductive Disorders: No Genitourinary: No Gastrointestinal: No Musculoskeletal: Yes Arthritis Endocrine: Yes Diabetes, Insulin dep HEENT: No Cancer: No Psychosocial: No Integumentary: No Blood Disorders: No Adverse Reaction/Blood Tranf: No Family Medical History No Pertinent Family Hx Physical Exam Vital Signs Vital Signs - First Documented 04/30/23 20:00 Temp 37.1 Pulse 81 Resp 24 B/P (MAP) 181/80 (113) Pulse Ox 95 O2 Delivery Room Air Capillary Refill : Height/Weight/BMI Height: 5'8.00" Weight: 176lbs. oz. 79.973966lq; 26.00 BMI Method:Actual General Appearance: WD/WN, no apparent distress, other (DOES NOT APPEAR ILL OR TO BE IN ANY DISCOMFORT OR DISTRESS; SMILING, TALKATIVE AND TALKS IN FULL SENTENCES) HEENT: PERRL/EOMI; No scleral icterus (R), No scleral icterus (L); other (HARD OF HEARING) Neck: normal inspection Respiratory: normal breath sounds, no respiratory distress, no accessory muscle use Cardiovascular: regular rate, rhythm, no murmur Gastrointestinal: abnormal bowel sounds (RARE, HIGH PITCHED/TYPANIC BOWEL SOUNDS), distended (MARKEDLY DISTENDED AND FIRM), tenderness (DIFFUSE) Extremities: normal inspection, normal capillary refill Back: no CVA tenderness Neurologic/Psychiatric: shoe ironer II-XII nml as tested, no motor/sensory deficits, alert, normal mood/affect, oriented x 3 Skin: normal color, warm/dry Procedures/Interventions Suture Size: 5-0 Progress/Results/Core Measures Results/Orders Lab Results Laboratory Tests Test 04/30/23 20:03 Range/Units White Blood Count 8.9 4.3-11.0 10^3/uL Red Blood Count 4.31 4.30-5.52 10^6/uL Hemoglobin 13.3 13.3-17.7 g/dL Hematocrit 38 L 40-54 % Mean Corpuscular Volume 89 80-99 fL Mean Corpuscular Hemoglobin 31 25-34 pg Mean Corpuscular Hemoglobin Concent 35 32-36 g/dL Red Cell Distribution Width 13.1 10.0-14.5 % Platelet Count 221 130-400 10^3/uL Mean Platelet Volume 9.8 9.0-12.2 fL Immature Granulocyte % (Auto) 1 % Neutrophils (%) (Auto) 65 42-75 % Lymphocytes (%) (Auto) 18 12-44 % Monocytes (%) (Auto) 15 H 0-12 % Eosinophils (%) (Auto) 1 0-10 % Basophils (%) (Auto) 1 0-10 % Neutrophils # (Auto) 5.7 1.8-7.8 10^3/uL Lymphocytes # (Auto) 1.6 1.0-4.0 10^3/uL Monocytes # (Auto) 1.4 H 0.0-1.0 10^3/uL Eosinophils # (Auto) 0.1 0.0-0.3 10^3/uL Basophils # (Auto) 0.0 0.0-0.1 10^3/uL Immature Granulocyte # (Auto) 0.0 0.0-0.1 10^3/uL Prothrombin Time 13.3 12.2-14.7 SEC INR Comment 1.0 0.8-1.4 Activated Partial Thromboplast Time 29 24-35 SEC Sodium Level 142 135-145 MMOL/L Potassium Level 2.8 L 3.6-5.0 MMOL/L Chloride Level 99 98-107 MMOL/L Carbon Dioxide Level 29 21-32 MMOL/L Anion Gap 14 5-14 MMOL/L Blood Urea Nitrogen 17 7-18 MG/DL Creatinine 0.88 0.60-1.30 MG/DL Estimat Glomerular Filtration Rate 91 BUN/Creatinine Ratio 19 Glucose Level 114 H 70-105 MG/DL Calcium Level 8.7 8.5-10.1 MG/DL Corrected Calcium 8.9 8.5-10.1 MG/DL Magnesium Level 2.2 1.6-2.4 MG/DL Total Bilirubin 2.0 H 0.1-1.0 MG/DL Aspartate Amino Transf (AST/SGOT) 47 H 5-34 U/L Alanine Aminotransferase (ALT/SGPT) 56 H 0-55 U/L Alkaline Phosphatase 72 40-136 U/L Total Protein 6.4 6.4-8.2 GM/DL Albumin 3.8 3.2-4.5 GM/DL Amylase Level 23 L 25-125 U/L Lipase 14 8-78 U/L Serum Alcohol < 10 <10 MG/DL My Orders Orders - FLOYD LANDON DO Ed Iv/Invasive Line Start (04/30/23 20:07) Monitor-Rhythm Ecg Trace Only (04/30/23 20:07) Ct Abdomen/Pelvis W (04/30/23 20:07) Acute Abd Series (04/30/23 20:07) Alcohol (04/30/23 20:07) Amylase (04/30/23 20:07) Cbc And Automated Diff (04/30/23 20:07) Comprehensive Metabolic Panel (04/30/23 20:07) Lipase (04/30/23 20:07) Magnesium (04/30/23 20:07) Protime With Inr (04/30/23 20:07) Partial Thromboplastin Time (04/30/23 20:07) Ua Culture If Indicated (04/30/23 20:07) Ed Iv/Invasive Line Start (04/30/23 20:07) Lactated Ringers 1,000 Ml (Lactated Ring (04/30/23 20:15) Fentanyl Injection (Fentanyl Injection (04/30/23 20:07) Pantoprazole Injection (Pantoprazole Inj (04/30/23 20:15) Iohexol Injection (Omnipaque 350 Mg/Ml 1 (04/30/23 20:15) Received Contrast (Hold Metformin- Contr (04/30/23 20:15) Ns (Ivpb) 100 Ml (Sodium Chloride 0.9% 1 (04/30/23 20:15) Ed Admission (Communication) (04/30/23 20:51) Ed Iv/Invasive Line Start (04/30/23 21:03) Ng Tube Insert & Assessment (04/30/23 21:03) D5 1/2ns + Kcl 40 Meq/L 1000ml (Dextrose (04/30/23 21:15) Medications Given in ED Current Medications Medications Dose Ordered Sig/Nell Route Start Time Stop Time Status Last Admin Dose Admin Iohexol 100 ml ONCE ONCE IV 04/30/23 20:15 04/30/23 20:16 DC 04/30/23 20:27 80 ML Lactated Ringer's 1,000 ml @ 0 mls/hr Q0M ONCE IV 04/30/23 20:15 04/30/23 20:16 DC 04/30/23 20:16 0 MLS/HR Pantoprazole 40 mg ONCE ONCE IV 04/30/23 20:15 04/30/23 20:16 DC 04/30/23 20:15 40 MG Sodium Chloride 100 ml ONCE ONCE IV 04/30/23 20:15 04/30/23 20:16 DC 04/30/23 20:27 100 ML Vital Signs/I&O 04/30/23 20:00 Temp 37.1 Pulse 81 Resp 24 B/P (MAP) 181/80 (113) Pulse Ox 95 O2 Delivery Room Air Progress Progress Note : Progress Note VITALS ON ARRIVAL: TEMP 37.1, HR 81, RR 24, BP 181/80, O2 SAT 95% ON ROOM AIR GIVEN: -IV FLUIDS -PROTONIX -FENTANYL--PAIN IMPROVED LABS: -CBC NORMAL -CMP WITH NA 142, K 2.8, GLU 114, BUN 17, CR 0.88, BILI 2.0, AST 47, ALT 56 -MG NORMAL -AMYLASE, LIPASE NORMAL -PT/PTT/INR NORMAL -UA--UNABLE TO VOID DURING ER STAY -ETOH NEGATIVE ABDOMEN XRAYS AND CT SCAN SHOWING SMALL BOWEL OBSTRUCTION AND CHOLELITHIASIS NG TUBE PLACED WITH IMMEDIATE RETURN OF > 400 ML OF STOMACH CONTENTS NO DETERIORATION IN PT'S CONDITION DURING ER STAY DISCUSSED TEST RESULTS, NEED FOR ADMIT AND PT IS AGREEABLE TO PLAN REVIEWED PRIOR RECORDS, INCLUDING RECENT ER VISIT, WELL ADMITS/H&P'S/CONSULTS/DISCHARGE SUMMARIES, TESTS/PROCEDURES Diagnostic Imaging Comments ACUTE ABDOMEN XRAYS--PER RADIOLOGIST REPORT AT 2037 FINDINGS: The lung volumes are normal. No focal consolidation is seen. No large pleural effusion or pneumothorax is seen. The cardiomediastinal silhouette is normal in size and contour. No acute osseous abnormality is seen. Persistent air-filled distended loops of small bowel are seen throughout the abdomen and pelvis. No free air is seen. IMPRESSION: 1. No acute process in the chest. 2. Persistent distended loops of small bowel in the abdomen and pelvis, suggestive of bowel obstruction or ileus. No free air. CT ABDOMEN/PELVIS--PER RADIOLOGIST REPORT AT 2044 FINDINGS: The heart is unremarkable. The included lung bases are clear. Persistent air-filled distended loops of small bowel throughout the abdomen and pelvis, similar to the prior exam. There is increase in distention of the stomach which is fluid-filled. No evidence of free air or free fluid. The remainder of the exam is unchanged compared to the prior exam from the day before. IMPRESSION: 1. Increasing distention of the stomach with stable persistent distended loops of small bowel throughout the abdomen and pelvis suggestive of small bowel obstruction. Recommend placement of an enteric tube to decompress. 2. The remainder of the exam is unchanged since the day before. Reviewed: Reviewed by Me Departure Communication (Admissions) 2044--SPOKE WITH DR. MCNULTY, SURGEON, ADVISES TO PLACE NG TUBE AND ADMIT 2046--SPOKE WITH DR. CROCKETT, HOSPITALIST, SHE WILL DO ADMIT ORDERS Impression Primary Impression: Small bowel obstruction Additional Impressions: Cholelithiasis IDDM (insulin dependent diabetes mellitus) HTN (hypertension) Hypokalemia Disposition: ADMITTED INPATIENT Condition: Stable Admissions Decision to Admit Reason: Admit from ER (General) Decision to Admit/Date: Apr 30, 2023 Time/Decision to Admit Time: 20:45 Departure-Patient Inst. Referrals: MIREYA SYKES MD (PCP/Family) Primary Care Physician FLOYD LANDON DO Apr 30, 2023 20:15
[2023-04-30 20:21] LABS: PROTHROMBIN TIME PATIENT 13.3 SEC (12.2-14.7)
[2023-04-30 20:23] LABS: ALBUMIN 3.8 GM/DL (3.2-4.5); CHLORIDE 99 MMOL/L (98-107); POTASSIUM 2.8 MMOL/L (3.6-5.0); SODIUM 142 MMOL/L (135-145)
[2023-04-30 20:24] LABS: AMYLASE 23 U/L (25-125); CALCIUM 8.7 MG/DL (8.5-10.1)
[2023-04-30 20:25] LABS: GLUCOSE 114 MG/DL (70-105)
[2023-04-30 20:26] LABS: CARBON DIOXIDE 29 MMOL/L (21-32); TOTAL PROTEIN 6.4 GM/DL (6.4-8.2)
[2023-04-30 20:29] LABS: ALKALINE PHOSPHATASE 72 U/L (40-136); CREATININE SERUM 0.88 MG/DL (0.60-1.30); GFR ESTIMATED 91
[2023-04-30 20:30] LABS: BUN/CREATININE RATIO 19
[2023-04-30 20:32] LABS: ALANINE AMINOTRANSFERASE 56 U/L (0-55); MAGNESIUM 2.2 MG/DL (1.6-2.4)
[2023-04-30 20:33] LABS: LIPASE 14 U/L (8-78)
--- NOTE | 2023-04-30 20:34 | Diagnostic Imaging Report ---
Patient History: Chest and abdominal pain. Bloating.. Technique: 3 views of the chest, abdomen and pelvis. Comparison: 04/29/2023. FINDINGS: The lung volumes are normal. No focal consolidation is seen. No large pleural effusion or pneumothorax is seen. The cardiomediastinal silhouette is normal in size and contour. No acute osseous abnormality is seen. Persistent air-filled distended loops of small bowel are seen throughout the abdomen and pelvis. No free air is seen. IMPRESSION: 1. No acute process in the chest. 2. Persistent distended loops of small bowel in the abdomen and pelvis, suggestive of bowel obstruction or ileus. No free air. Dictated by: Dictated on workstation # [id number]
--- NOTE | 2023-04-30 20:43 | Diagnostic Imaging Report ---
EXAMINATION: CT abdomen and pelvis with intravenous contrast. TECHNIQUE: Multiple contiguous axial images were obtained through the abdomen and pelvis after the uneventful administration of intravenous contrast. All CT scans use one or more of the following dose optimizing techniques: automated exposure control, MA and/or KvP adjustment based on patient size and exam type or iterative reconstruction. HISTORY: Abdominal pain. Distention. COMPARISON: 04/29/2023. FINDINGS: The heart is unremarkable. The included lung bases are clear. Persistent air-filled distended loops of small bowel throughout the abdomen and pelvis, similar to the prior exam. There is increase in distention of the stomach which is fluid-filled. No evidence of free air or free fluid. The remainder of the exam is unchanged compared to the prior exam from the day before. IMPRESSION: 1. Increasing distention of the stomach with stable persistent distended loops of small bowel throughout the abdomen and pelvis suggestive of small bowel obstruction. Recommend placement of an enteric tube to decompress. 2. The remainder of the exam is unchanged since the day before. Dictated by: Dictated on workstation # [id number]
[2023-04-30 21:45] VITALS: BP 175/77
[2023-04-30] MEDS ORDERED: HYDROmorphone INJECTION 2 MG/ML VIAL IV PRN (22:00)
[2023-04-30] MEDS ORDERED: BISACODYL 10 MG SUPPOSITORY PR PRN (22:00)
[2023-04-30] MEDS ORDERED: ACETAMINOPHEN 325 MG TABLET PO PRN (22:00)
[2023-04-30] MEDS ORDERED: CALCIUM CARBONATE 500 MG CHEW TABLET PO PRN (22:00)
[2023-04-30] MEDS ORDERED: MELATONIN 3 MG TABLET PO PRN (22:00)
[2023-04-30] MEDS ORDERED: NITROGLYCERIN 2% OINT 1 GM UNIT DOSE PACKET TOP PRN (22:00)
[2023-04-30] MEDS ORDERED: LACTULOSE SYRUP 10GM/15ML 30ML UDC PO PRN (22:00)
[2023-04-30] MEDS ORDERED: oxyCODONE IMMEDIATE RELEASE 5 MG TABLET PO PRN (22:00)
[2023-04-30] MEDS ORDERED: ONDANSETRON INJECTION 4 MG/2 ML (SDV) IV PRN (22:00)
[2023-04-30] MEDS ORDERED: diphenhydrAMINE 25 MG TABLET PO PRN (22:00)
[2023-04-30] MEDS ORDERED: diphenhydrAMINE INJ 50 MG/ML VIAL IVP PRN (22:00)
[2023-04-30] MEDS ORDERED: MILK OF MAGNESIA 400 MG/5 ML 30 ML UDC PO PRN (22:00)
[2023-04-30] MEDS ORDERED: ANTACID SUSPENSION 30 ML UDC PO PRN (22:00)
[2023-04-30] MEDS ORDERED: ONDANSETRON 4 MG ORAL DISSOLVE TABLET PO PRN (22:00)
[2023-04-30] MEDS ORDERED: ACETAMINOPHEN 650 MG SUPPOSITORY PR PRN (22:00)
[2023-04-30] MEDS ORDERED: NS + KCL 20 MEQ/L 1000 ML 1,000 ML IV ONE (22:05)
[2023-04-30 22:07] VITALS: BP 190/102
[2023-04-30] MEDS: NS + KCL 20 MEQ/L 1000 ML 1,000 ML IV SCH (22:36)
[2023-04-30] MEDS: D5 1/2NS + KCL 40 MEQ/L 1000ML 1,000 ML IV SCH (22:39)
[2023-04-30] MEDS: ENOXAPARIN 40 MG/0.4 ML SYRINGE SC SCH (22:40)
[2023-04-30 23:27] VITALS: BP 166/73
[2023-04-30] MEDS: ENALAPRILAT INJ 2.5 MG/2 ML VIAL IV SCH (23:28)
[2023-04-30] MEDS: inSUlin ASPART 1 UNIT/0.01 ML (PER UNIT) SC SCH (23:30)
[2023-04-30] MEDS ORDERED: PHENOL THROAT SPRAY 177 ML LIQUID MC PRN (23:45)
[2023-04-30] MEDS ORDERED: ENAL-70 PO (23:49)
[2023-04-30] MEDS ORDERED: ATOR40TA70 PO (23:49)
[2023-04-30] MEDS ORDERED: AMLO-250 PO (23:49)
[2023-04-30] MEDS ORDERED: SIME180C65 PO (23:49)
[2023-04-30] MEDS ORDERED: METO50TA7 PO (23:49)
[2023-04-30] MEDS ORDERED: MELO7.5T46 PO (23:49)
[2023-05-01 05:00] VITALS: BP 149/72
[2023-05-01] MEDS: ENALAPRILAT INJ 2.5 MG/2 ML VIAL IV SCH ×4 (05:02→23:24)
[2023-05-01] MEDS ORDERED: DEXTROSE 50% 50 ML (IMS) SYR ONE (05:08)
[2023-05-01] MEDS: inSUlin ASPART 1 UNIT/0.01 ML (PER UNIT) SC SCH ×4 (05:12→23:27)
[2023-05-01] MEDS ORDERED: DEXTROSE 50% 50 ML (IMS) SYR IV ONE (05:15)
[2023-05-01 05:31] LABS: BASOPHILS % (AUTO) 0 % (0-10); EOSINOPHILS # (AUTO) 0.1 10^3/uL (0.0-0.3); EOSINOPHILS % (AUTO) 1 % (0-10); HEMATOCRIT 36 % (40-54); HEMOGLOBIN 12.4 g/dL (13.3-17.7); LYMPHOCYTES # (AUTO) 1.9 10^3/uL (1.0-4.0); LYMPHOCYTES % (AUTO) 20 % (12-44); MEAN CORPUSCULAR HEMOGLOBIN 30 pg (25-34); MEAN CORPUSCULAR HGB CONC 34 g/dL (32-36); MEAN CORPUSCULAR VOLUME 89 fL (80-99); MONOCYTES # (AUTO) 1.4 10^3/uL (0.0-1.0); MONOCYTES % (AUTO) 15 % (0-12); NEUTROPHILS # (AUTO) 5.8 10^3/uL (1.8-7.8); NEUTROPHILS % (AUTO) 63 % (42-75); PLATELET COUNT 219 10^3/uL (130-400); WHITE BLOOD COUNT 9.2 10^3/uL (4.3-11.0)
[2023-05-01 05:56] LABS: BILIRUBIN,TOTAL 1.4 MG/DL (0.1-1.0); CALCIUM 8.2 MG/DL (8.5-10.1); CREATININE SERUM 0.73 MG/DL (0.60-1.30); TOTAL PROTEIN 5.7 GM/DL (6.4-8.2)
[2023-05-01] MEDS ORDERED: MAGNESIUM 1 GM/100 ML IVPB 100 ML IV ONE (06:30)
[2023-05-01 07:36] VITALS: BP 144/72
--- NOTE | 2023-05-01 07:43 | Consultation - Surgery ---
MENDOZA 05/01/23 0743: History of Present Illness History of Present Illness Patient Consulted On(iliana/time) 05/01/23 07:34 Date Seen by Provider: May 01, 2023 Time Seen by Provider: 07:30 History of Present Illness 72 y/o presented to the ED with a distended abdomen. In his previous visit on 04/29 he came in for persistent N/V, diarrhea and a distended abdomen. Last night patient had some chicken noodle soup and half a grilled cheese and felt very bloated so he came to the ED. Has had 1 small episode of diarrhea yesterday none today and is urinating without problems. Denies any chest pain, headache or fever. No episodes of N/V since his previous departure on 04/29.He currently feels fine and has no complaints. Previous CT from 04/29 showed cholelethiasis, fluid filled small bowel loops w/ transition distally consistent w/ small bowel obstruction. Current CT shows persistent dilated loops of small bowel in the abdomen and pelvis suggestive of bowel obstruction or ileus. NG tube is placed. PMH includes HTN, high cholesterol, DMT2, arthritis. Allergies and Home Medications Allergies Coded Allergies: No Known Drug Allergies (Unverified , 03/17/11) Patient Home Medication List Home Medication List Reviewed: Yes Amlodipine Besylate (Amlodipine Besylate) 5 Mg Tablet, 5 MG PO DAILY, (Reported) Entered as Reported by: ISAIAH MCLAUGHLIN on 04/30/232348 Last Action: Reviewed Atorvastatin Calcium (Atorvastatin Calcium) 40 Mg Tablet, 40 MG PO DAILY, (Reported) Entered as Reported by: ISAIAH MCLAUGHLIN on 04/30/232348 Last Action: Reviewed Enalapril Maleate (Enalapril Maleate) 20 Mg Tablet, 20 MG PO DAILY, (Reported) Entered as Reported by: ISAIAH MCLAUGHLIN on 04/30/232348 Last Action: Reviewed Insulin Glargine,Hum.rec.anlog (Lantus Solostar) 300 Unit/3 Ml Insuln.pen, 43 UNITS SQ BID, (Reported) Entered as Reported by: AYDEN DERAS on 03/17/112147 Last Action: Reviewed Meloxicam (Meloxicam) 7.5 Mg Tablet, 7.5 MG PO BID, (Reported) Entered as Reported by: ISAIAH MCLAUGHLIN on 04/30/232348 Last Action: Reviewed Metoprolol Succinate (Metoprolol Succinate) 50 Mg Tab.er.24h, 50 MG PO DAILY, (Reported) Entered as Reported by: ISAIAH MCLAUGHLIN on 04/30/232348 Last Action: Reviewed Simethicone (Simethicone) 180 Mg Capsule, 180 MG PO for GAS, (Reported) Entered as Reported by: ISAIAH MCLAUGHLIN on 04/30/232348 Last Action: Reviewed Past Epvjlci-Mquiuv-Mtmgyb Hx Patient Social History Smoking Status: Light Tobacco Smoker (Chewed everyday except for the past week.) 2nd Hand Smoke Exposure: No Recent Hopitalizations: No Alcohol Use?: No Immunizations Up To Date Tetanus Booster (TDap): Less than 5yrs PED Vaccines UTD: Yes Seasonal Allergies Seasonal Allergies: No Surgeries History of Surgeries: No Respiratory History of Respiratory Disorde: Yes Respiratory Disorders: Pneumonia Cardiovascular History of Cardiac Disorders: Yes Cardiac Disorders: High Cholesterol, Hypertension Neurological History of Neurological Disord: No Reproductive System Hx Reproductive Disorders: No Genitourinary History of Genitourinary Disor: No Gastrointestinal History of Gastrointestinal Di: No Musculoskeletal History of Musculoskeletal Dis: Yes Musculoskeletal Disorders: Arthritis Endocrine History of Endocrine Disorders: Yes Endocrine Disorders: Diabetes, Insulin dep HEENT History of HEENT Disorders: No Cancer History of Cancer: No Psychosocial History of Psychiatric Problem: No Integumentary History of Skin or Integumenta: No Blood Transfusions History of Blood Disorders: No Adverse Reaction to a Blood Tr: No Family Medical History Significant Family History: No Pertinent Family Hx Review of Systems-General Constitutional: No chills, No diaphoresis, No dizziness, No fever EENTM: No blurred vision, No double vision Respiratory: No cough, No dyspnea on exertion Cardiovascular: No chest pain, No edema, No palpitations Gastrointestinal: diarrhea; No heartburn; loss of appetite (unable to eat much due to distention ) Genitourinary: no symptoms reported; No dysuria, No hematuria Musculoskeletal: no symptoms reported; No back pain; joint pain (arthritis ) Skin: No change in color, No change in hair/nails Psychiatric/Neurological: Denies Depressed, Denies Headache, Denies Numbness Physical Exam-General Problems Physical Exam Vital Signs Vital Signs - First Documented 04/30/23 04/30/23 20:00 22:07 Temp 37.1 Pulse 81 Resp 24 B/P (MAP) 181/80 (113) Pulse Ox 95 O2 Delivery Room Air FiO2 21 Capillary Refill : Less Than 3 Seconds General Appearance: WD/WN, no apparent distress HEENT: PERRL/EOMI, TMs normal Neck: non-tender, supple Respiratory: chest non-tender, lungs clear, normal breath sounds, no respiratory distress, no accessory muscle use Cardiovascular: no edema, no JVD, no murmur Gastrointestinal: no pulsatile mass, abnormal bowel sounds, distended; No tenderness Extremities: non-tender, no pedal edema Neurologic/Psychiatric: alert, normal mood/affect, oriented x 3 Data Review Labs Laboratory Tests 04/30/23 20:03: White Blood Count 8.9, Red Blood Count 4.31, Hemoglobin 13.3, Hematocrit 38L, Mean Corpuscular Volume 89, Mean Corpuscular Hemoglobin 31, Mean Corpuscular Hemoglobin Concent 35, Red Cell Distribution Width 13.1, Platelet Count 221, Mean Platelet Volume 9.8, Immature Granulocyte % (Auto) 1, Neutrophils (%) (Auto) 65, Lymphocytes (%) (Auto) 18, Monocytes (%) (Auto) 15H, Eosinophils (%) (Auto) 1, Basophils (%) (Auto) 1, Neutrophils # (Auto) 5.7, Lymphocytes # (Auto) 1.6, Monocytes # (Auto) 1.4H, Eosinophils # (Auto) 0.1, Basophils # (Auto) 0.0, Immature Granulocyte # (Auto) 0.0, Prothrombin Time 13.3, INR Comment 1.0, Activated Partial Thromboplast Time 29, Sodium Level 142, Potassium Level 2.8L, Chloride Level 99, Carbon Dioxide Level 29, Anion Gap 14, Blood Urea Nitrogen 17, Creatinine 0.88, Estimat Glomerular Filtration Rate 91, BUN/Creatinine Ratio 19, Glucose Level 114H, Calcium Level 8.7, Corrected Calcium 8.9, Magnesium Level 2.2, Total Bilirubin 2.0H, Aspartate Amino Transf (AST/SGOT) 47H, Alanine Aminotransferase (ALT/SGPT) 56H, Alkaline Phosphatase 72, Total Protein 6.4, Albumin 3.8, Amylase Level 23L, Lipase 14, Serum Alcohol < 10 04/30/23 23:30: Glucometer 111H 05/01/23 05:00: White Blood Count 9.2, Red Blood Count 4.08L, Hemoglobin 12.4L, Hematocrit 36L, Mean Corpuscular Volume 89, Mean Corpuscular Hemoglobin 30, Mean Corpuscular Hemoglobin Concent 34, Red Cell Distribution Width 13.2, Platelet Count 219, Mean Platelet Volume 10.0, Immature Granulocyte % (Auto) 0, Neutrophils (%) (Auto) 63, Lymphocytes (%) (Auto) 20, Monocytes (%) (Auto) 15H, Eosinophils (%) (Auto) 1, Basophils (%) (Auto) 0, Neutrophils # (Auto) 5.8, Lymphocytes # (Auto) 1.9, Monocytes # (Auto) 1.4H, Eosinophils # (Auto) 0.1, Basophils # (Auto) 0.0, Immature Granulocyte # (Auto) 0.0, Sodium Level 142, Potassium Level 3.0L, Chloride Level 104, Carbon Dioxide Level 28, Anion Gap 10, Blood Urea Nitrogen 12, Creatinine 0.73, Estimat Glomerular Filtration Rate 96, BUN/Creatinine Ratio 16, Glucose Level 56*L, Calcium Level 8.2L, Corrected Calcium 9.0, Total Bilirubin 1.4H, Aspartate Amino Transf (AST/SGOT) 36H, Alanine Aminotransferase (ALT/SGPT) 45, Alkaline Phosphatase 68, Total Protein 5.7L, Albumin 3.0L 05/01/23 05:06: Glucometer 54*L 05/01/23 06:04: Glucometer 81 05/01/23 06:25: Magnesium Level 2.0 Assessment/Plan Assessment/Plan Assessment/Plan Assessment: Small bowel obstruction Cholelethiasis Plan: keep NPO and NG tube IV fluids monitor labs and vitals keep monitoring distention and pain SIMÓN MCNULTY DO 05/01/23 1417: History of Present Illness History of Present Illness History of Present Illness 72 year old male with worsening abdominal distention. Tried eating last night and worsened. Had diarrhea yesterday. Not having nausea and emesis. Has NG tube in place. Ct with small bowel and gastric distention. Allergies and Home Medications Allergies Coded Allergies: No Known Drug Allergies (Unverified , 03/17/11) Patient Home Medication List Home Medication List Reviewed: Yes Amlodipine Besylate (Amlodipine Besylate) 5 Mg Tablet, 5 MG PO DAILY, (Reported) Entered as Reported by: ISAIAH MCLAUGHLIN on 04/30/232348 Last Action: Reviewed Atorvastatin Calcium (Atorvastatin Calcium) 40 Mg Tablet, 40 MG PO DAILY, (Reported) Entered as Reported by: ISAIAH MCLAUGHLIN on 04/30/232348 Last Action: Reviewed Enalapril Maleate (Enalapril Maleate) 20 Mg Tablet, 20 MG PO DAILY, (Reported) Entered as Reported by: ISAIAH MCLAUGHLIN on 04/30/232348 Last Action: Reviewed Insulin Glargine,Hum.rec.anlog (Lantus Solostar) 300 Unit/3 Ml Insuln.pen, 43 UNITS SQ BID, (Reported) Entered as Reported by: AYDEN DERAS on 03/17/112147 Last Action: Reviewed Meloxicam (Meloxicam) 7.5 Mg Tablet, 7.5 MG PO BID, (Reported) Entered as Reported by: ISAIAH MCLAUGHLIN on 04/30/232348 Last Action: Reviewed Metoprolol Succinate (Metoprolol Succinate) 50 Mg Tab.er.24h, 50 MG PO DAILY, (Reported) Entered as Reported by: ISAIAH MCLAUGHLIN on 04/30/232348 Last Action: Reviewed Simethicone (Simethicone) 180 Mg Capsule, 180 MG PO for GAS, (Reported) Entered as Reported by: ISAIAH MCLAUGHLIN on 04/30/232348 Last Action: Reviewed Past Mchcmjz-Oducan-Ydpkot Hx Reviewed Nursing Assessment Reviewed/Agree w Nursing PMH: Yes Family Medical History Significant Family History: No Pertinent Family Hx Review of Systems-General Constitutional: No chills, No diaphoresis EENTM: No blurred vision, No double vision Respiratory: No cough, No dyspnea on exertion Gastrointestinal: diarrhea, loss of appetite (unable to eat much due to distention ), nausea, vomiting Genitourinary: No decreased output, No discharge Musculoskeletal: No back pain; joint pain (arthritis ) Skin: No change in color, No change in hair/nails Psychiatric/Neurological: Denies Anxiety, Denies Depressed, Denies Emotional Problems All Other Systems Reviewed Negative Unless Noted: Yes (Negative excepted noted.) Physical Exam-General Problems Physical Exam General Appearance: WD/WN, no apparent distress HEENT: PERRL/EOMI, normal ENT inspection (ng in place) Neck: non-tender, supple Respiratory: chest non-tender, no respiratory distress, no accessory muscle use Cardiovascular: regular rate, rhythm, no JVD Gastrointestinal: distended; No tenderness Rectal: deferred Back: normal inspection, no CVA tenderness Extremities: non-tender, no pedal edema Neurologic/Psychiatric: alert, normal mood/affect, oriented x 3 Skin: normal color, warm/dry Lymphatic: no adenopathy Assessment/Plan Assessment/Plan Assessment/Plan small bowel obstruction cholelithiasis n/v bowel obstruction vs ileus does have possible transition point on distal small bowel on ct and small bowel follow through. Ng tube to liws. I do not think his gallstone is causing his symtpoms. We discussed if not improving may need surgical intervention. NPO IV hydration Supervisory-Addendum Brief Verification & Attestation Participated in pt care: history, MDM, physical Personally performed: exam, history, MDM, supervision of care Care discussed with: Medical Student Procedures: n/a Results interpretation: Verified all documentation Verification and Attestation of Medical Student E/M Service A medical student performed and documented this service in my presence. I reviewed and verified all information documented by the medical student and made modifications to such information, when appropriate. I personally performed the physical exam and medical decision making. Simón Mcnulty, May 01, 2023,14:21 MENDOZA May 01, 2023 07:43 SIMÓN MCNULTY DO May 01, 2023 14:17
[2023-05-01] MEDS: POTASSIUM CL 10MEQ/50ML IVPB 50 ML IV SCH ×11 (08:03→19:09)
[2023-05-01] MEDS: DOCUSATE SODIUM 100 MG CAPSULE PO SCH ×2 (08:03→19:30)
[2023-05-01] MEDS: SENNOSIDES 8.6 MG TABLET PO SCH ×2 (08:03→19:31)
[2023-05-01] MEDS: D5 1/2NS + KCL 40 MEQ/L 1000ML 1,000 ML IV SCH (08:08)
[2023-05-01] MEDS: NS + KCL 20 MEQ/L 1000 ML 1,000 ML IV SCH (09:44)
[2023-05-01] MEDS ORDERED: POTASSIUM CHLORIDE INJ 20 MEQ in D5 NS 1,000 ML IV SOLN 1,000 ML IV SCH (10:00)
--- NOTE | 2023-05-01 10:02 | History & Physical ---
History of Present Illness HPI/Chief Complaint CC: Abdominal pain with SBO and gallbladder disease HPI: This is a 72yoWM who presents to the ER for the second time since Tuesday with worsened abdominal pain. He was found to have SBO so NGT was placed. Gallstones noted on w/u Tuesday. No fever noted. Dr Naidu consulted and recommended NGT and supportive care and replacement of potassium. Source: patient Exam Limitations: no limitations Date Seen 05/01/23 Time Seen by a Provider: 11:00 Attending Physician Sammi Lozano MD PCP Admitting Physician: Loyda Crockett DO Attending Physician: Loyda Crockett DO Referring Physician Date of Admission Apr 30, 2023 at 21:29 Home Medications & Allergies Home Medications Reviewed patient Home Medication Reconciliation performed by pharmacy medication reconciliations hardware technician and/or nursing. Patients Allergies have been reviewed. Allergies Allergies Coded Allergies No Known Drug Allergies (Unverified03/17/11) Past Tclweko-Cewstu-Nihbpq Hx Past Med/Social Hx: Reviewed Nursing Past Med/Soc Hx, Reviewed and Corrections made Patient Social History Marrital Status: Employed/Student: retired Alcohol Use: Rarely Uses Smoking Status: Light Tobacco Smoker (Chewed everyday except for the past week.) 2nd Hand Smoke Exposure: No Recent Hopitalizations: No Immunizations Up To Date Tetanus Booster (TDap): Less than 5yrs Pediatric: Yes Seasonal Allergies Seasonal Allergies: No Past Medical History Cardiac: High Cholesterol, Hypertension Reproductive: No Musculoskeletal: Arthritis Endocrine: Diabetes, Insulin dep History of Blood Disorders: No Adverse Reaction to Blood Myrick: No Family History No Pertinent Family Hx Review of Systems Constitutional: see HPI EENTM: no symptoms reported Respiratory: no symptoms reported Cardiovascular: no symptoms reported Gastrointestinal: abdominal pain, nausea Musculoskeletal: no symptoms reported Skin: no symptoms reported Psychiatric/Neurological: No Symptoms Reported All Other Systems Reviewed Negative Unless Noted: Yes Physical Exam Physical Exam Vital Signs Vital Signs - First Documented 04/30/23 04/30/23 20:00 22:07 Temp 37.1 Pulse 81 Resp 24 B/P (MAP) 181/80 (113) Pulse Ox 95 O2 Delivery Room Air FiO2 21 Capillary Refill : Less Than 3 Seconds Height, Weight, BMI Height: 5'8.00" Weight: 176lbs. oz. 79.800486ia; 29.23 BMI Method:Actual General Appearance: WD/WN, Anxious, Chronically ill, Mild Distress Eyes: Bilateral Eye Normal Inspection, Bilateral Eye PERRL HEENT: PERRL/EOMI, TMs Normal, Normal ENT Inspection, Pharynx Normal, Other (NGT in place) Neck: Full Range of Motion, Normal Inspection, Non Tender, Supple, Carotid Bruit Respiratory: Chest Non Tender, Lungs Clear, Normal Breath Sounds, No Accessory Muscle Use, No Respiratory Distress Cardiovascular: Regular Rate, Rhythm, No Edema, No Gallop, No JVD, No Murmur, Normal Peripheral Pulses Gastrointestinal: Normal Bowel Sounds, No Organomegaly, No Pulsatile Mass, Soft, Abnormal Bowel Sounds Back: Normal Inspection, No CVA Tenderness, No Vertebral Tenderness Extremity: Normal Capillary Refill, Normal Inspection, Normal Range of Motion, Non Tender, No Calf Tenderness, No Pedal Edema Neurologic/Psychiatric: Alert, Oriented x3, No Motor/Sensory Deficits, Normal Mood/Affect, 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 Assessment/Plan Admission Diagnosis Assessment: Abdominal pain SBO Gallbladder disease HTN HLP Smoker Severe hypokalemia Lovenox for DVT PPx Hypoglycemia due to insulin and NPO status receiving D5NS and 1/2 amp pf D50 Plan: IVF Replace potassium Dr Naidu consultation Lovenox Monitor sugar D50 when needed Admission Status: Inpatient Order (span 2 midnights) Reason for Inpatient Admission: SBO LOYDA CROCKETT DO May 01, 2023 10:02
[2023-05-01] MEDS: D5 NS + KCL 20 MEQ/L 1,000 ML 1,000 ML IV SCH ×2 (10:46→20:47)
[2023-05-01 11:26] VITALS: BP 138/73
[2023-05-01] MEDS ORDERED: DEXTROSE 50% 50 ML (IMS) SYR IV PRN (11:30)
[2023-05-01 15:27] VITALS: BP 151/80
[2023-05-01] MEDS: ENOXAPARIN 40 MG/0.4 ML SYRINGE SC SCH (19:30)
[2023-05-01 19:52] VITALS: BP 164/67
[2023-05-01 23:23] VITALS: BP 163/72
[2023-05-02] VITALS (8 sets, daily range): BP systolic 142–184; BP diastolic 69–94
[2023-05-02] MEDS: ENALAPRILAT INJ 2.5 MG/2 ML VIAL IV SCH ×3 (05:20→19:32)
[2023-05-02] MEDS: inSUlin ASPART 1 UNIT/0.01 ML (PER UNIT) SC SCH ×4 (05:22→23:05)
[2023-05-02] MEDS: D5 NS + KCL 20 MEQ/L 1,000 ML 1,000 ML IV SCH ×2 (05:27→15:34)
[2023-05-02 05:59] LABS: BASOPHILS % (AUTO) 0 % (0-10); EOSINOPHILS # (AUTO) 0.1 10^3/uL (0.0-0.3); EOSINOPHILS % (AUTO) 1 % (0-10); HEMATOCRIT 36 % (40-54); HEMOGLOBIN 12.1 g/dL (13.3-17.7); LYMPHOCYTES # (AUTO) 1.4 10^3/uL (1.0-4.0); LYMPHOCYTES % (AUTO) 18 % (12-44); MEAN CORPUSCULAR HEMOGLOBIN 30 pg (25-34); MEAN CORPUSCULAR HGB CONC 34 g/dL (32-36); MEAN CORPUSCULAR VOLUME 90 fL (80-99); MEAN PLATELET VOLUME 9.9 fL (9.0-12.2); MONOCYTES % (AUTO) 13 % (0-12); NEUTROPHILS # (AUTO) 4.9 10^3/uL (1.8-7.8); NEUTROPHILS % (AUTO) 66 % (42-75); PLATELET COUNT 204 10^3/uL (130-400); WHITE BLOOD COUNT 7.5 10^3/uL (4.3-11.0)
[2023-05-02 06:16] LABS: ALBUMIN 3.3 GM/DL (3.2-4.5); BILIRUBIN,TOTAL 1.4 MG/DL (0.1-1.0); CALCIUM 7.8 MG/DL (8.5-10.1); CREATININE SERUM 0.7 MG/DL (0.60-1.30); POTASSIUM 3.9 MMOL/L (3.6-5.0); TOTAL PROTEIN 5.5 GM/DL (6.4-8.2)
--- NOTE | 2023-05-02 07:59 | Progress Note - Surgery ---
LOPEZ,JUAN 05/02/23 0759: Subjective Date Seen by a Provider: May 02, 2023 Time Seen by a Provider: 07:50 Subjective/Events-last exam Patient feel fine today just like when he left the ED last time. His distention has decreased and had 2 BM last night, both looked more solid in appearance compared to his previous diarrhea. Reports no N/V or chest pain Review of Systems General: No Chills, No Night Sweats HEENT: Head Aches (mild headache last night ); No Visual Changes Cardiovascular: No: Chest Pain, Palpitations Gastrointestinal: No: Nausea, Vomiting, Abdominal Pain Genitourinary: No Dysuria, No Hematuria Musculoskeletal: No: neck pain, shoulder pain Neurological: No: Numbness, Confusion Objective Exam Vital Signs Date Time Temp Pulse Resp B/P (MAP) Pulse Ox O2 Delivery O2 Flow Rate FiO2 05/02/23 07:44 36.8 72 18 167/82 (110) 96 Room Air 05/02/23 05:00 36.5 67 20 165/69 (101) 95 Room Air 05/02/23 01:00 60 05/01/23 23:23 36.8 64 20 163/72 (102) 95 Room Air 05/01/23 21:01 Room Air 05/01/23 19:52 37.0 70 18 164/67 (99) 96 Room Air 05/01/23 19:30 Room Air 05/01/23 19:00 70 05/01/23 15:27 36.9 70 20 151/80 (103) 93 Room Air 05/01/23 12:23 70 05/01/23 11:26 36.6 69 17 138/73 (94) 96 Room Air 05/01/23 08:20 Room Air I & O 05/02/23 07:00 Intake Total 3550 ml Output Total 2325 ml Balance 1225 ml Capillary Refill : Less Than 3 Seconds General Appearance: WD/WN, Anxious, Chronically ill, Mild Distress HEENT: PERRL/EOMI, TMs Normal, Other (NGT in place) Neck: Full Range of Motion, Non Tender, Supple Respiratory: Chest Non Tender, Lungs Clear, Normal Breath Sounds, No Accessory Muscle Use, No Respiratory Distress Cardiovascular: Regular Rate, Rhythm, No Edema, No Gallop, No JVD, No Murmur, Normal Peripheral Pulses Gastrointestinal: distended; No tenderness Extremity: Normal Capillary Refill, Normal Inspection, Normal Range of Motion, Non Tender, No Calf Tenderness, No Pedal Edema Neurologic/Psychiatric: Alert, Oriented x3, No Motor/Sensory Deficits, Normal 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, 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 Norm as Tested Skin: Normal Color, Warm/Dry Lymphatic: No Adenopathy Results Lab Laboratory Tests 05/01/23 11:16: Glucometer 68L 05/01/23 17:34: Glucometer 81 05/01/23 17:40: Glucometer 80 05/01/23 20:45: Glucometer 84 05/01/23 23:27: Glucometer 92 05/02/23 05:22: Glucometer 117H 05/02/23 05:38: White Blood Count 7.5, Red Blood Count 4.00L, Hemoglobin 12.1L, Hematocrit 36L, Mean Corpuscular Volume 90, Mean Corpuscular Hemoglobin 30, Mean Corpuscular Hemoglobin Concent 34, Red Cell Distribution Width 13.1, Platelet Count 204, Mean Platelet Volume 9.9, Immature Granulocyte % (Auto) 2, Neutrophils (%) ( Auto) 66, Lymphocytes (%) (Auto) 18, Monocytes (%) (Auto) 13H, Eosinophils (%) (Auto) 1, Basophils (%) (Auto) 0, Neutrophils # (Auto) 4.9, Lymphocytes # (Auto) 1.4, Monocytes # (Auto) 1.0, Eosinophils # (Auto) 0.1, Basophils # (Auto) 0.0, Immature Granulocyte # (Auto) 0.1, Sodium Level 141, Potassium Level 3.9, Chloride Level 109H, Carbon Dioxide Level 24, Anion Gap 8, Blood Urea Nitrogen 5L, Creatinine 0.70, Estimat Glomerular Filtration Rate 97, BUN/Creatinine Ratio 7, Glucose Level 129H, Calcium Level 7.8L, Corrected Calcium 8.4L, Total Bilirubin 1.4H, Aspartate Amino Transf (AST/SGOT) 24, Alanine Aminotransferase (ALT/SGPT) 34, Alkaline Phosphatase 66, Total Protein 5.5L, Albumin 3.3 Assessment/Plan Assessment/Plan Assessment/Plan Assessment: small bowel obstruction - possible paralytic ileus cholelithiasis n/v Plan: does have possible transition point on distal small bowel on ct and small bowel follow through. Ng tube NPO IV hydration Possible surgical intervention SIMÓN NAIDU DO 05/02/231807: Subjective Subjective/Events-last exam Had flatus and bm. Feeling better. Abdomen less distended. Feeling better and moving around. Denies n/v fever sweats chills shortness of breath or chest pain at this time. Objective Exam General Appearance: No Apparent Distress, WD/WN HEENT: PERRL/EOMI, Normal ENT Inspection, Other (NGT in place) Neck: Non Tender, Supple Respiratory: Chest Non Tender, No Accessory Muscle Use, No Respiratory Distress Cardiovascular: Regular Rate, Rhythm, No JVD Gastrointestinal: distended (less); No tenderness Extremity: Normal Inspection, Non Tender Neurologic/Psychiatric: Alert, Oriented x3 Skin: Normal Color, Warm/Dry Lymphatic: No Adenopathy Assessment/Plan Assessment/Plan Assessment/Plan small bowel obstruction cholelithiasis n/v does have possible transition point on distal small bowel on ct and small bowel follow through done previously Ng tube in place having bowel function NPO will get kub and if distention better and since bowel function will pull ng and start clears IV hydration If return of symptoms may need exploration of small bowel and later also will discuss cholecystectomy Supervisory-Addendum Brief Verification & Attestation Participated in pt care: history, MDM, physical Personally performed: exam, history, MDM, supervision of care Care discussed with: Medical Student Procedures: n/a Results interpretation: Verified all documentation Verification and Attestation of Medical Student E/M Service A medical student performed and documented this service in my presence. I reviewed and verified all information documented by the medical student and made modifications to such information, when appropriate. I personally performed the physical exam and medical decision making. Simón Naidu, May 02, 2023,18:08 MENDOZA May 02, 2023 07:59 SIMÓN NAIDU DO May 02, 2023 18:08
[2023-05-02] MEDS ORDERED: INSU100I10 SQ (09:30)
[2023-05-02] MEDS: SENNOSIDES 8.6 MG TABLET PO SCH ×2 (09:36→19:49)
[2023-05-02] MEDS: DOCUSATE SODIUM 100 MG CAPSULE PO SCH ×2 (09:36→19:49)
--- NOTE | 2023-05-02 10:50 | Progress Note ---
SARAH DONALD 05/02/23 1049: Subjective Subjective/Events-last exam CC: SBO HPI: Mr. Peraza is a 72 y/o male who presented to the ED on night of 04/30 due to feeling bloated and a small episode of diarrhea after eating a small meal. He previously was admitted to the ED on 04/29 for persistent nausea/vomiting, diarrhea, and a distended abdomen. CT abdomen on 04/29 showed cholelethiasis, and fluid filled small bowel loops with distal transition, cosistent with SBO. CT 04/30 showed increasing distention of the stomach with stable persistent distended loops of small bowel throughout the abdomen and pelvis suggestive of SBO. An NG tube was placed for decompression, patient was ordered NPO, given potassium and IV fluids were given. Today he is doing well. He had two normal bowel movements overnight and is able to urinate without problem. He denies any nausea/vomiting. He has been walking laps multiple laps around the floor. He denies any abdominal pain, and would like to have his NG tube removed and eat some food/coffee. Objective Exam Last Set of Vital Signs Vital Signs Date Time Temp Pulse Resp B/P (MAP) Pulse Ox O2 Delivery O2 Flow Rate FiO2 05/02/23 08:18 Room Air 05/02/23 07:44 36.8 72 18 167/82 (110) 96 04/30/23 22:07 21 Capillary Refill : Less Than 3 Seconds I&O Intake and Output 05/01/23 23:59 Intake Total 2650 ml Output Total 2150 ml Balance 500 ml Intake Oral 0 ml IV Total 2650 ml Output Urine Total 1700 ml Gastric Drainage Total 450 ml General: Alert, Oriented X3, Cooperative, No Acute Distress HEENT: Atraumatic Neck: Supple Lungs: Clear to Auscultation Heart: Regular Rate Abdomen: Normal Bowel Sounds, No Tenderness Extremities: No Clubbing, No Edema Skin: No Rashes Neuro: Normal Gait, Normal Speech Results Lab Laboratory Tests 05/01/23 11:16: Glucometer 68L 05/01/23 17:34: Glucometer 81 05/01/23 17:40: Glucometer 80 05/01/23 20:45: Glucometer 84 05/01/23 23:27: Glucometer 92 05/02/23 05:22: Glucometer 117H 05/02/23 05:38: White Blood Count 7.5, Red Blood Count 4.00L, Hemoglobin 12.1L, Hematocrit 36L, Mean Corpuscular Volume 90, Mean Corpuscular Hemoglobin 30, Mean Corpuscular Hemoglobin Concent 34, Red Cell Distribution Width 13.1, Platelet Count 204, Mean Platelet Volume 9.9, Immature Granulocyte % (Auto) 2, Neutrophils (%) (Auto) 66, Lymphocytes (%) (Auto) 18, Monocytes (%) (Auto) 13H, Eosinophils (%) (Auto) 1, Basophils (%) (Auto) 0, Neutrophils # (Auto) 4.9, Lymphocytes # (Auto) 1.4, Monocytes # (Auto) 1.0, Eosinophils # (Auto) 0.1, Basophils # (Auto) 0.0, Immature Granulocyte # (Auto) 0.1, Sodium Level 141, Potassium Level 3.9, Chloride Level 109H, Carbon Dioxide Level 24, Anion Gap 8, Blood Urea Nitrogen 5L, Creatinine 0.70, Estimat Glomerular Filtration Rate 97, BUN/Creatinine Ratio 7, Glucose Level 129H, Calcium Level 7.8L, Corrected Calcium 8.4L, Total Bilirubin 1.4H, Aspartate Amino Transf (AST/SGOT) 24, Alanine Aminotransferase (ALT/SGPT) 34, Alkaline Phosphatase 66, Total Protein 5.5L, Albumin 3.3 Assessment/Plan Assessment/Plan Assess & Plan/Chief Complaint Assessment: 72 y/o male presenting for SBO. Plan: Small Bowel Obstruction -NPO, IVF -Dr. Naidu for possible NG tube removal Hypokalemia -2.8 on admission -3.9 today -d/c K+ supplementation HTN -continue enalaprilat DM II -monitor blood glucose -insulin prn LOYDA CROCKETT DO 05/03/23 0430: Subjective Date Seen by a Provider: May 02, 2023 Time Seen by a Provider: 10:00 Subjective/Events-last exam Patient doing well no pain is reported NG tube is still in place We will discontinue telemetry Review of Systems General: Fatigue, Malaise Objective Exam General: Alert, Oriented X3, Cooperative, No Acute Distress Lungs: Clear to Auscultation, Normal Air Movement Heart: Regular Rate, Normal S1, Normal S2, No Murmurs Psych/Mental Status: Mental Status NL, Mood NL Assessment/Plan Assessment/Plan Assess & Plan/Chief Complaint NG tube Replace potassium Supervisory-Addendum Brief Verification & Attestation Participated in pt care: history, MDM, physical Personally performed: exam, history, MDM, supervision of care Care discussed with: Medical Student Procedures: n/a Results interpretation: Verified all documentation Verification and Attestation of Medical Student E/M Service A medical student performed and documented this service in my presence. I reviewed and verified all information documented by the medical student and made modifications to such information, when appropriate. I personally performed the physical exam and medical decision making. Loyda Crockett, May 03, 2023,04:29 SARAH DONALD May 02, 2023 10:49 LOYDA CROCKETT DO May 03, 2023 04:30
[2023-05-02] MEDS: hydrALAZINE INJECTION 20 MG/ML VIAL IV PRN (11:10)
--- NOTE | 2023-05-02 12:17 | Diagnostic Imaging Report ---
INDICATION: Abdominal distention. COMPARISON: CT from earlier this same day. FINDINGS: Two frontal radiographic views of the abdomen were obtained. Small bowel loops are now nondilated. Indwelling gastric tube is seen with tip and side-port within the stomach. There is no large collection of free intraperitoneal air. Largest calculus projects over the right upper abdominal quadrant and is consistent with the large gallstone seen on the previous study. Osseous structures show age-related degenerative changes. IMPRESSION: 1. Small bowel loops are now nondilated. 2. Redemonstration of large gallstone. Dictated by: Dictated on workstation # [id number]
[2023-05-02] MEDS: ENOXAPARIN 40 MG/0.4 ML SYRINGE SC SCH (19:45)
[2023-05-03] MEDS: ENALAPRILAT INJ 2.5 MG/2 ML VIAL IV SCH ×2 (00:36→05:31)
[2023-05-03 03:38] VITALS: BP 165/75
[2023-05-03] MEDS: hydrALAZINE INJECTION 20 MG/ML VIAL IV PRN ×2 (03:47→07:52)
[2023-05-03] MEDS: D5 NS + KCL 20 MEQ/L 1,000 ML 1,000 ML IV SCH (03:50)
[2023-05-03] MEDS: inSUlin ASPART 1 UNIT/0.01 ML (PER UNIT) SC SCH (05:32)
[2023-05-03 05:48] LABS: BASOPHILS % (AUTO) 1 % (0-10); EOSINOPHILS # (AUTO) 0.1 10^3/uL (0.0-0.3); EOSINOPHILS % (AUTO) 1 % (0-10); HEMATOCRIT 37 % (40-54); HEMOGLOBIN 12.7 g/dL (13.3-17.7); LYMPHOCYTES # (AUTO) 1.8 10^3/uL (1.0-4.0); LYMPHOCYTES % (AUTO) 21 % (12-44); MEAN CORPUSCULAR HEMOGLOBIN 31 pg (25-34); MEAN CORPUSCULAR HGB CONC 34 g/dL (32-36); MEAN CORPUSCULAR VOLUME 89 fL (80-99); MEAN PLATELET VOLUME 10.1 fL (9.0-12.2); MONOCYTES % (AUTO) 12 % (0-12); NEUTROPHILS # (AUTO) 5.1 10^3/uL (1.8-7.8); NEUTROPHILS % (AUTO) 62 % (42-75); PLATELET COUNT 227 10^3/uL (130-400); WHITE BLOOD COUNT 8.2 10^3/uL (4.3-11.0)
[2023-05-03 06:13] LABS: ALBUMIN 3.6 GM/DL (3.2-4.5); BILIRUBIN,TOTAL 1.5 MG/DL (0.1-1.0); CALCIUM 8.1 MG/DL (8.5-10.1); CREATININE SERUM 0.72 MG/DL (0.60-1.30); POTASSIUM 3.7 MMOL/L (3.6-5.0)
[2023-05-03 07:33] VITALS: BP 184/81
--- NOTE | 2023-05-03 07:38 | Progress Note - Surgery ---
LOPEZJUAN 05/03/23 0738: Subjective Date Seen by a Provider: May 03, 2023 Time Seen by a Provider: 07:30 Subjective/Events-last exam Patient feel well and abdominal distention has significantly decreased. He had 6-7 BM since yesterday and has been passing gas with no problems. Reports no pain and no N/V. NG tube was removed and patient was put on clears. Review of Systems General: No Chills, No Night Sweats HEENT: No Head Aches, No Eye Pain Pulmonary: No Dyspnea, No Cough Cardiovascular: No: Chest Pain, Palpitations Gastrointestinal: No: Nausea, Vomiting, Abdominal Pain Genitourinary: No Dysuria, No Hematuria Musculoskeletal: No: neck pain, shoulder pain Neurological: No: Numbness, Confusion Objective Exam Vital Signs Date Time Temp Pulse Resp B/P (MAP) Pulse Ox O2 Delivery O2 Flow Rate FiO2 05/03/23 03:38 36.4 78 20 165/75 (105) 97 Room Air 05/02/23 23:01 36.5 68 20 142/91 (108) 97 Room Air 05/02/23 20:03 36.5 72 20 158/78 (104) 96 Room Air 05/02/23 20:00 Room Air 05/02/23 16:43 36.5 80 16 152/94 (113) 96 Room Air 05/02/23 14:00 73 18 184/84 (117) 97 Room Air 05/02/23 11:15 73 20 156/73 (100) 96 Room Air 05/02/23 11:03 36.7 72 18 165/76 (105) 96 Room Air 05/02/23 08:18 Room Air 05/02/23 07:44 36.8 72 18 167/82 (110) 96 Room Air I & O 05/03/23 07:00 Intake Total 1980 ml Output Total 1525 ml Balance 455 ml Capillary Refill : Less Than 3 Seconds General Appearance: No Apparent Distress, WD/WN HEENT: PERRL/EOMI, Normal ENT Inspection, Other (NGT in place) Neck: Non Tender, Supple Respiratory: Chest Non Tender, No Accessory Muscle Use, No Respiratory Distress Cardiovascular: Regular Rate, Rhythm, No JVD Gastrointestinal: distended (less); No tenderness Extremity: Normal Inspection, Non Tender Neurologic/Psychiatric: Alert, Oriented x3 Skin: Normal Color, Warm/Dry Lymphatic: No Adenopathy Results Lab Laboratory Tests 05/02/23 11:25: Glucometer 183H 05/02/23 17:04: Glucometer 217H 05/02/23 23:04: Glucometer 133H 05/03/23 05:14: Glucometer 159H, White Blood Count 8.2, Red Blood Count 4.15L, Hemoglobin 12.7L, Hematocrit 37L, Mean Corpuscular Volume 89, Mean Corpuscular Hemoglobin 31, Mean Corpuscular Hemoglobin Concent 34, Red Cell Distribution Width 13.1, Platelet Count 227, Mean Platelet Volume 10.1, Immature Granulocyte % (Auto) 4, Neutrophils (%) (Auto) 62, Lymphocytes (%) (Auto) 21, Monocytes (%) (Auto) 12, Eosinophils (%) (Auto) 1, Basophils (%) (Auto) 1, Neutrophils # (Auto) 5.1, Lymphocytes # (Auto) 1.8, Monocytes # (Auto) 1.0, Eosinophils # (Auto) 0.1, Basophils # (Auto) 0.0, Immature Granulocyte # (Auto) 0.3H, Sodium Level 138, Potassium Level 3.7, Chloride Level 107, Carbon Dioxide Level 22, Anion Gap 9, Blood Urea Nitrogen 4L, Creatinine 0.72, Estimat Glomerular Filtration Rate 96, BUN/Creatinine Ratio 6, Glucose Level 164H, Calcium Level 8.1L, Corrected Calcium 8.4L, Total Bilirubin 1.5H, Aspartate Amino Transf (AST/SGOT) 30, Alanine Aminotransferase (ALT/SGPT) 38, Alkaline Phosphatase 77, Total Protein 6.0L, Albumin 3.6 Assessment/Plan Assessment/Plan Assessment/Plan Assessment: small bowel obstruction - resolved cholelithiasis n/v- resolved Plan: K+ supplementation Tell patient to monitor blood glucose D/C SIMÓN NAIDU DO 05/04/23 1102: Subjective Subjective/Events-last exam Having bowel function. Abdomen back to normal. Patient feeling well and tolerating diet. Denies n/v fever sweats chills shortness of breath or chest pain. Objective Exam General Appearance: No Apparent Distress, WD/WN HEENT: PERRL/EOMI, Normal ENT Inspection Neck: Non Tender, Supple Respiratory: Chest Non Tender, No Accessory Muscle Use, No Respiratory Distress Cardiovascular: Regular Rate, Rhythm, No JVD Gastrointestinal: non tender; No distended (less), No tenderness Extremity: Normal Inspection, Non Tender Neurologic/Psychiatric: Alert, Oriented x3 Skin: Normal Color, Warm/Dry Lymphatic: No Adenopathy Assessment/Plan Assessment/Plan Assessment/Plan small bowel obstruction - resolved cholelithiasis n/v- resolved patient wanting to go home will see in a couple weeks. will need gb out outpatient if return of symptoms of sbo return at that time. Supervisory-Addendum Brief Verification & Attestation Participated in pt care: history, MDM, physical Personally performed: exam, history, MDM, supervision of care Care discussed with: Medical Student Procedures: n/a Results interpretation: Verified all documentation Verification and Attestation of Medical Student E/M Service A medical student performed and documented this service in my presence. I reviewed and verified all information documented by the medical student and made modifications to such information, when appropriate. I personally performed the physical exam and medical decision making. Simón Naidu, May 03, 2023,11:02 MENDOZA May 03, 2023 07:38 SIMÓN NAIDU DO May 04, 2023 11:02
[2023-05-03] MEDS: DOCUSATE SODIUM 100 MG CAPSULE PO SCH (09:12)
[2023-05-03] MEDS: SENNOSIDES 8.6 MG TABLET PO SCH (09:12)
--- NOTE | 2023-05-03 10:17 | Discharge Summary ---
Diagnosis/Chief Complaint Date of Admission Apr 30, 2023 at 21:29 Date of Discharge Discharge Diagnosis SBO HTN DM Discharge Summary Discharge Physical Examination Allergies: Coded Allergies: No Known Drug Allergies (Unverified , 03/17/11) Vitals & I&Os Vital Signs Date Time Temp Pulse Resp B/P (MAP) Pulse Ox O2 Delivery O2 Flow Rate FiO2 05/03/23 12:25 36.8 82 18 165/63 98 Room Air 04/30/23 22:07 21 General Appearance: Alert, Oriented X3 Respiratory: Clear to Auscultation Cardiovascular: Regular Rate Psych/Mental Status: Mental Status NL Hospital Course Was the Problem List Reviewed?: Yes Uneventful course after he was admitted for SBO. IVF and NPO status maintained along with NGT placement. Slow recovery. SBO finally resolved and bowel function returned. General surgery was appreciated. He improved and was restarted on his insulin and BP meds at [facility]. Labs (last 24 hrs) Laboratory Tests 04/30/23 20:03: White Blood Count 8.9, Red Blood Count 4.31, Hemoglobin 13.3, Hematocrit 38L, Mean Corpuscular Volume 89, Mean Corpuscular Hemoglobin 31, Mean Corpuscular Hemoglobin Concent 35, Red Cell Distribution Width 13.1, Platelet Count 221, Mean Platelet Volume 9.8, Immature Granulocyte % (Auto) 1, Neutrophils (%) (Auto) 65, Lymphocytes (%) (Auto) 18, Monocytes (%) (Auto) 15H, Eosinophils (%) (Auto) 1, Basophils (%) (Auto) 1, Neutrophils # (Auto) 5.7, Lymphocytes # (Auto) 1.6, Monocytes # (Auto) 1.4H, Eosinophils # (Auto) 0.1, Basophils # (Auto) 0.0, Immature Granulocyte # (Auto) 0.0, Prothrombin Time 13.3, INR Comment 1.0, Activated Partial Thromboplast Time 29, Sodium Level 142, Potassium Level 2.8L, Chloride Level 99, Carbon Dioxide Level 29, Anion Gap 14, Blood Urea Nitrogen 17, Creatinine 0.88, Estimat Glomerular Filtration Rate 91, BUN/Creatinine Ratio 19, Glucose Level 114H, Calcium Level 8.7, Corrected Calcium 8.9, Magnesium Level 2.2, Total Bilirubin 2.0H, Aspartate Amino Transf (AST/SGOT) 47H, Alanine Aminotransferase (ALT/SGPT) 56H, Alkaline Phosphatase 72, Total Protein 6.4, Albumin 3.8, Amylase Level 23L, Lipase 14, Serum Alcohol < 10 04/30/23 23:30: Glucometer 111H 05/01/23 05:00: White Blood Count 9.2, Red Blood Count 4.08L, Hemoglobin 12.4L, Hematocrit 36L, Mean Corpuscular Volume 89, Mean Corpuscular Hemoglobin 30, Mean Corpuscular Hemoglobin Concent 34, Red Cell Distribution Width 13.2, Platelet Count 219, Mean Platelet Volume 10.0, Immature Granulocyte % (Auto) 0, Neutrophils (%) (Auto) 63, Lymphocytes (%) (Auto) 20, Monocytes (%) (Auto) 15H, Eosinophils (%) (Auto) 1, Basophils (%) (Auto) 0, Neutrophils # (Auto) 5.8, Lymphocytes # (Auto) 1.9, Monocytes # (Auto) 1.4H, Eosinophils # (Auto) 0.1, Basophils # (Auto) 0.0, Immature Granulocyte # (Auto) 0.0, Sodium Level 142, Potassium Level 3.0L, Chloride Level 104, Carbon Dioxide Level 28, Anion Gap 10, Blood Urea Nitrogen 12, Creatinine 0.73, Estimat Glomerular Filtration Rate 96, BUN/Creatinine Ratio 16, Glucose Level 56*L, Calcium Level 8.2L, Corrected Calcium 9.0, Total Bilirubin 1.4H, Aspartate Amino Transf (AST/SGOT) 36H, Alanine Aminotransferase (ALT/SGPT) 45, Alkaline Phosphatase 68, Total Protein 5.7L, Albumin 3.0L 05/01/23 05:06: Glucometer 54*L 05/01/23 06:04: Glucometer 81 05/01/23 06:25: Magnesium Level 2.0 05/01/23 11:16: Glucometer 68L 05/01/23 17:34: Glucometer 81 05/01/23 17:40: Glucometer 80 05/01/23 20:45: Glucometer 84 05/01/23 23:27: Glucometer 92 05/02/23 05:22: Glucometer 117H 05/02/23 05:38: White Blood Count 7.5, Red Blood Count 4.00L, Hemoglobin 12.1L, Hematocrit 36L, Mean Corpuscular Volume 90, Mean Corpuscular Hemoglobin 30, Mean Corpuscular Hemoglobin Concent 34, Red Cell Distribution Width 13.1, Platelet Count 204, Mean Platelet Volume 9.9, Immature Granulocyte % (Auto) 2, Neutrophils (%) (Auto) 66, Lymphocytes (%) (Auto) 18, Monocytes (%) (Auto) 13H, Eosinophils (%) (Auto) 1, Basophils (%) (Auto) 0, Neutrophils # (Auto) 4.9, Lymphocytes # (Auto) 1.4, Monocytes # (Auto) 1.0, Eosinophils # (Auto) 0.1, Basophils # (Auto) 0.0, Immature Granulocyte # (Auto) 0.1, Sodium Level 141, Potassium Level 3.9, Chloride Level 109H, Carbon Dioxide Level 24, Anion Gap 8, Blood Urea Nitrogen 5L, Creatinine 0.70, Estimat Glomerular Filtration Rate 97, BUN/Creatinine Ratio 7, Glucose Level 129H, Calcium Level 7.8L, Corrected Calcium 8.4L, Total Bilirubin 1.4H, Aspartate Amino Transf (AST/SGOT) 24, Alanine Aminotransferase (ALT/SGPT) 34, Alkaline Phosphatase 66, Total Protein 5.5L, Albumin 3.3 05/02/23 11:25: Glucometer 183H 05/02/23 17:04: Glucometer 217H 05/02/23 23:04: Glucometer 133H 05/03/23 05:14: White Blood Count 8.2, Red Blood Count 4.15L, Hemoglobin 12.7L, Hematocrit 37L, Mean Corpuscular Volume 89, Mean Corpuscular Hemoglobin 31, Mean Corpuscular Hemoglobin Concent 34, Red Cell Distribution Width 13.1, Platelet Count 227, Me an Platelet Volume 10.1, Immature Granulocyte % (Auto) 4, Neutrophils (%) (Auto) 62, Lymphocytes (%) (Auto) 21, Monocytes (%) (Auto) 12, Eosinophils (%) (Auto) 1, Basophils (%) (Auto) 1, Neutrophils # (Auto) 5.1, Lymphocytes # (Auto) 1.8, Monocytes # (Auto) 1.0, Eosinophils # (Auto) 0.1, Basophils # (Auto) 0.0, Immature Granulocyte # (Auto) 0.3H, Sodium Level 138, Potassium Level 3.7, Chloride Level 107, Carbon Dioxide Level 22, Anion Gap 9, Blood Urea Nitrogen 4L , Creatinine 0.72, Estimat Glomerular Filtration Rate 96, BUN/Creatinine Ratio 6, Glucose Level 164H, Glucometer 159H, Calcium Level 8.1L, Corrected Calcium 8.4L, Total Bilirubin 1.5H, Aspartate Amino Transf (AST/SGOT) 30, Alanine Aminotransferase (ALT/SGPT) 38, Alkaline Phosphatase 77, Total Protein 6.0L, Albumin 3.6 05/03/23 11:44: Glucometer 210H Pending Labs Laboratory Tests 04/30/23 20:03: White Blood Count 8.9, Red Blood Count 4.31, Hemoglobin 13.3, Hematocrit 38, Mean Corpuscular Volume 89, Mean Corpuscular Hemoglobin 31, Mean Corpuscular Hemoglobin Concent 35, Red Cell Distribution Width 13.1, Platelet Count 221, Mean Platelet Volume 9.8, Immature Granulocyte % (Auto) 1, Neutrophils (%) (Au to) 65, Lymphocytes (%) (Auto) 18, Monocytes (%) (Auto) 15, Eosinophils (%) (Auto) 1, Basophils (%) (Auto) 1, Neutrophils # (Auto) 5.7, Lymphocytes # (Auto) 1.6, Monocytes # (Auto) 1.4, Eosinophils # (Auto) 0.1, Basophils # (Auto) 0.0, Immature Granulocyte # (Auto) 0.0, Prothrombin Time 13.3, INR Comment 1.0, Activated Partial Thromboplast Time 29, Sodium Level 142, Potassium Level 2.8, Chloride Level 99, Carbon Dioxide Level 29, Anion Gap 14, Blood Urea Nitrogen 17, Creatinine 0.88, Estimat Glomerular Filtration Rate 91, BUN/Creatinine Ratio 19, Glucose Level 114, Calcium Level 8.7, Corrected Calcium 8.9, Magnesium Level 2.2, Total Bilirubin 2.0, Aspartate Amino Transf (AST/SGOT) 47, Alanine Aminotransferase (ALT/SGPT) 56, Alkaline Phosphatase 72, Total Protein 6.4, Albumin 3.8, Amylase Level 23, Lipase 14, Serum Alcohol < 10 04/30/23 23:30: Glucometer 111 05/01/23 05:00: White Blood Count 9.2, Red Blood Count 4.08, Hemoglobin 12.4, Hematocrit 36, Mean Corpuscular Volume 89, Mean Corpuscular Hemoglobin 30, Mean Corpuscular Hemoglobin Concent 34, Red Cell Distribution Width 13.2, Platelet Count 219, Mean Platelet Volume 10.0, Immature Granulocyte % (Auto) 0, Neutrophils (%) (Auto) 63, Lymphocytes (%) (Auto) 20, Monocytes (%) (Auto) 15, Eosinophils (%) (Auto) 1, Basophils (%) (Auto) 0, Neutrophils # (Auto) 5.8, Lymphocytes # (Auto) 1.9, Monocytes # (Auto) 1.4, Eosinophils # (Auto) 0.1, Basophils # (Auto) 0.0, Immature Granulocyte # (Auto) 0.0, Sodium Level 142, Potassium Level 3.0, Chloride Level 104, Carbon Dioxide Level 28, Anion Gap 10, Blood Urea Nitrogen 12, Creatinine 0.73, Estimat Glomerular Filtration Rate 96, BUN/Creatinine Ratio 16, Glucose Level 56, Calcium Level 8.2, Corrected Calcium 9.0, Total Bilirubin 1.4, Aspartate Amino Transf (AST/SGOT) 36, Alanine Aminotransferase (ALT/SGPT) 45, Alkaline Phosphatase 68, Total Protein 5.7, Albumin 3.0 05/01/23 05:06: Glucometer 54 05/01/23 06:04: Glucometer 81 05/01/23 06:25: Magnesium Level 2.0 05/01/23 11:16: Glucometer 68 05/01/23 17:34: Glucometer 81 05/01/23 17:40: Glucometer 80 05/01/23 20:45: Glucometer 84 05/01/23 23:27: Glucometer 92 05/02/23 05:22: Glucometer 117 05/02/23 05:38: White Blood Count 7.5, Red Blood Count 4.00, Hemoglobin 12.1, Hematocrit 36, Mean Corpuscular Volume 90, Mean Corpuscular Hemoglobin 30, Mean Corpuscular Hemoglobin Concent 34, Red Cell Distribution Width 13.1, Platelet Count 204, Mean Platelet Volume 9.9, Immature Granulocyte % (Auto) 2, Neutrophils (%) (Auto) 66, Lymphocytes (%) (Auto) 18, Monocytes (%) (Auto) 13, Eosinophils (%) (Auto) 1, Basophils (%) (Auto) 0, Neutrophils # (Auto) 4.9, Lymphocytes # (Auto) 1.4, Monocytes # (Auto) 1.0, Eosinophils # (Auto) 0.1, Basophils # (Auto) 0.0, Immature Granulocyte # (Auto) 0.1, Sodium Level 141, Potassium Level 3.9, Chloride Level 109, Carbon Dioxide Level 24, Anion Gap 8, Blood Urea Nitrogen 5, Creatinine 0.70, Estimat Glomerular Filtration Rate 97, BUN/Creatinine Ratio 7, Glucose Level 129, Calcium Level 7.8, Corrected Calcium 8.4, Total Bilirubin 1.4, Aspartate Amino Transf (AST/SGOT) 24, Alanine Aminotransferase (ALT/SGPT) 34, Alkaline Phosphatase 66, Total Protein 5.5, Albumin 3.3 05/02/23 11:25: Glucometer 183 05/02/23 17:04: Glucometer 217 05/02/23 23:04: Glucometer 133 05/03/23 05:14: White Blood Count 8.2, Red Blood Count 4.15, Hemoglobin 12.7, Hematocrit 37, Mean Corpuscular Volume 89, Mean Corpuscular Hemoglobin 31, Mean Corpuscular Hemoglobin Concent 34, Red Cell Distribution Width 13.1, Platelet Count 227, Mean Platelet Volume 10.1, Immature Granulocyte % (Auto) 4, Neutrophils (%) (Auto) 62, Lymphocytes (%) (Auto) 21, Monocytes (%) (Auto) 12, Eosinophils (%) (Auto) 1, Basophils (%) (Auto) 1, Neutrophils # (Auto) 5.1, Lymphocytes # (Auto) 1.8, Monocytes # (Auto) 1.0, Eosinophils # (Auto) 0.1, Basophils # (Auto) 0.0, Immature Granulocyte # (Auto) 0.3, Sodium Level 138, Potassium Level 3.7, Chloride Level 107, Carbon Dioxide Level 22, Anion Gap 9, Blood Urea Nitrogen 4, Creatinine 0.72, Estimat Glomerular Filtration Rate 96, BUN/Creatinine Ratio 6, Glucose Level 164, Glucometer 159, Calcium Level 8.1, Corrected Calcium 8.4, Total Bilirubin 1.5, Aspartate Amino Transf (AST/SGOT) 30, Alanine Aminotransferase (ALT/SGPT) 38, Alkaline Phosphatase 77, Total Protein 6.0, Albumin 3.6 05/03/23 11:44: Glucometer 210 Discharge Home Medications: Active Scripts Active Reported Lantus Solostar (Insulin Glargine,Hum.rec.anlog) 100 Unit/Ml (3 Ml) Insuln.pen 43 Unit SQ BID Enalapril Maleate 20 Mg Tablet 30 Mg PO DAILY TAKES 1 (20MG) TABLETS Amlodipine Besylate 5 Mg Tablet 5 Mg PO DAILY Atorvastatin Calcium 40 Mg Tablet 40 Mg PO HS Meloxicam 7.5 Mg Tablet 7.5 Mg PO DAILY Metoprolol Succinate 50 Mg Tab.er.24h 50 Mg PO DAILY Instructions to patient/family Please see electronic discharge instructions given to patient. GRISELDA CROCKETT DO May 03, 2023 10:17
[2023-05-03] MEDS ORDERED: amLODIPine 5 MG TABLET PO ONE (10:30)
[2023-05-03 11:47] VITALS: BP 165/63
[2023-05-03 12:25] VITALS: BP 165/63
[2023-05-03] MEDS ORDERED: inSUlin DETERMIR 1 UNIT/0.01 ML (CHARGE PER UNIT) SQ SCH (21:00)
[2023-05-04] MEDS ORDERED: ENALAPRIL 10 MG TABLET PO SCH (09:00)
[2023-05-04] MEDS ORDERED: MELOXICAM 7.5 MG TABLET PO SCH (09:00)
[2023-05-04] MEDS ORDERED: amLODIPine 5 MG TABLET PO SCH (09:00)
== END 2023-05-03 12:30 | disposition home or self-care (01) | DRG 390 ==
LOC: EDUNIT# 19:54 → ER 19:57 → 4TH 21:29
PROVIDERS: ADMIT Internal Medicine; ATTEND Internal Medicine
PROC: 0D9670Z Drainage of Stomach with Drainage Device, Via Natural or Artificial Opening (ICD-10-PCS; principal; 2023-04-30)
DX: K56.609 Unspecified intestinal obstruction, unspecified as to partial versus complete obstruction (principal); K80.20 Calculus of gallbladder without cholecystitis without obstruction; I10 Essential (primary) hypertension; E78.00 Pure hypercholesterolemia, unspecified; E11.649 Type 2 diabetes mellitus with hypoglycemia without coma; M19.90 Unspecified osteoarthritis, unspecified site; E87.6 Hypokalemia; F17.220 Nicotine dependence, chewing tobacco, uncomplicated; F17.200 Nicotine dependence, unspecified, uncomplicated; Z79.4 Long term (current) use of insulin; Z79.84 Long term (current) use of oral hypoglycemic drugs; Z79.899 Other long term (current) drug therapy; Z79.891 Long term (current) use of opiate analgesic
CPT/HCPCS: 36415; 74018; 74022; 74177; 80053; 80320; 82150; 82947; 83690; 83735; 85025; 85610; 85730; 93041; 96361; 96374; 96375